=== PATIENT | female | born 1940 | race Two or more races ===

== ENCOUNTER 2023-03-28 09:24 | Outpatient (OUT) | payer OTHER, SELFPAY ==
[2023-03-28 10:01] LABS: Hematocrit 35.5 % (36.0-48.0); Hemoglobin 11.8 g/dL (12.0-16.0); Mean Corpuscular HGB Conc 33.2 g/dL (29.9-35.2); Mean Corpuscular Hemoglobin 30.5 pg (26.7-34.0); Mean Corpuscular Volume 91.7 fL (81.0-99.0); Mean Platelet Volume 9.9 fL (9.5-13.5); Platelet Count 218 10^3/uL (150-450); Red Blood Count 3.87 10^6/uL (4.20-5.40); Red Cell Distribution Width 13.1 % (11.0-15.0); White Blood Count 8.8 10^3/uL (4.0-11.0)
[2023-03-28 11:18] LABS: Alanine Aminotransferase 20 U/L (14-59); Albumin Level 3.6 g/dL (3.4-5.0); Alkaline Phosphatase 70 U/L (46-116); Anion Gap 9.6; Aspartate Amino Transferase 13 U/L (15-37); BUN Creatinine Ratio 26.7; Bilirubin Total 0.5 mg/dL (0.2-1.0); Calcium 9.6 mg/dL (8.5-10.1); Carbon Dioxide 32.4 mmol/L (21.0-32.0); Chloride 97 mmol/L (98-107); Chol HDL Ratio 2.6; Cholesterol 195 mg/dL (<=200); Estimated GFR (African America 47 (>=60); Estimated GFR (Non-African Ame 39 (>=60); Globulin 3.5 g/dL; Glucose 89 mg/dL (74-106); HDL Cholesterol 75 mg/dL (40-60); Sodium 135 mmol/L (136-145); Total Protein 7.1 g/dL (6.4-8.2); Triglycerides 95 mg/dL (<=150)
== END 2023-03-28 09:25 | disposition home or self-care (01) ==
LOC: LAB 09:25
DX: R60.0 Localized edema (principal); I10 Essential (primary) hypertension; E78.5 Hyperlipidemia, unspecified
CPT/HCPCS: 36415; 80053; 80061; 85027

== ENCOUNTER 2023-07-04 12:54 | Outpatient (OUT) | payer OTHER, SELFPAY ==
--- NOTE | 2023-07-04 12:59 | XR_ITS ---
The [address] [address] Patient Name: MARIAN LADD MRN: [id number] date: 1940 Sex: F Assigned Patient Location: [facility] Current Patient Location: [facility] Accession/Order Number: [id number] Exam Date: 07/04/2023 13:10 Report Date: 07/04/2023 14:02 At the request of: VICTOR HUGO RIOS Procedure: XR DEXA axial skeleton EXAMINATION: XR DEXA axial skeleton, 07/04/2023 1:10 PM EST HISTORY: Post Menopausal Syndrome COMPARISON: None. TECHNIQUE: Dual-energy X-ray absorptiometry (DEXA) bone density study performed for the axial skeleton. HISTORY: Post Menopausal Syndrome FINDINGS: Bone mineral density lumbar spine L1-L4 is artifactually elevated secondary to marked proliferative osteophyte formation The lowest bone mineral densities in the right femoral neck measuring 0.737 g/sq cm. T score -2.2. WHO classification: Osteopenia XR/XR DEXA axial skeleton IMPRESSION: Osteopenia. Moderate fracture risk Electronically authenticated by: ABNER SMITH Date: 07/04/2023 14:02
--- OUTSIDE RECORDS SUMMARY | 2023-07-04 13:02 | XMS_ITS | CCD ---
Author Name Unknown Address [address] [place] [address] Organization [facility] Care Team Providers Care Fatback Trimmer Name Role Phone Alisha Bergman Unavailable Medications Current Medications Medication Drug Class(es) Dates Sig (Normalized) Sig (Original) amLODIPine 10 mg oral tablet (2 sources) Dihydropyridine Calcium Channel [place] Start: 3 take 1 tablet by mouth every twenty-four hours amLODIPine Besylate 10 MG 1 tablet Orally Once a day for 90 days Mar, Active atorvastatin 10 mg oral tablet (3 sources) HMG-CoA Reductase Inhibitor take 1 tablet by mouth every twenty-four hours Atorvastatin Calcium 10 MG 1 tablet Orally Once a day for 90 days Active furosemide 20 mg oral tablet (3 sources) Loop Diuretic take 1 tablet by mouth every twenty-four hours Furosemide 20 MG 1 tablet Orally Once a day for 90 days Active hydroCHLOROthiazide 25 mg / lisinopril 20 mg oral tablet (3 sources) Thiazide Diuretic, Angiotensin Converting Enzyme Inhibitor take 1 tablet by mouth every twenty-four hours Lisinopril-hydro CHLOROthiazide 20-25 MG 1 tablet Orally Once a day Active Ketoconazole (3 sources) Azole Antifungal Start: 3 Ketoconazole 1 % 1 application Externally Once a day for 28 days Dec, Active omeprazole 20 mg delayed release oral capsule (3 sources) Proton Pump Inhibitor take 1 capsule by mouth once daily Omeprazole 20 MG 1 capsule 30 minutes before morning meal Orally Once a day for 90 days Active verapamil hydrochloride 240 mg extended release oral tablet (1 source) Calcium Channel [place] take 1 tablet by mouth every twelve hours Verapamil HCl ER 240 MG 1 tablet Orally twice a day Active Problems Problem Classification Problem Date Documented Da te Episodic/Chronic Deficiency and other anemia (1 source) Iron deficiency anemia; Translations: [Iron deficiency anemia, unspecified] Episodic Deficiency and other anemia (2 sources) Iron deficiency anemia, unspecified; Translations: [Iron deficiency anemia] Episodic Disorders of lipid metabolism (3 sources) Hyperlipidemia; Translations: [Hyperlipidemia, unspecified] Chronic Esophageal disorders (3 sources) Gastroesophageal reflux disease; Translations: [Gastro-esophageal reflux disease without esophagitis] Chronic Essential hypertension (4 sources) Essential hypertension; Translations: [Essential (primary) hypertension] Chronic Immunizations and screening for infectious disease (1 source) Encounter for immunization Episodic Other non-traumatic joint disorders (1 source) Pain in right hip Episodic Vital Signs Date Time Vital Sign Value Performing Clinician Facility 04-04-2023 10:15-0500 Body height 168.91 cm Alisha Bergman Other [facility] Other 04-04-2023 10:15-0500 Body mass index (BMI) [Ratio] 28.12 kg/m2 Alisha Bergman Other [facility] Other 04-04-2023 10:15-0500 Body weight 80.24 kg Alisha Bergman Other [facility] Other 04-04-2023 10:15-0500 Diastolic blood pressure 68 mm[Hg] Alisha Bergman Other [facility] Other 04-04-2023 10:15-0500 Respiratory rate 18 /min Alisha Bergman Other [facility] Other 04-04-2023 10:15-0500 SaO2% (BldA) [Mass fraction] 98 % Alisha Bergman Other [facility] Other 04-04-2023 10:15-0500 Systolic blood pressure 130 mm[Hg] Alisha Bergman Other [facility] Other Encounters Encounter Date Encounter Type Care Provider Facility Start: 06-15-2023 End: 06-15-2023 ambulatory Alishacarl Bergman Other [facility] Other Start: 06-15-2023 Telephone encounter Alishacarl Bergman [facility] Start: 04-04-2023 End: 04-04-2023 ambulatory Alisha Bergman Other [facility] Other Start: 04-04-2023 Office outpatient vi sit 25 minutes Alisha Bergman [facility] Start: 02-09-2023 End: 02-09-2023 ambulatory Alisha Bergman Other [facility] Other Start: 02-09-2023 Telephone encounter Alisha Bergman [facility] Immunizations Immunization Date Immunization Notes Care Provider Fa danielty 04-04-2023 Prevnar 20 Alisha Bergman Other [facility] Other 02-25-2022 influenza, seasonal, injectable Alisha Bergman Other [facility] Other Payers Date Payer Category Payer Policy ID Medicare [id number] 2.1 [id number] Medicare [id number] 2.1 [id number] Medicare [id number] 2.1 [id number] Unknown [id number] Social History Date Type Detail Facility Sex Assigned At [facility] Other Evaluation note 04-04-2023 Note Date & Type Note Facility 04-04-2023 Evaluation note Encounter Date Diagnosis Assessment Notes Mar, Right hip pain (ICD-10 - M25.551) Patient requesting to see chiropractor, referral given. Mar, Essential hypertension (ICD-10 - I10) BP well controlled on current dose of antihypertens fitz. Will change from Verapamil ER to amlodipine due to cost. Recommend checking home readings. Will f/u in 4 months for recheck Mar, Iron deficiency anemia (ICD-10 - D50.9) Hgb was just mildly low, suspect this is improved from last check since starting iron, will continue Mar, Immunization due (ICD-10 - Z23) [facility] Other Evaluation note Note Date & Type Note Facility Evaluation note No Information [facility] Other History general Narrative - Reported Note Date & Type Note Facility History general Narrative - Reported Type Medical History HTN Surgical History twisted colon sx 2014 Surgical History tonsillectomy Hospitalization History see above Hospitalization History child [facility] Other Reason for Referral Reason right hip pain Diagnosis 1 Right hip pain (M25. 551) Referral Organization [facility] Referring Provider First Name Alisha Referring Provider Last Name [facility] Referring Provider [facility] Referred Organization Unknown Facility Referred Provider Specialty Chiropractic Referral Priority Routine Additional Source Comments REASON FOR VISIT (unrecogniz ed section and content) refills3 month [facility] FOR RECORDS PERTAINING TO PATIENTS WHO ARE OR HAVE BEEN ENROLLED IN A CHEMICAL DEPENDENCY/SUBSTANCEABUSE PROGRAM, SOME INFORMATION MAY BE OMITTED. This clinical summary was aggregated from multiple sources. Caution should be exercised in using it in the provision of clinical care. This summary normalizes information from multiple sources, and as a consequence, information in this document may materially change the coding, format and clinical context of patient data. In addition, data may be omitted in some cases. CLINICAL DECISIONS SHOULD BE BASED ON THE PRIMARY CLINICAL RECORDS. [employer] provides no warranty or guarantee of the accuracy or completeness of information in this document.
== END 2023-07-04 12:55 | disposition home or self-care (01) ==
LOC: RAD 12:54
PROVIDERS: Visit Provider Nurse Practitioner
DX: M85.80 Other specified disorders of bone density and structure, unspecified site (principal); Z78.0 Asymptomatic menopausal state
CPT/HCPCS: 77080

== ENCOUNTER 2024-01-07 18:27 | Observation (INO) | payer OTHER, SELFPAY ==
[2024-01-07] VITALS (11 sets, daily range): BP systolic 124–143; BP diastolic 66–82; PULSE 0–71; TEMP 36.6–36.9; O2SAT 90–100; BMI 27.4; BMI 29.1
--- OUTSIDE RECORDS SUMMARY | 2024-01-07 18:51 | XMS_ITS | CCD ---
Author Organization [facility] Care Team Providers Care Office Nurse Name Role Phone Alisha Bergman Unavailable Arabella Maria Attending Unavailable Arabella Maria Attending Unavailable Arabella Maria Attending Unavailable Arabella Maria Attending Unavailable Arabella Maria Attending Unavailable Medications Current Medications Medication Drug Class(es) Dates Sig (Normalized) Sig (Original) amLODIPine 10 mg oral tablet (3 sources) Dihydropyridine Calcium Channel [place] Start: 3 take 1 tablet by mouth every twenty-four hours amLODIPine Besylate 10 MG 1 tablet Orally Once a day for 90 days Mar, Active atorvastatin 10 mg oral tablet (4 sources) HMG-CoA Reductase Inhibitor take 1 tablet by mouth every twenty-four hours Atorvastatin Calcium 10 MG 1 tablet Orally Once a day for 90 days Active furosemide 20 mg oral tablet (4 sources) Loop Diuretic take 1 tablet by mouth every twenty-four hours Furosemide 20 MG 1 tablet Orally Once a day for 90 days Active hydroCHLOROthiazide 25 mg / lisinopril 20 mg oral tablet (4 sources) Thiazide Diuretic, Angiotensin Converting Enzyme Inhibitor take 1 tablet by mouth every twenty-four hours Lisinopril-hydro CHLOROthiazide 20-25 MG 1 tablet Orally Once a day Active Ketoconazole (4 sources) Azole Antifungal Start: 3 Ketoconazole 1 % 1 application Externally Once a day for 28 days Dec, Active omeprazole 20 mg delayed release oral capsule (4 sources) Proton Pump Inhibitor take 1 capsule [...] Da te Episodic/Chronic Deficiency and other anemia (2 sources) Iron deficiency anemia; Translations: [Iron deficiency anemia, unspecified] Episodic Deficiency and other anemia (2 sources) Iron deficiency anemia, unspecified; Translations: [Iron deficiency anemia] Episodic Disorders of lipid metabolism (4 sources) Hyperlipidemia; Translations: [Hyperlipidemia, unspecified] Chronic Esophageal disorders (4 sources) Gastroesophageal reflux disease; Translations: [Gastro-esophageal reflux disease without esophagitis] Chronic Essential hypertension (5 sources) Essential hypertension; Translations: [Essential (primary) hypertension] Chronic Immunizations and screening for infectious disease (1 source) Encounter for immunization Episodic Other non-traumatic joint disorders (1 source) Pain in right hip Episodic Results Test Name Value Interpretation Reference Range Facil ity Family Medicine Office/Clini c Noteon 12-26-2023 Family Medicine Office/Clinic Note Family Medicine Office/Clinic Note HPI Staff Marian is a 83 year old female presenting with recheck B/P and also inquiring about lab she was here 2 weeks ago for Wellness, so she wasn't sure if she needs labs, she has been fasting this morning in case she can get her labs done here today No issues going on with her. No questions or concerns today History of Present Illness pt presents today for BP check Review of Systems PHQ Score Initial Depression Screen Score: 0 SCORE Physical Exam Vitals & Measurements T: 36.8 ?C(Temporal Artery) HR: 80(Peripheral) RR: 20 BP: 122/84 SpO2: 97% HT: 67 in HT: 170.0 cm WT: 80.3 kg WT: 176.66 lb BMI: 27.79 General: alert, no acute distress ENMT: oral mucosa moist, no pharyngeal erythema or exudate Cardiovascular: regular rate and rhythm, normal peripheral perfusion Respiratory: Lungs CTA, respirations non labored Extremities: no deformity, no trauma Neurological: oriented x 4, LOC appropriate for age, CN II-XII intact, motor strength equal & normal bilaterally, speech normal Assessment/Plan 1. Hyperlipidemia (E78.5: Hyperlipidemia, unspecified) pt had labs last March. Will order labs today. she will return in March for lab work. pt denies needs at this time. RTC 6 months Ordered: Comprehensive Metabolic Panel Lipid Panel Thyroid Stimulating Hormone 2. Hypertension (I10: Essential (primary) hypertension) BP at goal today Ordered: Comprehensive Metabolic Panel Lipid Panel Thyroid Stimulating Hormone 3. BMI 28.0-28.9,adult (Z68.28: Body mass index [BMI] 28.0-28.9, adult) BMI education given Ordered: Comprehensive Metabolic Panel Lipid Panel Thyroid Stimulating Hormone 4. Non-smoker (Z78.9: Other specified health status) continue not smoking Ordered: Comprehensive Metabolic Panel Lipid Panel Thyroid Stimulating Hormone Follow-up No qualifying data available Problem List/Past Medical History Ongoing BMI 28.0-28.9,adult GERD (gastroesophageal reflux disease) Hyperlipidemia Hypertension Osteopenia Post menopausal syndrome Wellness examination Historical No qualifying data Procedure/Surgical History Bilateral cataract surgery (2019), Surgery. Medications atorvastatin 10 mg Tab, 10 mg= 1 tab(s), Oral, Daily, 3 refills Citracal + D, 1 tab, Oral, Daily ferrous sulfate, 65 mg, Oral, Daily Fosamax 70 mg Tab, 70 mg= 1 tab(s), Oral, q7day, 3 refills furosemide 20 mg Tab, 20 mg= 1 tab(s), Oral, Daily, 3 refills hydrochlorothiazide-li sinopril 25 mg-20 mg Tab, 1 tab(s), Oral, Daily, 3 refills magnesium gluconate 250 mg oral tablet, 250 mg= 1 tab(s), Oral, Daily omeprazole 20 mg Cap-DR, 20 mg= 1 cap(s), Oral, Daily, 3 refills potassium chloride 20 mEq ER Tab, 20 mEq= 1 tab(s), Oral, Daily, 3 refills verapamil 240 mg ER Tab, 240 mg= 1 tab(s), Oral, q12hr, 3 refills Vitamin D3, See Instructions Allergies No Known Allergies Social History Alcohol Current, Liquor, 1-2 times per year, Alcohol use interferes with work or home: No. Drinks more than intended: No. Others hurt by drinking: No. Ready to change: No. Household alcohol concerns: No., 12/13/2023 Substance Abuse - Denies Substance Abuse, 12/13/2023 Tobacco - Denies Tobacco Use, 12/13/2023 Never (less than 100 in lifetime) Tobacco Use:. Never Smokeless Tobacco Use:. Cigarettes, Household tobacco concerns: No., 12/26/2023 Family History Esophageal cancer: Mother. Primary malignant neoplasm of prostate: Father. Immunizations Vaccine Date Status pneumococcal 20-valent conjugate vaccine 04/04/2023 Recorded influenza virus vaccine, inactivated 03/02/2023 Recorded Normal [facility] Comment on above: Result Comment: Elec tronically Signed By: Arabella Mesa\.vianey\Date and Time Signed: 12/26/23 11:37 EDT Family Medicine Office/Clini c Noteon 12-14-2023 Family Medicine Office/Clinic Note Family Medicine Office/Clinic Note Chief Complaint Medicare Wellness Visit Review of Systems PHQ Score Initial Depression Screen Score: 0 SCORE Physical Exam Vitals & Measurements HT: 170 cm HT: 67 in WT: 81.2 kg WT: 178.64 lb BMI: 28.1 Assessment/Plan 1. Annual visit for general adult medical examination without abnormal findings (Z00.00: Encounter for general adult medical examination without abnormal findings) The patient was given a customized and personalized print out of all the current AHRQ USPSTF?s recommendations for preventative services and all current CDC recommended immunizations, relevant risk recommendations and the following patient brochures were given. Reviewed Medicare Prevention Services checklist. CDC-Falls Prevention and home safety screening reviewed. Patient denies any falls in last 12 months, voices no worry about falling. Exhibits no problems with sitting, standing or ambulation. Patient aware with keeping walk way area free of clutter to prevent tripping and/or falling. [place] Advance Directives reviewed. Documents remain at home, encouraged to bring in for scanning into chart. Patient denies any problems with ADL?s and Instrumental ADL?s. Cognitive screening completed with memory and clock face drawing. No deficits noted. Immunization record reviewed, discussed Shingrix vaccine with educational handout and availability. No COVID vaccines have been administered. Allergies and medications reviewed and up to date. No concerns with taking medication as prescribed. Reviewed OTC medications, medication list up to date. Blood tests were reviewed: UTD. Patient will continue to have routine blood work done as directed by pcp. No concerns with bowel/ bladder. Patient has aged out for routine colonoscopies and understands that if changes in bowels occurs to contact pcp. Reviewed pain symptoms : back pain present. Patient rates pain as a 4 out of 10, no pain medications taken. Patient is following up with Dr. Luciano, Chiropractor. Reviewed all outside providers that patient follows. Last visit summary notes available in chart and/or have been requested. Patient declines any signs or symptoms of depression at this time. 8 minutes spent with screening and documentation. PHQ2 screening score 0. Patient drinks alcohol 1-2 times yearly. Patient has no more than 1-2 alcohol drinks, denies concerns. 8 minutes spent with screening and documentation. Audit score 1. Follow up scheduled with PCP, 12/26/23 AWV has been scheduled, 12/15/2024 Patient agrees to a [facility] referral. Information handout provided to patient. CCM Nurse Card also provided to patient. 2. Hypertension (I10: Essential (primary) hypertension) Patient is taking daily as directed. Does monitor BP pressure at home. HTN stoplight reviewed with BP goal to be <140/90. Reviewed different factors that can alter blood pressure readings. Education handout provided with s/s to monitor for and report to provider. Patient is encouraged to increase portions of fruit, vegetables, fiber and increase exercise as much as tolerable. Reviewed importance with monitoring foods high in salt content and encouraged to limit intake, if unsure encouraged to discuss with their PCP. Encouraged to eat more chicken, fish and lean white meats and limits red meats in diet. Discussed importance with keeping BP under good control to reduce CVA risk factors. Handouts on Cardiac nutrition, low sodium seasoning, and High Blood Pressure and Older Adults from the [employer] [place] [employer] provided. Will continue to f/u with PCP during office visits and as needed. 3. GERD (gastroesophageal reflux disease) (K21.9: Gastro-esophageal reflux disease without esophagitis) Patient is aware of diet changes with healthier eating habits, such as not eating late at night, losing or maintaining a healthy weight. Importance of not smoking and avoiding and/or reducing alcohol intake. Avoid tight clothing around the waist line and try to avoid spicy or high acid foods. Patient taking PPI medications as directed with symptom management. Reviewed nutrition therapy with recommended foods to help control your symptoms. Will continue to follow up with pcp as directed and prn. 4. Hyperlipidemia (E78.5: Hyperlipidemia, unspecified) Reviewed healthy lifestyle with low fat diet and exercise regimen. When you are overweight our body produces more lipids. Risk also increases with family history of hyperlipidemia and with monitoring alcohol use and avoid smoking. Pt voices understanding with importance of monitoring dietary intake to reduce risk factors associated with CVA. Taking statin medications daily as directed. Will continue to follow up with office visits with updated labs as directed. 5. Osteopenia (M85.80: Other specified disorders of bone density and structure, unspecified site) Patient takes alendronate as prescribed for management of her Osteopenia. Denies any bone pain or discomfort. Patient has no reports of fractures. (more content not included)... [facility] Comment on above: Result Comment: Elec tronically Signed By: Arabella Mesa\.br\Date and Time Signed: 12/14/23 12:54 EDT\.br\Electronically Co-Signed By: Blanca Rosas\.br\Date and Time Co-Signed: 12/14/23 11:13 EDT Dexa Scanson 07-05-2023 Dexa Scans [id number]#[id number] 0TIFF [facility] Dexa Scans [id number]#1.0 0TIFF [facility] Transfer Inon 06-21-2023 Transfer In [id number]#[id number] 0TIFF [facility] Ambulatory Visit Summaryon 0 06-19-2023 Ambulatory Visit Summary MARIAN LADD :1940 Visit Date:06/19/2023 Ambulatory Visit Instructions Your Diagnosis Wellness examination Hypertension Hyperlipidemia GERD (gastroesophageal reflux disease) BMI 28.0-28.9,adult Non-smoker Your Care Team Attending Physician - Arabella Mesa Primary Care Physician - Arabella Mesa This Is Your Medications List atorvastatin (atorvastatin 10 mg Tab) furosemide (furosemide 20 mg Tab) hydrochlorothiazide-li sinopril (hydrochlorothiazide-l isinopril 25 mg-20 mg Tab) omeprazole (omeprazole 20 mg Cap-DR) verapamil (verapamil 240 mg ER Tab) Procedures Performed Surgery. Discharge Vitals Heart Rate (Peripheral) 80 Respiratory Rate 18 Blood Pressure 118/66 Height 169.3 cm Height 67 in Weight 81.1 kg Weight 178.42 lb BMI 28.29 Medications What How Much When Instructions Unchanged atorvastatin (atorvastatin 10 mg Tab) 1 Tablets By Mouth Every day Oral, 0 Refill(s) Unchanged furosemide (furosemide 20 mg Tab) 1 Tablets By Mouth Every day Oral, 0 Refill(s) Unchanged hydrochlorothiazide-li sinopril (hydrochlorothiazide-l isinopril 25 mg-20 mg Tab) 1 Tablets By Mouth Every day Oral, 0 Refill(s) Unchanged omeprazole (omeprazole 20 mg Cap-DR) 1 Capsules By Mouth Every day Oral, 0 Refill(s) Unchanged verapamil (verapamil 240 mg ER Tab) 1 Tablets By Mouth Every 12 hours Allergies No Known Allergies Problems Ongoing - Any problem that you are currently receiving treatment for. GERD (gastroesophageal reflux disease) Hyperlipidemia Hypertension Wellness examination Patient Survey You may receive a survey via text or e-mail asking about your office visit. Please share your experience with us by completing your survey. We appreciate your feedback and thank you for choosing us for your care. [facility] Auth for Release of Medical Recordson 06-19-2023 Auth for Release of Medical Records [id number] 0TIFF Normal [facility] Family Medicine Office/Clini c Noteon 06-19-2023 Family Medicine Office/Clinic Note HPI Staff Marian is a 82 year old female presenting to [facility] care Establish Care: History: Any previous diagnosis: HTN, Gerd, edema BLE History of seeing any specialist: Client Relation Specialist When was your last doctors visit: Last provider: Alisha Grant Any recent labs: 03/2023 [facility](labs requested) Health Maintenance UTD: Colonoscopy: aged out Mammogram: aged out Pelvic/Pap: aged out Acute: Current issues/complaints: pt needs refills on all medications. History of Present Illness pt presents today for annual wellness visit. needs refills on all meds. labs done at [facility] in March. Review of Systems PHQ Score Initial Depression Screen Score: 0 SCORE ROS - Provider Constitutional: no fever, no chills, no sweats, no fatigue Respiratory: no shortness of breath, no cough, no orthopnea, no wheezing. Cardiovascular: no chest pain, no palpitations, no edema. Neurologic: no headache, no dizziness, no numbness, no weakness. Physical Exam Vitals & Measurements HR: 80(Peripheral) RR: 18 BP: 118/66 SpO2: 99% HT: 67 in HT: 169.3 cm WT: 81.1 kg WT: 178.42 lb BMI: 28.29 General: alert, no acute distress ENMT: oral mucosa moist, no pharyngeal erythema or exudate Cardiovascular: regular rate and rhythm, normal peripheral perfusion Respiratory: Lungs CTA, respirations non labored Extremities: no deformity, no trauma Neurological: oriented x 4, LOC appropriate for age, CN II-XII intact, motor strength equal & normal bilaterally, speech normal Assessment/Plan 1. Wellness examination (Z00.00: Encounter for general adult medical examination without abnormal findings) pt presents today for wellness visit. pt is doing well. denies needs at this time. labs from March reviewed. pt signed release of info for previous PCP in [place]. Dexa scan ordered to be done at [facility]. RTC 6 months 2. Hypertension (I10: Essential (primary) hypertension) BP at goal today 3. Hyperlipidemia (E78.5: Hyperlipidemia, unspecified) pt had labs drawn in March. copy scanned into chart 4. GERD (gastroesophageal reflux disease) (K21.9: Gastro-esophageal reflux disease without esophagitis) refill sent 5. BMI 28.0-28.9,adult (Z68.28: Body mass index [BMI] 28.0-28.9, adult) BMI education complete 6. Non-smoker (Z78.9: Other specified health status) continue not smoking 7. Post menopausal syndrome (N95.1: Menopausal and female climacteric states) dexa scan ordered Orders: atorvastatin, 10 mg = 1 tab(s), Oral, Daily, # 90 tab(s), Refills(s) 3, Pharmacy: [facility] #[id number], 169.3, cm, 06/19/23 13:14:00 EST, Height/Length Dosing, 81.1, kg, 06/19/23 13:14:00 EST, Weight Dosing furosemide, 20 mg = 1 tab(s), Oral, Daily, # 90 tab(s), Refills(s) 3, Pharmacy: [facility]/pharm[facility] #[id number], 169.3, cm, 06/19/23 13:14:00 EST, Height/Length Dosing, 81.1, kg, 06/19/23 13:14:00 EST, Weight Dosing hydrochlorothiazide-li sinopril, 1 tab(s), Oral, Daily, 90 tab(s), Refill(s) 3, Oral, 0 Refill(s), [facility] #[id number], 169.3, cm, 06/19/23 13:14:00 EST, Height/Length Dosing, 81.1, kg, 06/19/23 13:14:00 EST, Weight Dosing omeprazole, 20 mg = 1 cap(s), Oral, Daily, # 90 cap(s), Refills(s) 3, [id number], 169.3, cm, 06/19/23 13:14:00 EST, Height/Length Dosing, 81.1, kg, 06/19/23 13:14:00 EST, Weight Dosing potassium chloride, 20 mEq = 1 tab(s), Oral, Daily, # 90 tab(s), Refills(s) 3, [id number], 169.3, cm, 06/19/23 13:14:00 EST, Height/Length Dosing, 81.1, kg, 06/19/23 13:14:00 EST, Weight Dosing verapamil, 240 mg = 1 tab(s), Oral, q12hr, # 180 tab(s), Refills(s) 3, [id number], 169.3, cm, 06/19/23 13:14:00 EST, Height/Length Dosing, 81.1, kg, 06/19/23 13:14:00 EST, Weight Dosing Follow-up No qualifying data available Problem List/Past Medical History Ongoing GERD (gastroesophageal reflux disease) Hyperlipidemia Hypertension Post menopausal syndrome Wellness examination Historical No qualifying data Procedure/Surgical History Surgery. Medications atorvastatin 10 mg Tab, 10 mg= 1 tab(s), Oral, Daily, 3 refills furosemide 20 mg Tab, 20 mg= 1 tab(s), Oral, Daily, 3 refills hydrochlorothiazide-li sinopril 25 mg-20 mg Tab, 1 tab(s), Oral, Daily, 3 refills omeprazole 20 mg Cap-DR, 20 mg= 1 cap(s), Oral, Daily, 3 refills potassium chloride 20 mEq ER Tab, 20 mEq= 1 tab(s), Oral, Daily, 3 refills verapamil 240 mg ER Tab, 240 mg= 1 tab(s), Oral, q12hr, 3 refills Allergies No Known Allergies Social History Tobacco Never (less than 100 in lifetime) Tobacco Use:. Never Smokeless Tobacco Use:. Household tobacco concerns: No., 06/19/2023 Family History Esophageal cancer: Mother. Primary malignant neoplasm of prostate: Father. Immunizations Vaccine Date Status pneumococcal 20-valent conjugate vaccine 04/04/2023 Recorded influenza virus vaccine, inactivated 03/02/2023 Recorded Normal [facility] Comment on above: Result Comment: Elec tronically Signed By: Arabella Mesa.br\Date and Time Signed: 06/19/23 14:21 EST Lab Reportson 06-19-2023 Lab Reports [id number] TIFF Normal [facility] Physician Orderon 06-19-2023 Physician Order [id number] TIFF [facility] Vital Signs Date Time Vital Sign Value Performing Clinician Facility 04-04-2023 10:15-0500 Body height 168.91 cm Alisha Bergman Other [facility] Other 04-04-2023 10:15-0500 Body mass index (BMI) [Ratio] 28.12 kg/m2 Alisha Bergman Other [facility] Other 04-04-2023 10:15-0500 Body weight 80.24 kg Alisha Bergman Other [facility] Other 04-04-2023 10:15-0500 Diastolic blood pressure 68 mm[Hg] Alisha Bergman Other [facility] Other 04-04-2023 10:15-0500 Respiratory rate 18 /min Alisha Bergman Other [facility] Other 04-04-2023 10:15-0500 SaO2% (BldA) [Mass fraction] 98 % Alisha Bergman Other [facility] Other 04-04-2023 10:150500 Systolic blood pressure 130 mm[Hg] Alisha Bergman Other [facility] Other Encounters Encounter Date Encounter Type Care Provider Facility Start: 12-15-2024 ambulatory Arabella L Candace Facility: [facility] [place] Start: 04-22-2024 ambulatory Arabella L Candace Facility: [facility] [place] Start: 12-26-2023 End: 12-26-2023 ambulatory Arabella L Candace Facility:[facility] [place] [facility] Start: 12-13-2023 End: 12-13-2023 ambulatory Arabella L Candace Facility:[facility] [place] [facility] Start: 06-25-2023 End: 06-25-2023 ambulatory Alisha Bergman Other [facility] Other Start: 06-25-2023 Telephone encounter Alisha Bergman [facility] Start: 06-19-2023 ambulatory Arabella Candace Facility:[facility] [place] Start: 06-19-2023 End: 06-19-2023 ambulatory Arabella L Candace Facility:[facility] [place] [facility] Start: 06-15-2023 End: 06-15-2023 ambulatory Alisha Bergman Other [facility] Other Start: 06-15-2023 Telephone encounter Alisha Bergman [facility] Start: 04-04-2023 End: 04-04-2023 ambulatory Alisha Bergman Other [facility] Other Start: 04-04-2023 Office outpatient vi sit 25 minutes Alisha Bergman [facility] Start: 02-09-2023 End: 02-09-2023 ambulatory Alisha Bergman Other [facility] Other Start: 02-09-2023 Telephone encounter Alisha Bergman [facility] [place] Immunizations Immunization Date Immunization Notes Care Provider Nancy delgado 04-04-2023 Prevnar 20 Alisha Bergman Other [facility] Other 02-25-2022 influenza, seasonal, injectable Alisha Bergman Other [facility] Other Payers Date Payer Category Payer Unknown [id number] 1940 Unknown [id number] 2.16.8 [id number] 1940 Unknown [id number] 2.16.8 [id number] 1940 Unknown [id number] 2.16.8 [id number] 1940 Unknown [id number] 2.16.8 [id number] 1940 Unknown [id number] 2.16.8 [id number] Medicare [id number] 2.1 [id number] Medicare [id number] 2.1 [id number] Medicare [id number] 2.1 [id number] Social History Date Type Detail Facility Sex Assigned At [facility] Other Clinical Note 12-13-2023 Note Date & Type Note Facility 12-13-2023 Note Patient Education Cardiovascular Managing Your Hypertension Hypertension, also called high blood pressure, is when the force of the blood pressing against the lam of the arteries is too strong. Arteries are blood vessels that carry blood from your heart throughout your body. Hypertension forces the heart to work harder to pump blood and may cause the arteries to become narrow or stiff. Understanding blood pressure readings A blood pressure reading includes a higher number over a lower number: ? The first, or top, number is called the systolic pressure. It is a measure of the pressure in your arteries as your heart beats. ? The second, or bottom number, is called the diastolic pressure. It is a measure of the pressure in your arteries as the heart relaxes. For most people, a normal blood pressure is below 120/80. Your personal target blood pressure may vary depending on your medical conditions, your age, and other factors. Blood pressure is classified into four stages. Based on your blood pressure reading, your health care provider may use the following stages to determine what type of treatment you need, if any. Systolic pressure and diastolic pressure are measured in a unit called millimeters of mercury (mmHg). Normal ? Systolic pressure: below 120. ? Diastolic pressure: below 80. Elevated ? Systolic pressure: 120?129. ? Diastolic pressure: below 80. Hypertension stage 1 ? Systolic pressure: 130?139. ? Diastolic pressure: 80?89. Hypertension stage 2 ? Systolic pressure: 140 or above. ? Diastolic pressure: 90 or above. How can this condition affect me? Managing your hypertension is very important. Over time, hypertension can damage the arteries and decrease blood flow to parts of the body, including the brain, heart, and kidneys. Having untreated or uncontrolled hypertension can lead to: ? A heart attack. ? A stroke. ? A weakened blood vessel (aneurysm). ? Heart failure. ? Kidney damage. ? Eye damage. ? Memory and concentration problems. ? Vascular dementia. What actions can I take to manage this condition? Hypertension can be managed by making lifestyle changes and possibly by taking medicines. Your health care provider will help you make a plan to bring your blood pressure within a normal range. You may be referred for counseling on a healthy diet and physical activity. Nutrition ? Eat a diet that is high in fiber and potassium, and low in salt (sodium), added sugar, and fat. An example eating plan is called the DASH diet. DASH stands for Dietary Approaches to Stop Hypertension. To eat this way: ? Eat plenty of fresh fruits and vegetables. Try to fill one-half of your plate at each meal with fruits and vegetables. ? Eat whole grains, such as whole-wheat pasta, brown rice, or whole-grain bread. Fill about one-fourth of your plate with whole grains. ? Eat low-fat dairy products. ? Avoid fatty cuts of meat, processed or cured meats, and poultry with skin. Fill about one-fourth of your plate with lean proteins such as fish, chicken without skin, beans, eggs, and tofu. ? Avoid pre-made and processed foods. These tend to be higher in sodium, added sugar, and fat. ? Reduce your daily sodium intake. Many people with hypertension should eat less than 1,500 mg of sodium a day. Lifestyle ? Work with your health care provider to maintain a healthy body weight or to lose weight. Ask what an ideal weight is for you. ? Get at least 30 minutes of exercise that causes your heart to beat faster (aerobic exercise) most days of the week. Activities may include walking, swimming, or biking. ? Include exercise to strengthen your muscles (resistance exercise), such as weight lifting, as part of your weekly exercise routine. Try to do these types of exercises for 30 minutes at least 3 days a week. ? Do not use any products that contain nicotine or tobacco. These products include cigarettes, chewing tobacco, and vaping devices, such as e-cigarettes. If you need help quitting, ask your health care provider. ? Control any long-term (chronic) conditions you have, such as high cholesterol or diabetes. ? Identify your sources of stress and find ways to manage stress. This may include meditation, deep breathing, or making time for fun activities. Alcohol use ? Do not drink alcohol if: ? Your health care provider tells you not to drink. ? You are , may be , or are planning to become . ? If you drink alcohol: ? Limit how much you have to: ? 0?1 drink a day for women. ? 0?2 drinks a day for men. ? Know how much alcohol is in your drink. In the [place] one drink equals one 12 oz bottle of beer (355 mL), one 5 oz glass of wine (148 mL), or one 1? oz glass of hard liquor (44 mL). Medicines Your health care provider may prescribe medicine if lifestyle changes are not enough to get your blood pressure under control and if: ? Yo (more content not included)... [facility] Evaluation note 04-04-2023 Note Date & Type [...] continue Mar, Immunization due (ICD-10 - Z23) [employer] Other Evaluation note Note Date & Type Note Facility Evaluation note No Information [employer] Other History general Narrative - Reported Note Date & Type Note Facility History general Narrative - Reported Type Medical History HTN Surgical History twisted colon sx 2014 Surgical History tonsillectomy Hospitalization History see above Hospitalization History child [employer] Other Reason for Referral Reason right hip pain Diagnosis 1 Right hip pain (M25. 551) Referral Organization [facility] Referring Provider First Name Alisha Referring Provider Last Name [facility] Referring Provider Specialty Family Medi cine Referred Organization Unknown Facility Referred Provider Specialty Chiropractic Referral Priority Routine Summary Purpose Family History No Family History Records Found Advance Directives No Advanced Directives Records Found Additional Source Comments REASON FOR VISIT (unrecogniz ed section and content) refills3 month Follow uplett erletter INFORMATION SOURCE (unrecogn ized section and content) DATE CREATED AUTHOR 12/27/2023 [facility] FOR RECORDS PERTAINING TO PATIENTS WHO ARE [...] BE BASED ON THE PRIMARY CLINICAL RECORDS. [facility]. provides no warranty or guarantee of the accuracy or completeness of information in this document.
--- NOTE | 2024-01-07 19:21 | PC.NURSE ---
to ED with c/o right ankle/ lower leg injury and pain States she was walking inn her home and got dizzy, fell to her knees and her leg hit the wall After that, she had pain and was unable to bear weight on her right leg There is bruising and swelling to the LLE Pedal pulses remain intact
--- NOTE | 2024-01-07 19:50 | XR_ITS ---
[address] [address] Patient Name: MARIAN LADD MRN: [id number] date: 1940 Sex: F Assigned Patient Location: ER Current Patient Location: ER Accession/Order Number: [id number] Exam Date: 01/07/2024 20:00 Report Date: 01/07/2024 21:03 At the request of: JOSI MARKER Procedure: XR tibia fibula RT 2V XR tibia fibula RT 2V, 01/07/2024 7:00 PM CDT: History: fall, distal tibial pain and bruising. . Comparison: None. 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 There is an acute displaced bimalleolar fracture of the ankle with soft tissue swelling surrounds the ankle. Electronically authenticated by: TARA AGGARWAL Date: 01/07/2024 21:03
--- NOTE | 2024-01-07 19:50 | XR_ITS ---
The [place] [id number] Patient Name: MARIAN LADD MRN: [id number] date: 1940 Sex: F Assigned Patient Location: ER Current Patient Location: ER Accession/Order Number: [id number] Exam Date: 01/07/2024 20:00 Report Date: 01/07/2024 21:02 At the request of: JOSI MARKER Procedure: XR ankle RT min 3V XR ankle RT min 3V, 01/07/2024 7:00 PM CDT: History: fall, medial ankle and lower leg pain. . Comparison: None. Technique: 3 views right ankle Findings/Impression: There is an acute displaced bimalleolar fracture with prominent soft tissue swelling surrounding the ankle. Electronically authenticated by: TARA AGGARWAL Date: 01/07/2024 21:02
--- NOTE | 2024-01-07 19:51 | ED.LOWEXI1 ---
HPI HPI - Extremity Injury (Lower) General Chief Complaint: Extremity Injury, Lower Stated Complaint: Lower Extremity Injury from Fall Time Seen by Provider: 01/07/24 19:46 Source: patient and family Mode of arrival: Wheelchair Limitations: no limitations History of Present Illness HPI Narrative: This 83-year-old female presents for evaluation of a right lower extremity injury. The patient states she was in her chair earlier today and her woke her up and called to her and she got out of the chair quickly and felt dizzy. She states she fell walking from her chair into the kitchen. She denies striking her head. She denies any neck or back pain. Her states that they had to call the neighbor to help her up off the floor because she cannot weight-bear. She has pain, swelling and bruising to the medial aspect of the right lower leg from the mid to distal tibia to the ankle area. She denies any pain on the lateral aspect of the ankle. She denies any knee, thigh or hip pain. She took 2 Tylenol earlier today with minimal clinical improvement. Related Data Allergies Allergy/AdvReac Type Severity Reaction Status Date / Time No Known Drug Allergies Allergy Verified 01/07/24 18:42 Opioid HPI Opioid Management Most Recent Pain and Opioid Data: No Data to Display Review of Systems ROS Status of ROS 10 or more systems reviewed and unremarkable except as noted in history and below Exam Narrative Exam Narrative: Vital signs and Nursing Notes reviewed: Patient is afebrile with a normal pulse, normal blood pressure, she is not hypoxic with pulse ox of 97% on room air General: Awake, alert, oriented, no acute distress, lying comfortably on the stretcher HEENT: Normocephalic atraumatic, mucous membranes are moist and pink, eyes are clear, normal conjunctiva, vision is grossly intact Chest: Lungs are clear to auscultation with good air entry, there is no wheezing rhonchi or rales appreciated no accessory muscle use, patient is speaking in complete sentences-no chest wall tenderness to palpation CVS: Regular rate and rhythm S1-S2, no murmurs rubs or gallops, pulses are brisk and equal bilaterally Extremities: There is tenderness, swelling and ecchymosis to the medial aspect of the right lower leg from the mid to distal tibia to the medial malleolus, there is tenderness and mild swelling to the lateral malleolus. DP and TP pulses are intact. Capillary refill is less than 2 seconds and toes are warm and sensate. No bony deformity noted. Pulses are brisk and equal bilaterally. Achilles is intact. There is no tenderness to the knee or hip. Skin: Normal in appearance without rash,pallor, petechiae or purpura Neuro: No focal deficits Constitutional Vital Signs, click to edit/add: Last Vital Signs Temp 98.4 F 01/07/24 18:40 Pulse 71 01/07/24 18:40 Resp 18 01/07/24 18:40 BP 124/82 01/07/24 18:40 Pulse Ox 97 01/07/24 18:40 O2 Del Method Room Air 01/07/24 18:40 Course Vital Signs Vital signs: Vital Signs Temperature 98.4 F 01/07/24 18:40 Pulse Rate 71 01/07/24 18:40 Respiratory Rate 18 01/07/24 18:40 Blood Pressure 124/82 01/07/24 18:40 Pulse Oximetry 97 01/07/24 18:40 Oxygen Delivery Method Room Air 01/07/24 18:40 Temperature 98.4 F 01/07/24 18:40 Pulse Rate 71 01/07/24 18:40 Respiratory Rate 18 01/07/24 18:40 Blood Pressure 124/82 01/07/24 18:40 Pulse Oximetry 97 01/07/24 18:40 Oxygen Delivery Method Room Air 01/07/24 18:40 MDM - Extremity Injury (Lower) MDM Narrative Medical decision making narrative: This 83-year-old female presents for evaluation of a right lower extremity injury. The patient states her woke her up while she was sleeping in her chair and she jumped up and initially became dizzy. She fell between her chair and the kitchen where she was walking to injuring her right lower extremity. She has tenderness and swelling at the distal tibia and fibula. Pulses are brisk and equal. Her neuroexam was normal. She denies any dizziness or chest pain upon arrival. X-ray of the right lower extremity shows a mildly displaced distal tibia and mildly displaced distal fibula consistent with a bimalleolar fracture.. The x-rays were reviewed by Dr. Deleon who agrees to see the patient in consult. The results of the x-ray were discussed with the patient and her . She signed consent for procedural sedation and reduction of the right distal tibia and fibular fracture. Please see procedure note Preop workup was ordered including EKG, CBC with differential, comprehensive metabolic profile and troponin due to her history of dizziness prior to her fall. She has a normal white count and hemoglobin. Electrolytes are essentially normal with a mild elevation in her creatinine at 1.3. Troponin is normal. Chest x-ray was negative for acute findings. She will be admitted to the hospitalist service with consultation by Dr. Deleon for surgical repair of this bimalleolar fracture. Medical Records Attestation: I reviewed the patient's medical records. Medical records narrative: [place] [address] XRay Report Signed Patient: MARIAN LADD MR#: [id number] : 1940 Acct:[id number] Age/Sex: 83 / F ADM Date: 01/07/24 Loc: ER Attending Dr: Ordering Physician: Josi Sanon Date of Service: 01/07/24 Procedure(s): XR ankle RT min 3V Accession Number(s): [id number] cc: Josi Sanon; Physician,Non-Staff M.D.~ [facility] [place] [id number] Patient Name: MARIAN LADD MRN: [id number] date: 1940 Sex: F Assigned Patient Location: ER Current Patient Location: ER Accession/Order Number: [id number] Exam Date: 01/07/2024 20:00 Report Date: 01/07/2024 21:02 At the request of: JOSI SANON Procedure: XR ankle RT min 3V XR ankle RT min 3V, 01/07/2024 7:00 PM CDT: History: fall, medial ankle and lower leg pain. . Comparison: None. Technique: 3 views right ankle Findings/Impression: There is an acute displaced bimalleolar fracture with prominent soft tissue swelling surrounding the ankle. Electronically authenticated by: TARA AGGARWAL Date: 01/07/2024 21:02 Lab Data Attestation: I reviewed the patient's lab results. ECG Data Attestation: I personally reviewed and interpreted this ECG as follows: (Sinus rhythm at 64 bpm, left axis deviation, right bundle branch block, no acute ST segment elevation or T wave inversion) Critical Care Time Critical Care Time Total Critical Care Time: 35 Discharge Plan Discharge Chief Complaint: Extremity Injury, Lower Clinical Impression: Fall from standing, Bimalleolar fracture of right ankle Patient Disposition: Admitted As Inpatient Time of Disposition Decision: 22:08 Condition: Good Print Language: Slovenian Referrals: Physician,Non-Staff, MD [Primary Care Provider] - 1 week Procedures ED Procedure Instructions Procedures Procedures: Procedure note: Reduction of right lower extremity fracture dislocation with procedural sedation. The procedure was explained to the patient and her in detail. Consent was signed. An X was placed onto the right lower extremity. Timeout was called. The patient was medicated with IV morphine, Zofran and IV Versed. When anesthesia was obtained the right lower extremity was gently reduced and a posterior and sugar-tong splint was placed onto the right lower extremity. Patient tolerated procedure well and after the procedure a post reduction x-ray showed good alignment of the distal fibula.
--- NOTE | 2024-01-07 20:32 | XR_ITS ---
The [address] [address] Patient Name: MARIAN LADD MRN: [id number] date: 1940 Sex: F Assigned Patient Location: ER Current Patient Location: ER Accession/Order Number: [id number] Exam Date: 01/07/2024 21:30 Report Date: 01/07/2024 22:15 At the request of: JOSI MARKER Procedure: XR chest 1V XR chest 1V 01/07/2024 8:30 PM CDT: History: pre op Comparison: None. Technique: 1 view chest Findings: The cardiomediastinal silhouette is normal. There is mild linear atelectasis or scar in the left lung base. Otherwise, the lungs are clear without infiltrate, effusion, or pneumothorax. The bones are intact. XR/XR chest 1V Impression: No acute cardiopulmonary process. Electronically authenticated by: TARA AGGARWAL Date: 01/07/2024 22:15
--- NOTE | 2024-01-07 20:32 | ECG_ITS ---
The [facility] Test Date: 2024-01-07 Pat Name: MARIAN LADD Department: Room: - Gender: Female Private Duty Nurse: : 1940 Requested By: MITESH TERAN Order Number: [id number] Reading MD: KAM TRACY Measurements Intervals Ronald Rate: 64 P: 90 ME: 208 QRS: -32 QRSD: 144 T: 12 QT: 446 QTc: 456 Interpretive Statements 1100 Sinus rhythm 2450 Right bundle branch block 7200 Abnormal left axis deviation 9150 abnormal ECG No previous ECG available for comparison Electronically Signed On 01-09-2024 22:07:35 EDT by KAM TRACY
[2024-01-07] MEDS: 0.9 % SODIUM CHLORIDE 1,000 ML 125 ML IV (21:15)
[2024-01-07] MEDS: MORPHINE SULFATE 4 MG/ML VIAL IV (21:16)
[2024-01-07] MEDS: ONDANSETRON PF 4 MG/2 ML VIAL IV (21:16)
[2024-01-07 21:21] LABS: Basophils Absolute Auto 0.1 10^3/uL (0.0-0.1); Basophils Percent Auto 0.4 % (0.2-2.0); Eosinophils Absolute Auto 0.2 10^3/uL (0.0-0.7); Eosinophils Percent Auto 2.1 % (0.9-7.0); Hematocrit 32.7 % (36.0-48.0); Hemoglobin 10.9 g/dL (12.0-16.0); Immature Granulocytes Abs Auto 0.06 10^3/uL (0.00-0.03); Immature Granulocytes Pct Auto 0.5 % (0.0-0.5); Lymphocytes Absolute Auto 1.3 10^3/uL (1.2-3.8); Mean Corpuscular HGB Conc 33.3 g/dL (29.9-35.2); Mean Corpuscular Hemoglobin 30.4 pg (26.7-34.0); Mean Corpuscular Volume 91.3 fL (81.0-99.0); Mean Platelet Volume 11.5 fL (9.5-13.5); Monocytes Absolute Auto 1.1 10^3/uL (0.3-0.8); Monocytes Percent Auto 9.2 % (1.7-12.0); Neutrophils Absolute Auto 8.9 10^3/uL (1.4-6.5); Neutrophils Percent Auto 76.8 % (43.0-75.0); Platelet Count 196 10^3/uL (150-450); Red Blood Count 3.58 10^6/uL (4.20-5.40); Red Cell Distribution Width 13.2 % (11.0-15.0); White Blood Count 11.6 10^3/uL (4.0-11.0)
--- NOTE | 2024-01-07 21:25 | XR_ITS ---
The [address] [address] Patient Name: MARIAN LADD MRN: [id number] date: 1940 Sex: F Assigned Patient Location: ER Current Patient Location: ED.MAIN Accession/Order Number: [id number] Exam Date: 01/07/2024 21:40 Report Date: 01/07/2024 22:14 At the request of: JOSI RODRIGUEZ Procedure: XR ankle RT 2V EXAM: XR ankle RT 2V HISTORY: s/p reduction COMPARISON: 01/07/2024 FINDINGS/IMPRESSION: 1. Oblique minimally displaced fracture of the distal fibula. 2. Transverse fracture of the medial malleolus with mild displacement. 3. Minimally displaced fracture of the posterior malleolus. 4. Improved alignment of the ankle as compared to the prior examination. 5. Mild to moderate degeneration at the tarsometatarsal joints. 6. Calcaneal Achilles enthesophyte. 7. Overlying splint material obscures fine bony detail. 8. Subcutaneous soft tissue edema about the ankle. Electronically authenticated by: SKINNY GUTIÉRREZ Date: 01/07/2024 22:14
[2024-01-07 21:36] LABS: Alanine Aminotransferase 16 U/L (14-59); Albumin Globulin Ratio 1.1; Albumin Level 3.4 g/dL (3.4-5.0); Alkaline Phosphatase 91 U/L (46-116); Anion Gap 10.4; Aspartate Amino Transferase 11 U/L (15-37); BUN Creatinine Ratio 23.8; Bilirubin Total 0.5 mg/dL (0.2-1.0); Calcium 9.5 mg/dL (8.5-10.1); Carbon Dioxide 29.4 mmol/L (21.0-32.0); Chloride 97 mmol/L (98-107); Estimated GFR (African America 47 (>=60); Estimated GFR (Non-African Ame 39 (>=60); Globulin 3.2 g/dL; Glucose 113 mg/dL (74-106); Potassium 3.8 mmol/L (3.5-5.1); Sodium 133 mmol/L (136-145); Total Protein 6.6 g/dL (6.4-8.2)
[2024-01-07 21:38] LABS: Troponin I High Sensitivity 11.7 pg/mL (4.0-51.3)
[2024-01-07] MEDS: MIDAZOLAM HCL 2 MG/2 ML VIAL 4 MG IV (21:38)
--- OUTSIDE RECORDS SUMMARY | 2024-01-07 22:40 | XMS_ITS | CCD ---
Author Organization [facility] Care Team Providers Care Fountain Helper Name Role Phone Alisha eBrgman Unavailable Arabella Maria Attending Unavailable Arabella Maria [...] influenza virus vaccine, inactivated 03/02/2023 Recorded Normal [facility] Comment on above: Result Comment: Elec tronically [...] of clutter to prevent tripping and/or falling. [place] Advance Directives reviewed. Documents remain at home, [...] been scheduled, 12/15/2024 Patient agrees to a [facility] referral. Information handout provided to [...] Pressure and Older Adults from the [employer] [place] [employer] provided. Will continue to f/u [...] reports of fractures. (more content not included)... [facility] Comment on above: Result Comment: Elec tronically Signed By: Arabella Mesa\.br\Date and Time Signed: 12/14/23 12:54 EDT\.br\Electronically Co-Signed By: Blanca Rosas\.br\Date and Time Co-Signed: 12/14/23 11:13 EDT Dexa Scanson 07-05-2023 Dexa Scans [id number] 20 [id number] 0TIFF [facility] Dexa Scans [id number] 20 [id number] 0TIFF [facility] Transfer Inon 06-21-2023 Transfer In [id number] 10 [id number] 0TIFF [facility] Ambulatory Visit Summaryon 0 06-19-2023 Ambulatory Visit [...] you for choosing us for your care. [facility] Auth for Release of Medical Recordson 06-19-2023 Auth for Release of Medical Records [id number] 0TIFF Normal [facility] Family Medicine Office/Clini c Noteon 06-19-2023 Family Medicine Office/Clinic Note HPI Staff Marian is a 82 year old female presenting to 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 History of Present Illness pt presents today for annual wellness visit. needs refills on all meds. labs done at [facility] in March. Review of Systems PHQ [...] release of info for previous PCP in [place]. Dexa scan ordered to be done at [facility]. RTC 6 months 2. Hypertension (I10: [...] Daily, # 90 tab(s), Refills(s) 3, Pharmacy: [id number], 169.3, cm, 06/19/23 13:14:00 EST, Height/Length Dosing, 81.1, kg, 06/19/23 13:14:00 EST, Weight Dosing furosemide, 20 mg = 1 tab(s), Oral, Daily, # 90 tab(s), Refills(s) 3, Pharmacy: [id number], 169.3, cm, 06/19/23 13:14:00 EST, Height/Length Dosing, 81.1, kg, 06/19/23 13:14:00 EST, Weight Dosing hydrochlorothiazide-li sinopril, 1 tab(s), Oral, Daily, 90 tab(s), Refill(s) 3, Oral, 0 Refill(s), [id number], 169.3, cm, 06/19/23 13:14:00 EST, Height/Length Dosing, 81.1, kg, 06/19/23 13:14:00 EST, Weight Dosing omeprazole, 20 mg = 1 cap(s), Oral, Daily, # 90 cap(s), Refills(s) 3, [id number] 169.3, cm, 06/19/23 13:14:00 EST, Height/Length Dosing, 81.1, kg, 06/19/23 13:14:00 EST, Weight Dosing potassium chloride, 20 mEq = 1 tab(s), Oral, Daily, # 90 tab(s), Refills(s) 3, [id number], 169.3, cm, 06/19/23 13:14:00 EST, Height/Length Dosing, 81.1, kg, 06/19/23 13:14:00 EST, Weight Dosing verapamil, 240 mg = 1 tab(s), Oral, q12hr, # 180 tab(s), Refills(s) 3, [id number], 169.3, cm, 06/19/23 13:14:00 EST, Height/Length [...] influenza virus vaccine, inactivated 03/02/2023 Recorded Normal [facility] Comment on above: Result Comment: Elec tronically Signed By: Arabella Mesa.br\Date and Time Signed: 06/19/23 14:21 EST Lab Reportson 06-19-2023 Lab Reports [id number] TIFF Normal [facility] Physician Orderon 06-19-2023 Physician Order [id number] TIFF [facility] Vital Signs Date Time Vital Sign Value Performing Clinician Facility 04-04-2023 10:15-0500 Body height 168.91 cm Alisha Bergman Other [facility] Other 04-04-2023 10:15-0500 Body mass index (BMI) [Ratio] 28.12 kg/m2 Alisha Bergman Other [facility] Other 04-04-2023 10:15-0500 Body weight 80.24 kg Alisha Bergman Other [facility] Other 04-04-2023 10:15-0500 Diastolic blood pressure 68 mm[Hg] Alisha Bergman Other [facility] Other 04-04-2023 10:15-0500 Respiratory rate 18 /min Alisha Bergman Other [facility] Other 04-04-2023 10:15-0500 SaO2% (BldA) [Mass fraction] 98 % Alisha Bergman Other [facility] Other 04-04-2023 10:150500 Systolic blood pressure 130 mm[Hg] lAisha Bergman Other [facility] Other Encounters Encounter Date Encounter Type Care Provider Facility Start: 12-15-2024 ambulatory Arabella L Candace Facility: [facility] Start: 04-22-2024 ambulatory Arabella L Candace Facility: [facility] Start: 12-26-2023 End: 12-26-2023 ambulatory Arabella L Candace Facility:[facility] Start: 12-13-2023 End: 12-13-2023 ambulatory Arabella L Candace Facility:[facility] Start: 06-25-2023 End: 06-25-2023 ambulatory Alisha Bergman Other [facility] Other Start: 06-25-2023 Telephone encounter Alisha Bergman [facility] Start: 06-19-2023 ambulatory Arabella Candace Facility:[facility] Start: 06-19-2023 End: 06-19-2023 ambulatory Arabella L Candace Facility:[facility] Start: 06-15-2023 End: 06-15-2023 ambulatory Alisha Bergman Other [facility] Other Start: 06-15-2023 Telephone encounter Alisha Bergman [facility] Start: 04-04-2023 End: 04-04-2023 ambulatory Alisha Bergman Other [facility] Other Start: 04-04-2023 Office outpatient vi sit 25 minutes Alisha Bergman [facility] Start: 02-09-2023 End: 02-09-2023 ambulatory Alisha Bergman Other [facility] Other Start: 02-09-2023 Telephone encounter Alisha Bergman [facility] [place] Immunizations Immunization Date Immunization Notes Care Provider Nancy delgado 04-04-2023 Prevnar 20 Alisha Bergman Other [facility] Other 02-25-2022 influenza, seasonal, injectable Alisha Bergman Other [facility] Other Payers Date Payer Category Payer Unknown [id number] 1940 Unknown [id number] 2.16.8 [id number] 1940 Unknown [id number] 2.16.8 [id number] 1938 Unknown [id number] 2.16.8 [id number] 1938 Unknown [id number] 2.16.8 [id number] 1940 Unknown [id number] 2.16.8 [id number] Medicare [id number] 2.1 [id number] Medicare [id number] 2.1 [id number] Medicare [id number] 2.1 [id number] Social History Date Type Detail Facility Sex Assigned At [facility] Other Clinical Note 12-13-2023 Note Date & [...] if: ? Yo (more content not included)... [facility] Evaluation note 04-04-2023 Note Date & Type [...] continue Mar, Immunization due (ICD-10 - Z23) [facility] Other Evaluation note Note Date & Type Note Facility Evaluation note No Information [employer] Other History general Narrative - Reported Note Date & Type Note Facility History general Narrative - Reported Type Medical History HTN Surgical History twisted colon sx 2014 Surgical History tonsillectomy Hospitalization History see above Hospitalization History child [facility] Other Reason for Referral Reason right hip pain Diagnosis 1 Right hip pain (M25. 551) Referral Organization [facility] Referring Provider First Name Alisha Referring Provider Last Name [facility] Referring Provider Specialty Family Medi cine Referred Organization Unknown Facility Referred Provider Specialty Chiropractic Referral Priority Routine Summary Purpose Family History No Family History Records Found Advance Directives No Advanced Directives Records Found Additional Source Comments REASON FOR VISIT (unrecogniz ed section and content) refills3 month Follow uplett erletter INFORMATION SOURCE (unrecogn ized section and content) DATE CREATED AUTHOR 12/27/2023 [facility] FOR RECORDS PERTAINING TO PATIENTS WHO ARE [...] BE BASED ON THE PRIMARY CLINICAL RECORDS. [facility]. provides no warranty or guarantee of the accuracy or completeness of information in this document.
[2024-01-08] VITALS (21 sets, daily range): BP systolic 128–145; BP diastolic 60–89; PULSE 62–83; TEMP 36.5–37.1; O2SAT 84–93
[2024-01-08] MEDS: 0.9 % SODIUM CHLORIDE 1,000 ML 125 ML IV ×3 (04:53→21:26)
[2024-01-08 05:50] LABS: Basophils Percent Auto 0.5 % (0.2-2.0); Eosinophils Absolute Auto 0.4 10^3/uL (0.0-0.7); Eosinophils Percent Auto 4.1 % (0.9-7.0); Hematocrit 29.6 % (36.0-48.0); Hemoglobin 9.7 g/dL (12.0-16.0); Immature Granulocytes Abs Auto 0.05 10^3/uL (0.00-0.03); Immature Granulocytes Pct Auto 0.6 % (0.0-0.5); Lymphocytes Absolute Auto 1.4 10^3/uL (1.2-3.8); Lymphocytes Percent Auto 16.1 % (20.5-60.0); Mean Corpuscular HGB Conc 32.8 g/dL (29.9-35.2); Mean Corpuscular Hemoglobin 30.1 pg (26.7-34.0); Mean Corpuscular Volume 91.9 fL (81.0-99.0); Mean Platelet Volume 11.2 fL (9.5-13.5); Monocytes Absolute Auto 1.1 10^3/uL (0.3-0.8); Monocytes Percent Auto 12.3 % (1.7-12.0); Neutrophils Absolute Auto 5.8 10^3/uL (1.4-6.5); Neutrophils Percent Auto 66.4 % (43.0-75.0); Platelet Count 174 10^3/uL (150-450); Red Blood Count 3.22 10^6/uL (4.20-5.40); Red Cell Distribution Width 13.2 % (11.0-15.0); White Blood Count 8.7 10^3/uL (4.0-11.0)
[2024-01-08 06:02] LABS: Alanine Aminotransferase 15 U/L (14-59); Albumin Level 2.8 g/dL (3.4-5.0); Alkaline Phosphatase 62 U/L (46-116); Anion Gap 8.7; Aspartate Amino Transferase 12 U/L (15-37); BUN Creatinine Ratio 21.1; Bilirubin Total 0.4 mg/dL (0.2-1.0); Calcium 8.6 mg/dL (8.5-10.1); Carbon Dioxide 28.9 mmol/L (21.0-32.0); Chloride 100 mmol/L (98-107); Estimated GFR (African America 55 (>=60); Estimated GFR (Non-African Ame 45 (>=60); Globulin 2.8 g/dL; Glucose 78 mg/dL (74-106); Magnesium 1.3 mg/dL (1.8-2.4); Potassium 3.6 mmol/L (3.5-5.1); Sodium 134 mmol/L (136-145); Total Protein 5.6 g/dL (6.4-8.2)
[2024-01-08 06:36] LABS: Partial Thromboplastin Time 25.6 sec (22.3-36.2)
--- NOTE | 2024-01-08 08:15 | CM.NOTE ---
Rounds made with Dr. Roy, consult to Dr. Deleon today for surgical intervention. Pt c/o weakness over the last month and has not been able to climb stairs, she was seeing primary care physician for weakness. PT and OT will evaluate pt for recommendations.
--- NOTE | 2024-01-08 08:42 | P.HP_ITS ---
HPI H&P: HPI History of Present Illness Chief complaint: RLE Bimalleolar Fx Narrative: Patient admitted after tripping and falling with a lightheaded spell. She has not had any prodromal symptoms with lightheaded spells. Twisted her ankle. Unable to bear weight presented to the emergency room found to have 5 malleolar fracture right leg patient mated for workup and treatment of same When I saw patient up on the medical surgical floor, she was resting comfortably in bed. Does have pain in the lower extremity secondary to the fracture. Denies chest pain denies shortness of breath denies any cold symptoms denies gastroenteritis symptoms Opioid HPI Opioid Management Most Recent Pain and Opioid Data: Last Pain Assessment 01/08/24 08:20 Last ORT Total Score 0 01/07/24 22:52 Last ORT Risk Category Low Risk 01/07/24 22:52 Review of Systems ROS Status of ROS 10 or more systems reviewed and unremark able except as noted in history and below PFSH PFSH Medical History Hypertension ?I10 - Essential (primary) hypertension (ICD-10) Surgical History (Updated 01/07/24 @ 23:05 by Jaylene Monahan RN) History of cataract surgery ?Z98.49 - Cataract extraction status, unspecified eye (ICD-10) History of colon surgery ?Z98.890 - Other specified postprocedural states (ICD-10) Family History (Updated 01/07/24 @ 23:06 by Jaylene Monahan RN) Father Family history of cancer Mother Family history of cancer Social History (Updated 01/07/24 @ 23:08 by Jaylene Monahan RN) Within the past year, how often did you have a drink containing alcohol: monthly or less Within the past year, how many standard drinks containing alcohol did you have on a typical day: 1 or 2 Within the past year, how often did you have six or more drinks on one occasion: never Total score: 0 Score interpretation: A score less than 3 is consistent with normal alcohol consumption. 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 Highest level of school completed/degree received: high school graduate Are you now , , , , never or living with a partner: In a typical week, how many times do you talk on the telephone with family, friends, or neighbors: 3 or more times per week How often do you get together with friends or relatives: 3 or more times per week Little interest or pleasure in doing things: not at all Feeling down, depressed, or hopeless: not at all Feel stressed/tense/nervous/anxious/difficulty sleeping: not at all Do you think of yourself as: straight/heterosexual Gender Identity: female Meds Home Medications and Allergies Home Medications ?Medication ?Instructions ?Recorded ?Confirmed ?Type alendronate 70 mg tablet 70 mg PO .once week 01/07/24 01/07/24 History atorvastatin 10 mg tablet 10 mg PO DAILY 01/07/24 01/07/24 History fluocinonide 0.05 % topical 1 applic topical .twice week PRN 01/07/24 01/08/24 History solution FLARES furosemide 20 mg tablet 20 mg PO DAILY 01/07/24 01/07/24 History lisinopril 20 1 tab PO DAILY 01/07/24 01/07/24 History mg-hydrochlorothiazide 25 mg tablet omeprazole 20 mg capsule,delayed 20 mg PO .Am 01/07/24 01/07/24 History release potassium chloride 20 mEq 20 meq PO DAILY 01/07/24 01/07/24 History tablet,extended release verapamil 240 mg tablet,extended 240 mg PO BID 01/07/24 01/07/24 History release Allergies Allergy/AdvReac Type Severity Reaction Status Date / Time No Known Drug Allergies Allergy Verified 01/07/24 18:42 Exam Constitutional Vital Signs, click to edit/add: Last Vital Signs Temp 97.9 F 01/08/24 08:20 Pulse 75 01/08/24 08:20 Resp 18 01/08/24 08:20 BP 132/60 01/08/24 08:20 Pulse Ox 91 L 01/08/24 08:41 O2 Del Method Room Air 01/08/24 08:41 O2 Flow Rate 3 01/07/24 21:39 Documenting provider has reviewed patient's vital signs: yes Common normals: no apparent distress Chest Common normals: inspection of chest normal Respiratory Common normals: normal respiratory effort and no retractions Cardio Common normals: regular rate and regular rhythm GI Common normals: Normal to inspection, nondistended, normoactive bowel sounds present, soft to palpation, non-tender and no hepatosplenomegaly Extremity Common normals: abnormal to inspection (Brace in place right leg) Results Labs Labs: Short CBC 01/07/24 01/08/24 Range/Units 20:50 05:04 WBC 11.6 H 8.7 (4.0-11.0) 10^3/uL Hgb 10.9 L 9.7 L (12.0-16.0) g/dL Hct 32.7 L 29.6 L (36.0-48.0) % Plt Count 196 174 (150-450) 10^3/uL BMP 01/07/24 01/08/24 20:50 05:04 Sodium 133 L 134 L Potassium 3.8 3.6 Chloride 97 L 100 Carbon Dioxide 29.4 28.9 BUN 31.0 H 24.0 H Creatinine 1.30 H 1.14 H Glucose 113 H 78 Calcium 9.5 8.6 Liver Function 01/07/24 01/08/24 Range/Units 20:50 05:04 Total Bilirubin 0.5 0.4 (0.2-1.0) mg/dL AST 11 L 12 L (15-37) U/L ALT 16 15 (14-59) U/L Alkaline Phosphatase 91 62 (46-116) U/L Albumin 3.4 2.8 L (3.4-5.0) g/dL Assessment and Plan Assessment and Plan (1) Bimalleolar fracture of right ankle: (2) Hypertension: (3) Fall from standing: Plan Admission findings: Patient was a trip and fall with mild lightheaded spell. Bimalleolar fracture right leg. Admitted for surgical intervention Leukocytosis-possible demargination from the fall. Improved today Hypertension-continue with home medications, lightheaded spell possibly related to side effect from medication. Need to watch patient closely, unable to do orthostatic vital secondary to the fracture Hyponatremia-possibly medication induced, improved today. Iron deficiency anemia-monitor daily, likely to deteriorate with fracture. Acute kidney injury-improved today. She was told she has not had of any kidney issues in the past a baseline creatinine of 1 and it was greater than 1.3 on admission. Hypomagnesemia-supplement Need for surgical intervention: With electrolyte disturbances and orthostatic hypotension will hydrate today. From a safety standpoint would be better to have surgery completed tomorrow once patient is more stabilized. Admission status: Patient admitted with fracture, unstable for surgery today secondary to the hyponatremia hypomagnesemia and borderline low blood pressures. Plan is to stabilize today, surgery tomorrow. Medically necessary treatment will span 2 midnights. Inpatient status.
[2024-01-08 08:50] LABS: Bilirubin Urine NEGATIVE (NEGATIVE); Blood Urine NEGATIVE (NEGATIVE); Clarity Urine CLEAR (CLEAR); Color Urine LT. YELLOW (YELLOW); Glucose Urine UA NEGATIVE (NEGATIVE); Ketones Urine NEGATIVE (NEGATIVE); Leukocyte Esterase Urine NEGATIVE (NEGATIVE); Nitrite Urine NEGATIVE (NEGATIVE); Protein Urine NEGATIVE (NEG/TRACE); Urobilinogen Urine 0.2 EU/dL (0.2-1.0)
--- NOTE | 2024-01-08 09:03 | P.CN_ITS ---
Consult Note: [facility] Data of Consult Consult date: 01/08/24 Requesting Physician: Guicho Roy MD Primary Care Provider: Non-Staff Physician, Consult Narrative Reason for consult: right ankle injury Narrative: Patient is a pleasant 83-year-old female who had a ground-level fall yesterday while at home resulting in a right ankle injury. She sustained no other injuries. She was unable to bear weight and had difficulty getting back on her feet therefore she was helped by some neighbors and taken to the emergency department. X-rays demonstrated displaced ankle fracture and she was splinted/reduced and admitted to the hospitalist. Postreduction x-rays were satisfactory and did confirm trimalleolar ankle fracture. Her pain currently is controlled and her splint is comfortable. She has no other complaints. cc:: CC: Guicho Roy MD Review of Systems ROS Status of ROS 10 or more systems reviewed and unremark able except as noted in history and [facility] History Hypertension ?I10 - Essential (primary) hypertension (ICD-10) Surgical History (Updated 01/07/24 @ 23:05 by Jaylene Monahan RN) History of cataract surgery ?Z98.49 - Cataract extraction status, unspecified eye (ICD-10) History of colon surgery ?Z98.890 - Other specified postprocedural states (ICD-10) Family History (Updated 01/07/24 @ 23:06 by Jaylene Monahan RN) Father Family history of cancer Mother Family history of cancer Social History (Updated 01/07/24 @ 23:08 by Jaylene Monahan RN) Within the past year, how often did you have a drink containing alcohol: monthly or less Within the past year, how many standard drinks containing alcohol did you have on a typical day: 1 or 2 Within the past year, how often did you have six or more drinks on one occasion: never Total score: 0 Score interpretation: A score less than 3 is consistent with normal alcohol consumption. 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 Highest level of school completed/degree received: high school graduate Are you now , , , , never or living with a partner: In a typical week, how many times do you talk on the telephone with family, friends, or neighbors: 3 or more times per week How often do you get together with friends or relatives: 3 or more times per week Little interest or pleasure in doing things: not at all Feeling down, depressed, or hopeless: not at all Feel stressed/tense/nervous/anxious/difficulty sleeping: not at all Do you think of yourself as: straight/heterosexual Gender Identity: female Meds Home Medications and Allergies Home Medications ?Medication ?Instructions ?Recorded ?Confirmed ?Type alendronate 70 mg tablet 70 mg PO .once week 01/07/24 01/07/24 History atorvastatin 10 mg tablet 10 mg PO DAILY 01/07/24 01/07/24 History fluocinonide 0.05 % topical 1 applic topical .twice week PRN 01/07/24 01/08/24 History solution FLARES furosemide 20 mg tablet 20 mg PO DAILY 01/07/24 01/07/24 History lisinopril 20 1 tab PO DAILY 01/07/24 01/07/24 History mg-hydrochlorothiazide 25 mg tablet omeprazole 20 mg capsule,delayed 20 mg PO .Am 01/07/24 01/07/24 History release potassium chloride 20 mEq 20 meq PO DAILY 01/07/24 01/07/24 History tablet,extended release verapamil 240 mg tablet,extended 240 mg PO BID 01/07/24 01/07/24 History release Allergies Allergy/AdvReac Type Severity Reaction Status Date / Time No Known Drug Allergies Allergy Verified 01/07/24 18:42 Exam Narrative Exam Narrative: Splint is clean dry and intact and in a good position. She is able to wiggle her toes without pain. Capillary refill is brisk to all the toes. No calf pain on squeeze. Constitutional Vital Signs, click to edit/add: Last Vital Signs Temp 97.9 F 01/08/24 08:20 Pulse 75 01/08/24 08:20 Resp 18 01/08/24 08:20 BP 132/60 01/08/24 08:20 Pulse Ox 91 L 01/08/24 08:41 O2 Del Method Room Air 01/08/24 08:41 O2 Flow Rate 3 01/07/24 21:39 Results Labs Labs: Short CBC 01/07/24 01/08/24 Range/Units 20:50 05:04 WBC 11.6 H 8.7 (4.0-11.0) 10^3/uL Hgb 10.9 L 9.7 L (12.0-16.0) g/dL Hct 32.7 L 29.6 L (36.0-48.0) % Plt Count 196 174 (150-450) 10^3/uL BMP 01/07/24 01/08/24 20:50 05:04 Sodium 133 L 134 L Potassium 3.8 3.6 Chloride 97 L 100 Carbon Dioxide 29.4 28.9 BUN 31.0 H 24.0 H Creatinine 1.30 H 1.14 H Glucose 113 H 78 Calcium 9.5 8.6 Liver Function 01/07/24 01/08/24 Range/Units 20:50 05:04 Total Bilirubin 0.5 0.4 (0.2-1.0) mg/dL AST 11 L 12 L (15-37) U/L ALT 16 15 (14-59) U/L Alkaline Phosphatase 91 62 (46-116) U/L Albumin 3.4 2.8 L (3.4-5.0) g/dL Assessment and Plan Assessment and Plan (1) Hypertension: (2) Fall from standing: (3) Displaced trimalleolar fracture of right ankle: Onset Date: 01/07/24 Assessment and Plan: Prereduction and postreduction films were reviewed which confirms trimalleolar ankle fracture which is inherently unstable. According to the emergency department skin envelope was intact but was not evaluated due to the splint but no skin tenting is noted on the postreduction films. Qualifiers: Encounter type: initial encounter Fracture type: closed Qualified Code(s): S82.851A - Displaced trimalleolar fracture of right lower leg, initial encounter for closed fracture (4) Syndesmotic disruption of right ankle: Qualifiers: Encounter type: initial encounter Qualified Code(s): S93.431A - Sprain of tibiofibular ligament of right ankle, initial encounter Plan Patient seen and evaluated. I discussed the potential risks and benefits of surgical versus nonsurgical treatment and given the fractures inherently u nstable I recommended ORIF. N.p.o. after midnight for surgery at 730 tomorrow The OR was notified Patient will be nonweightbearing for at least 3 weeks. Patient does have a couple stairs leading into her house and does not have adequate support at home therefore she may require longterm facility. Keep splint clean dry and intact. Elevate the right ankle on 2 pillows. Patient should only get out of bed with sufficient help otherwise should remain sedentary as patient is a high fall risk. Dr. Roy was notified of my plan Will follow
[2024-01-08 09:25] LABS: Bacteria Urine TRACE #/HPF (NONE SEEN); Cast Seen? NONE SEEN #/LPF (NONE SEEN); Crystals Seen? None Seen #/HPF (None Seen); Mucus Urine NONE SEEN (NONE SEEN); RBC Urine 0-2 #/HPF (0-2); Squamous Epithelial Cell Urine MODERATE #/LPF (NONE/RARE); Transitional Epi Cells Urine FEW #/LPF (NONE SEEN); WBC Urine 0-2 #/HPF (NONE SEEN)
[2024-01-08 09:26] LABS: Urine Culture Indicated NO
[2024-01-08] MEDS: OMEPRAZOLE 20 MG CAPSULE.DR PO (09:47)
[2024-01-08] MEDS: ATORVASTATIN CALCIUM 10 MG TABLET PO (09:47)
[2024-01-08] MEDS: VERAPAMIL HCL ER 240 MG TABLET PO ×2 (09:47→21:23)
[2024-01-08] MEDS: MAGNESIUM SULFATE IN WATER 4 GM/100 ML PIGGYBACK IV (09:48)
[2024-01-08] MEDS: ENSURE HP 237 ML LIQUID PO ×2 (09:53→21:20)
--- NOTE | 2024-01-08 10:02 | SWNOTE1 ---
DAMIAN saw in Dr. Deleon's note that pt may need SNF after going to OR tomorrow. DAMIAN spoke with Case Management and at this time pt has voiced she wants to return home at discharge. She may be open to at least home health therapy coming in. SW to re-assess tomorrow.
--- NOTE | 2024-01-08 10:16 | CM.NOTE ---
Important Message From Medicare discussed with pt, pt verbalizes understanding and signs paper. Original given to pt and copy placed on pt's chart.
--- NOTE | 2024-01-08 11:17 | SWNOTE1 ---
SW received a call from OT and pt did attempt to be NWB with therapy and was not able to. She is more open to rehab, SW to speak with pt.
--- NOTE | 2024-01-08 11:36 | SWNOTE1 ---
SW spoke with pt and in room in regards to rehab. Pt did voice that therapy did not go well. SW explained to them what rehab would be. SW provided them with list from Medicare.gov with star ratings. Pt does live in [place] and would like to stay local. SW did show them that both facilities in [place] do have 5/5 star rating. Initially they were leaning towards [facility] since it is by the hospital. SW offered to provide them with pamphlets to look over from both facilities. Pt and would like that. SW did explain to pt and that pt is a precert and that it would be beneficial for SW to start precert today. Pt and voiced understanding. SW provided pt and with pamphlets and will check back later today.
--- NOTE | 2024-01-08 13:42 | SWNOTE1 ---
SW stopped back in and spoke with as he still had questions. SW reviewed everything with pt and again. He did ask for the address to [facility]. DAMIAN provided address and spoke with Helena at [facility] to see if can visit. Helena will be there and give him a tour. Pt's went to visit [facility]. SW spoke to and he felt facility was clean and was happy with his conversation with Helena. Pt and would like for pt to go to [facility] for rehab.
[2024-01-08] MEDS: CEFTRIAXONE 1,000 MG in 0.9 % SODIUM CHLORIDE 50 ML 100 MG IV (13:56)
[2024-01-08] MEDS: PHENAZOPYRIDINE 100 MG TABLET PO ×2 (13:56→21:21)
[2024-01-09] VITALS (32 sets, daily range): BP systolic 85–121; BP diastolic 48–72; PULSE 62–78; TEMP 36.6–37.4; O2SAT 89–96
--- NOTE | 2024-01-09 01:24 | PC.NURSE ---
0120- When rounding on pt, pt told nurse her iv pump was saying lower elwha, lower elwha, and then he as she referred to the pump switched to saying something else but she did not specify. Nurse assured pt the pump was not talking to her.
[2024-01-09 06:10] LABS: Basophils Absolute Auto 0.1 10^3/uL (0.0-0.1); Basophils Percent Auto 0.5 % (0.2-2.0); Eosinophils Absolute Auto 0.3 10^3/uL (0.0-0.7); Eosinophils Percent Auto 2.5 % (0.9-7.0); Hematocrit 34.7 % (36.0-48.0); Hemoglobin 10.8 g/dL (12.0-16.0); Immature Granulocytes Abs Auto 0.05 10^3/uL (0.00-0.03); Immature Granulocytes Pct Auto 0.5 % (0.0-0.5); Lymphocytes Percent Auto 9.2 % (20.5-60.0); Mean Corpuscular HGB Conc 31.1 g/dL (29.9-35.2); Mean Corpuscular Hemoglobin 30.1 pg (26.7-34.0); Mean Corpuscular Volume 96.7 fL (81.0-99.0); Mean Platelet Volume 10.6 fL (9.5-13.5); Monocytes Absolute Auto 1.4 10^3/uL (0.3-0.8); Monocytes Percent Auto 12.8 % (1.7-12.0); Neutrophils Absolute Auto 8.2 10^3/uL (1.4-6.5); Neutrophils Percent Auto 74.5 % (43.0-75.0); Platelet Count 165 10^3/uL (150-450); Red Blood Count 3.59 10^6/uL (4.20-5.40); Red Cell Distribution Width 13.3 % (11.0-15.0); White Blood Count 11.1 10^3/uL (4.0-11.0)
[2024-01-09] MEDS: LACTATED RINGER'S SOLUTION 1,000 ML 50 ML IV (06:17)
[2024-01-09 06:33] LABS: Alanine Aminotransferase 16 U/L (14-59); Albumin Globulin Ratio 0.9; Albumin Level 2.9 g/dL (3.4-5.0); Alkaline Phosphatase 65 U/L (46-116); Anion Gap 10.4; Aspartate Amino Transferase 16 U/L (15-37); BUN Creatinine Ratio 12.2; Bilirubin Total 0.6 mg/dL (0.2-1.0); Calcium 8.6 mg/dL (8.5-10.1); Chloride 101 mmol/L (98-107); Estimated GFR (African America >60 (>=60); Estimated GFR (Non-African Ame 60 (>=60); Globulin 3.4 g/dL; Glucose 105 mg/dL (74-106); Magnesium 2.2 mg/dL (1.8-2.4); Potassium 3.4 mmol/L (3.5-5.1); Sodium 134 mmol/L (136-145); Total Protein 6.3 g/dL (6.4-8.2)
--- NOTE | 2024-01-09 07:38 | PC.NURSE ---
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
--- NOTE | 2024-01-09 07:48 | P.ORON_ITS ---
Brief Operative Note Date of procedure: 01/09/24 Pre-op diagnosis general: Right trimalleolar ankle fracture with possible synd esmotic disruption Post-op diagnosis: other (Right trimalleolar ankle fracture) Procedure: Procedure performed: Open reduction and internal fixation of right medial and lateral malleolus, stress examination under intraoperative fluoroscopy and application of multilayer layer modified Vargas splint Indications for procedure: See consultation note for details but in short patient presents after ground-level fall while at home which resulted in a displaced trimalleolar ankle fracture. Intraoperative findings: Displaced oblique Morales B fibular fracture and displaced medial malleolus fracture. Syndesmotic ligaments stable. Bone quality was poor and consistent with osteoporosis Procedure in detail: Patient was identified in preop holding by myself which time correct side and site were marked and consent was obtained. Regional anesthesia was performed by the anesthesia team and preoperative antibiotics were started. Patient was brought back to the operating theater placed on table in the supine position. General anesthesia was administered. Thigh tourniquet was placed. Right lower extremity was prepped and draped in usual sterile fashion and formal timeout was performed. Right lower extremity was exsanguinated and tourniquet was inflated. Fibula: A longitudinal incision placed over the fibular malleolus was [place]. Combination of sharp and blunt dissection gained access to the fibular fracture in all bleeders were coagulated. Hematoma was evacuated. Any periosteum or fibrous tissue was removed from the fracture line and the fracture surfaces were lightly curetted. Then utilizing manual reduction techniques and reduction clamps the fibula and mortise were then reduced and pinned in place with K wires temporarily. 3.5 mm cortical lag screw was placed across the fracture line and compression was noted. A locking 3.5 mm fibular plate was placed over the fibula which was held in place temporarily. Then locking and nonlocking screws were placed according to the general pediatrician's standard directions. Stability across the fracture was noted and all temporary fixation was removed. The site was irrigated Medial malleolus: Incision was placed over the medial malleolus and all bleeders were coagulated. Sharp and blunt dissection gained access to the fracture. Hematoma was evacuated then the fracture was pinned with a guidewire and position checked on fluoroscopy. A 4.0 mm cannulated screw with a washer was placed according to the general pediatrician's standard directions with compression noted across the fracture line. Temporary fixation was removed and surgical site was irrigated. Syndesmosis: Under live fluoroscopy the syndesmosis was stressed and noted to be stable. All surgical sites were irrigated with copious sterile saline and incisions were closed in layers. The tourniquet was deflated with a prompt hyperemic response. A dry sterile dressing and multilayer posterior splint was applied with the foot and ankle held in neutral position Postoperative plan: Transfer to medical surgical unit Nonweightbearing right ankle Physical therapy consulted for gait training Social work consulted for discharge planning as patient may require detention because patient should be considered a high fall risk Patient currently on Rocephin so no additional perioperative antibiotics were ordered DVT prophylaxis and pain medicine were ordered Will follow Implants: Medline plates/screws Anesthesia: regional and General-LMA Surgeon: Lawson Deleon Estimated blood loss (mL): 25 Pathology: none sent Condition: stable Disposition: PACU
[2024-01-09] MEDS: CEFAZOLIN SODIUM/DEXTROSE,ISO 2 GM/50 ML PIGGYBACK IV (08:15)
--- NOTE | 2024-01-09 09:05 | P.PN_ITS ---
Progress Note: Subjective Subjective Interval history: Patient is sleepy postoperatively Exam Constitutional Vital Signs, click to edit/add: Last Vital Signs Temp 98.9 F 01/09/24 03:42 Pulse 73 01/09/24 06:00 Resp 18 01/09/24 03:42 BP 121/66 01/09/24 03:42 Pulse Ox 91 L 01/09/24 03:42 O2 Del Method Room Air 01/09/24 03:42 O2 Flow Rate 3 01/07/24 21:39 Documenting provider has reviewed patient's vital signs: yes Common normals: no apparent distress Chest Common normals: inspection of chest normal Respiratory Common normals: normal respiratory effort and no retractions Cardio Common normals: regular rate and regular rhythm GI Common normals: Normal to inspection, nondistended, normoactive bowel sounds present, soft to palpation, non-tender and no hepatosplenomegaly Extremity Common normals: abnormal to inspection (Brace in place right leg) Progress Note: Objective Labs Labs: Short CBC 01/09/24 Range/Units 05:49 WBC 11.1 H (4.0-11.0) 10^3/uL Hgb 10.8 L (12.0-16.0) g/dL Hct 34.7 L (36.0-48.0) % Plt Count 165 (150-450) 10^3/uL BMP 01/09/24 05:49 Sodium 134 L Potassium 3.4 L Chloride 101 Carbon Dioxide 26.0 BUN 11.0 Creatinine 0.90 Glucose 105 Calcium 8.6 Liver Function 01/09/24 Range/Units 05:49 Total Bilirubin 0.6 (0.2-1.0) mg/dL AST 16 (15-37) U/L ALT 16 (14-59) U/L Alkaline Phosphatase 65 (46-116) U/L Albumin 2.9 L (3.4-5.0) g/dL Urine 01/08/24 Range/Units 08:30 Urine Color Lt. yellow (YELLOW) Urine Clarity Clear (CLEAR) Urine pH 6.0 (5.0-9.0) Ur Specific [place] 1.020 (1.005-1.025) Urine Protein Negative (NEG/TRACE) mg/dL Urine Glucose (UA) Negative (NEGATIVE) mg/dL Progress Note: A&P Assessment and Plan (1) Hypertension: (2) Fall from standing: (3) Displaced trimalleolar fracture of right ankle: Onset Date: 01/07/24 Qualifiers: Encounter type: initial encounter Fracture type: closed Qualified Code(s): S82.851A - Displaced trimalleolar fracture of right lower leg, initial encounter for closed fracture (4) Syndesmotic disruption of right ankle: Qualifiers: Encounter type: initial encounter Qualified Code(s): S93.431A - Sprain of tibiofibular ligament of right ankle, initial encounter Plan Admission findings: Patient was a trip and fall with mild lightheaded spell. Bimalleolar fracture right leg. Admitted for surgical intervention Leukocytosis-resolved Hypertension-continue with home medications, lightheaded spell possibly related to side effect from medication. Need to watch patient closely, unable to do orthostatic vital secondary to the fracture Hyponatremia-possibly medication induced, improved today. Iron deficiency anemia-better today. Acute kidney injury-improved today. She was told she has not had of any kidney issues in the past a baseline creatinine of 1 and it was greater than 1.3 on admission. Hypomagnesemia-supplement Need for surgical intervention: With electrolyte disturbances and orthostatic hypotension will hydrate today. From a safety standpoint would be better to have surgery completed tomorrow once patient is more stabilized. Admission status: Patient admitted with fracture, unstable for surgery today secondary to the hyponatremia hypomagnesemia and borderline low blood pressures. Plan is to stabilize today, surgery tomorrow. Medically necessary treatment will span 2 midnights. Inpatient status. Evaluation by PT and OT for possible SNF placement. ? Urinary Catheter Management Urinary Catheter Management Urethral: Cath placed during this visit: yes Urethral indwelling: Yes Reason for continuing: acute urinary retention Insertion date: 01/09/24 Insertion time: 08:17
--- NOTE | 2024-01-09 09:10 | FL_ITS ---
[address] [address] Patient Name: MARIAN LADD MRN: [id number] date: 1940 Sex: F Assigned Patient Location: MS Current Patient Location: Accession/Order Number: [id number] Exam Date: 01/09/2024 07:30 Report Date: 01/11/2024 11:57 At the request of: CRYSTAL URIBE Procedure: FL fluoroscopy <1hr NON-READ EXAM: FL fluoroscopy <1hr NON-READ HISTORY: TECHNIQUE: FINDINGS: Please see Operative Report. Electronically authenticated by: RADIOLOGIST NO Date: 01/11/2024 11:57
[2024-01-09 10:17] LABS: Glucometer 132 mg/dL (74-106)
--- NOTE | 2024-01-09 10:17 | XR_ITS ---
The [address] [address] Patient Name: MARIAN LADD MRN: [id number] date: 1940 Sex: F Assigned Patient Location: MS Current Patient Location: MS Accession/Order Number: [id number] Exam Date: 01/09/2024 10:10 Report Date: 01/09/2024 13:34 At the request of: CRYSTAL URIBE Procedure: XR ankle RT min 3V Exam: Radiographs: XR ankle RT min 3V Reason for exam: trimalleolar ankle fracture Comparison: Plain films dated 01/06/2014 XR/XR ankle RT min 3V IMPRESSION: New plate and screw internal fixation of the distal right fibula metaphysis fracture. Internal screw fixation of the distal tibial medial malleolus fracture. Reduction of the prior subluxation. Surrounding soft tissue swelling in the ankle. Overlying cast. Mild tibiotalar joint degenerative change. Remainder of the right ankle radiographs is unremarkable. Electronically authenticated by: WILLY PATINO Date: 01/09/2024 13:34
--- NOTE | 2024-01-09 10:51 | SWNOTE1 ---
Precert was started yesterday for [place]. DAMIAN to send updates today.
[2024-01-09] MEDS: ENSURE HP 237 ML LIQUID PO ×2 (10:55→21:11)
[2024-01-09] MEDS: POTASSIUM CHLORIDE 10 MEQ ER TABLET 20 MEQ PO ×2 (10:55→21:10)
[2024-01-09] MEDS: ATORVASTATIN CALCIUM 10 MG TABLET PO (10:55)
[2024-01-09] MEDS: VERAPAMIL HCL ER 240 MG TABLET PO ×2 (10:55→21:11)
--- NOTE | 2024-01-09 13:10 | SWNOTE1 ---
SW did receive fax from pt's insurance and pt is approved to go to [facility]. SW reached out to Helena at [facility] to see if they have a bed open today and SW reached out to doctor to see if she is stable for discharge.
--- NOTE | 2024-01-09 13:25 | SWNOTE1 ---
SW heard back from the doctor and no discharge today, will likely be medically stable tomorrow. DAMIAN let [facility] know and waiting for confirmation that they will have bed tomorrow.
[2024-01-09] MEDS: PHENAZOPYRIDINE 100 MG TABLET PO ×2 (13:39→21:10)
[2024-01-09] MEDS: CEFTRIAXONE 1,000 MG in 0.9 % SODIUM CHLORIDE 50 ML 100 MG IV (13:41)
[2024-01-10] VITALS (13 sets, daily range): BP systolic 101–142; BP diastolic 58–64; PULSE 67–84; TEMP 36.6–36.9; O2SAT 85–91
[2024-01-10] MEDS: OMEPRAZOLE 20 MG CAPSULE.DR PO (05:32)
[2024-01-10] MEDS: PHENAZOPYRIDINE 100 MG TABLET PO (05:32)
[2024-01-10 07:30] LABS: Basophils Percent Auto 0.1 % (0.2-2.0); Hematocrit 30.6 % (36.0-48.0); Immature Granulocytes Abs Auto 0.17 10^3/uL (0.00-0.03); Lymphocytes Percent Auto 5.5 % (20.5-60.0); Mean Corpuscular HGB Conc 32.7 g/dL (29.9-35.2); Mean Corpuscular Hemoglobin 30.4 pg (26.7-34.0); Mean Platelet Volume 12.1 fL (9.5-13.5); Monocytes Absolute Auto 1.5 10^3/uL (0.3-0.8); Monocytes Percent Auto 8.5 % (1.7-12.0); Neutrophils Percent Auto 84.9 % (43.0-75.0); Platelet Count 181 10^3/uL (150-450); Red Blood Count 3.29 10^6/uL (4.20-5.40); Red Cell Distribution Width 13.2 % (11.0-15.0); White Blood Count 17.6 10^3/uL (4.0-11.0)
[2024-01-10 07:42] LABS: Alanine Aminotransferase 16 U/L (14-59); Albumin Globulin Ratio 0.7; Albumin Level 2.6 g/dL (3.4-5.0); Alkaline Phosphatase 66 U/L (46-116); Anion Gap 11.5; Aspartate Amino Transferase 14 U/L (15-37); BUN Creatinine Ratio 18.2; Bilirubin Total 0.3 mg/dL (0.2-1.0); Calcium 8.6 mg/dL (8.5-10.1); Carbon Dioxide 25.9 mmol/L (21.0-32.0); Chloride 102 mmol/L (98-107); Estimated GFR (African America 57 (>=60); Estimated GFR (Non-African Ame 47 (>=60); Globulin 3.5 g/dL; Glucose 197 mg/dL (74-106); Potassium 4.4 mmol/L (3.5-5.1); Sodium 135 mmol/L (136-145); Total Protein 6.1 g/dL (6.4-8.2)
[2024-01-10] MEDS: ATORVASTATIN CALCIUM 10 MG TABLET PO (08:33)
[2024-01-10] MEDS: POTASSIUM CHLORIDE 10 MEQ ER TABLET 20 MEQ PO (08:33)
[2024-01-10] MEDS: ENSURE HP 237 ML LIQUID PO (08:33)
[2024-01-10] MEDS: VERAPAMIL HCL ER 240 MG TABLET PO (08:33)
[2024-01-10] MEDS: ENOXAPARIN SODIUM 40 MG/0.4 ML SYRINGE SUBQ (08:33)
--- NOTE | 2024-01-10 09:27 | CM.NOTE ---
Rounds made with Dr. Roy, pt will discharge to [facility] today for skilled therapy.
--- NOTE | 2024-01-10 09:36 | P.DS_ITS ---
DS: Providers Provider Date of admission: 01/07/24 22:33 Primary care physician: Non-Staff Physician, Consults: 01/08/24 08:50 Consult to Podiatry Routine Consulting Provider: Lawson Deleon Reason for consultation: bimaleolar fx Occupational Therapy Eval and Treat Routine Reason for consultation: fx Has provider been notified: No Physical Therapy Eval and Treat Routine Reason for consultation: fx Has provider been notified: No 01/09/24 07:58 Physical Therapy Eval and Treat Routine Reason for consultation: gait training s/p ORIF ankle on 01/08 Has provider been notified: No 01/09/24 07:59 Consult to Hat Binder Routine Has provider been notified: No Reason for consult:: Alf 01/09/24 09:01 Consult to [facility] B[facility] Routine Reason for consult:: Alf Occupational Therapy Eval and Treat Routine Reason for consultation: eval for rehab Physical Therapy Eval and Treat Routine Reason for consultation: eval for rehab Has provider been notified: No DS: Diagnosis Discharge Diagnosis (1) Hypertension: (2) Fall from standing: (3) Displaced trimalleolar fracture of right ankle: Onset Date: 01/07/24 Qualifiers: Encounter type: initial encounter Fracture type: closed Qualified Code(s): S82.851A - Displaced trimalleolar fracture of right lower leg, initial encounter for closed fracture (4) Syndesmotic disruption of right ankle: Qualifiers: Encounter type: initial encounter Qualified Code(s): S93.431A - Sprain of tibiofibular ligament of right ankle, initial encounter Plan Admission findings: Patient was a trip and fall with mild lightheaded spell. Bimalleolar fracture right leg. Admitted for surgical intervention Leukocytosis-resolved Hypertension-continue with home medications, lightheaded spell possibly related to side effect from medication. Need to watch patient closely, unable to do orthostatic vital secondary to the fracture Hyponatremia-possibly medication induced, improved today. Iron deficiency anemia-better today. Acute kidney injury-improved today. She was told she has not had of any kidney issues in the past a baseline creatinine of 1 and it was greater than 1.3 on admission. Hypomagnesemia-supplement Need for surgical intervention: With electrolyte disturbances and orthostatic hypotension will hydrate today. From a safety standpoint would be better to have surgery completed tomorrow once patient is more stabilized. Admission status: Patient admitted with fracture, unstable for surgery today secondary to the hyponatremia hypomagnesemia and borderline low blood pressures. Plan is to stabilize today, surgery tomorrow. Medically necessary treatment will span 2 midnights. Inpatient status. Evaluation by PT and OT for possible SNF placement. DS: Summary Hospital Course Hospital Course: Patient mated after simple fall. No syncope with the fall. At least she denies that. Found to have trimalleolar fracture. She was taken to the operating room yesterday for surgical repair. Very confused in the immediate postoperative p eriod. She is much improved that standpoint today. At this point I think she is an excellent rehabilitation candidate. Her white blood cell count is up still some. And that can be monitored as an outpatient culture pending from urinalysis. Continue with oral antibiotics. Medications see list. Follow-up with PCP at rehab Status at Discharge Overall status at discharge: patient is not back to baseline Time Spent with Patient Time attestation: Total time spent providing and/or coordinating discharge services: Time spent: greater than 30 minutes Exam Constitutional Vital Signs, click to edit/add: Last Vital Signs Temp 98.4 F 01/10/24 08:38 Pulse 75 01/10/24 08:38 Resp 18 01/10/24 08:38 BP 110/64 01/10/24 08:38 Pulse Ox 90 L 01/10/24 08:38 O2 Del Method Nasal Cannula 01/10/24 08:38 O2 Flow Rate 1 01/10/24 08:38 Documenting provider has reviewed patient's vital signs: yes Common normals: no apparent distress (Looks much better than yesterday) Chest Common normals: inspection of chest normal Respiratory Common normals: normal respiratory effort and no retractions Cardio Common normals: regular rate and regular rhythm GI Common normals: Normal to inspection, nondistended, normoactive bowel sounds present, soft to palpation, non-tender and no hepatosplenomegaly Extremity Common normals: abnormal to inspection (Brace in place right leg) DS: Data Data Completed and Pending Labs on day of discharge: Labs from last 24 hours 01/10/24 01/09/24 06:37 10:16 WBC 17.6 H RBC 3.29 L Hgb 10.0 L Hct 30.6 L MCV 93.0 MCH 30.4 MCHC 32.7 RDW 13.2 Plt Count 181 MPV 12.1 Neut % (Auto) 84.9 H Lymph % (Auto) 5.5 L [place] % (Auto) 8.5 Eos % (Auto) 0.0 L Baso % (Auto) 0.1 L Neut # (Auto) 15.0 H Lymph # (Auto) 1.0 L [place] # (Auto) 1.5 H Eos # (Auto) 0.0 Baso # (Auto) 0.0 Abs Immat Gran (auto) 0.17 H Imm/Tot Granulo (auto) 1.0 H Sodium 135 L Potassium 4.4 Chloride 102 Carbon Dioxide 25.9 Anion Gap 11.5 BUN 20.0 H Creatinine 1.10 H Est GFR ( Amer) 57 L Est GFR (Non-Af Amer) 47 L BUN/Creatinine Ratio 18.2 Glucose 197 H Calcium 8.6 Magnesium 2.0 Total Bilirubin 0.3 AST 14 L ALT 16 Alkaline Phosphatase 66 Total Protein 6.1 L Albumin 2.6 L Globulin 3.5 Albumin/Globulin Ratio 0.7 POC Glucose 132 H Discharge Plan Discharge Disposition: er SNF Condition: Good Discharge Medications: New levofloxacin 500 mg tablet 500 mg PO DAILY 5 Days Qty: 5 0RF Continued omeprazole 20 mg capsule,delayed release(DR/EC) 20 mg PO .Am verapamil 240 mg tablet extended release 240 mg PO BID atorvastatin 10 mg tablet 10 mg PO DAILY furosemide 20 mg tablet 20 mg PO DAILY alendronate 70 mg tablet 70 mg PO .once week potassium chloride 20 mEq tablet extended release 20 meq PO DAILY fluocinonide 0.05 % solution 1 applic TOPICAL .twice week PRN (Reason: FLARES) Discontinued lisinopril-hydrochlorothiazide 20-25 mg tablet 1 tab PO DAILY Print Language: German Forms: Portal Instructions
--- NOTE | 2024-01-10 10:30 | SWNOTE1 ---
DAMIAN reached out to Helena at [facility] to let her know pt is ready for dc today. Helena let SW know that there is a resident in the room that pt is going in to and that resident is trying to appeal her discharge. The SW at the [facility] is working on discharging her, but there is a chance the resident will not leave today. If that is the case then pt will not be able to discharge to [facility] today, it would have to be tomorrow. DAMIAN updated pt and in room and nurse. Pt and did have questions about follow up with Dr. Deleon. DAMIAN let them know we will make apt and [facility] should assist with getting her to the apt. They did ask about the dressing on her foot and DAMIAN advised that DAMIAN is not sure, but it is likely the dressing will stay in place until follow up. DAMIAN advised to check with nurses for sure.
--- NOTE | 2024-01-10 11:26 | SWNOTE1 ---
[facility] does have a bed for pt. DAMIAN updated nursing and will work on transport. For safety reasons we are setting up stretcher transport. DAMIAN emailed [facility] the dc med rec and dc summary. DAMIAN completed HENS.
--- NOTE | 2024-01-10 11:36 | P.PN_ITS ---
Progress Note: Subjective Subjective Interval history: Patient seen in bed. Reports that she attempted gait training with physical therapy was only able to use a walker for 2 steps and felt very unsteady and weak. She is very anxious that she will fall. Otherwise her pain is controlled and relates that her nerve block seems to be wearing off Exam Narrative Exam Narrative: Splint is clean dry and intact. She is able to wiggle her toes but light touch sensation to her toes is still altered. No calf pain on squeeze Constitutional Vital Signs, click to edit/add: Last Vital Signs Temp 98.4 F 01/10/24 08:38 Pulse 67 01/10/24 09:56 Resp 18 01/10/24 08:38 BP 110/64 01/10/24 08:38 Pulse Ox 90 L 01/10/24 10:18 O2 Del Method Nasal Cannula 01/10/24 08:38 O2 Flow Rate 1 01/10/24 08:38 Progress Note: Objective Labs Labs: Short CBC 01/10/24 Range/Units 06:37 WBC 17.6 H (4.0-11.0) 10^3/uL Hgb 10.0 L (12.0-16.0) g/dL Hct 30.6 L (36.0-48.0) % Plt Count 181 (150-450) 10^3/uL BMP 01/10/24 06:37 Sodium 135 L Potassium 4.4 Chloride 102 Carbon Dioxide 25.9 BUN 20.0 H Creatinine 1.10 H Glucose 197 H Calcium 8.6 Liver Function 01/10/24 Range/Units 06:37 Total Bilirubin 0.3 (0.2-1.0) mg/dL AST 14 L (15-37) U/L ALT 16 (14-59) U/L Alkaline Phosphatase 66 (46-116) U/L Albumin 2.6 L (3.4-5.0) g/dL Progress Note: A&P Assessment and Plan (1) Hypertension: (2) Fall from standing: (3) Displaced trimalleolar fracture of right ankle: Onset Date: 01/07/24 Qualifiers: Encounter type: initial encounter Fracture type: closed Qualified Code(s): S82.851A - Displaced trimalleolar fracture of right lower leg, initial encounter for closed fracture (4) Syndesmotic disruption of right ankle: Qualifiers: Encounter type: initial encounter Qualified Code(s): S93.431A - Sprain of tibiofibular ligament of right ankle, initial encounter Plan According to patient she is going to be discharged to the [facility] which I agree with given the patient's upper body weakness and inability to be nonweightbearing. I am very concerned that she is a high fall risk therefore needs additional help and nursing care. Strict nonweightbearing right ankle Keep splint clean dry and intact Continue DVT prophylaxis Follow-up in my office in a week for splint to be changed and incisions to be evaluated Urinary Catheter Management Urinary Catheter Management Urethral: Cath placed during this visit: yes Urethral indwelling: Yes Reason for continuing: surgical procedure Insertion date: 01/09/24 Insertion time: 08:17
--- NOTE | 2024-01-10 11:50 | SWNOTE1 ---
SW set up [facility] transport for pt for 2:00. SW notified [place], nursing, and pt/pt's .
--- NOTE | 2024-01-10 13:52 | OT.DAILY ---
Occupational Therapy Daily Note OT Inpatient Daily Visit Note Start: 01/08/24 11:18 Freq: Status: Active Protocol: Document 01/10/24 13:40 [id number] (Rec: 01/10/24 13:52 [id number]) OT Visit Details Time In/Time Out Time In 12:00 Time Out 12:28 Pain In Pain Level 1 OT Treatment Plan Subjective Subjective I am ready to go Objective Objective Pt was able to sit on EOB, maintaining PUSHPA. No complications or assist supine to sit. Pt refused to complete standing tasks, Pt uncomfortable and was ambulating around room previously with walker. Producing a figure-four position Pt was able to syed/ doff slip sock. With R and L trunk rotations Pt demonstrates good dynamic core strength and bed mobility. Bending at waist line Pt would often become short of breath. Required rest breaks. Good hair care with personal brush and additional preferred supplies. OT Manager [employer] Timed Codes Therapeutic activity minutes (minutes) 20 Therapeutic activity units 1 Self-Half-Way Management minutes ( 8 minutes) Self-Half-Way Management units 1
--- NOTE | 2024-01-10 13:59 | PC.NURSE ---
Attempted to call report at 1345. Was transferred but no one answered. Attempted to call again at 1400 and still no answer after transfer. Terri villarreal [place] said she will have someone call me back.
== END 2024-01-10 14:03 | DRG 493 ==
LOC: ER 22:08 → MS 01-08 07:50
PROVIDERS: Podiatrist Foot & Ankle Surgery; Registered Nurse; Admitting Provider Family Medicine; Emergency Provider Emergency Medicine; Visit Provider Family Medicine
PROC: 0QSJ04Z Reposition Right Fibula with Internal Fixation Device, Open Approach (ICD-10-PCS; CPT 27822; principal; 2024-01-09 07:30)
DX: S82.851A Displaced trimalleolar fracture of right lower leg, initial encounter for closed fracture (principal); E44.0 Moderate protein-calorie malnutrition; E87.1 Hypo-osmolality and hyponatremia; N17.9 Acute kidney failure, unspecified; W18.39XA Other fall on same level, initial encounter; I10 Essential (primary) hypertension; D72.829 Elevated white blood cell count, unspecified; D50.9 Iron deficiency anemia, unspecified; E83.42 Hypomagnesemia; I95.1 Orthostatic hypotension; S93.431A Sprain of tibiofibular ligament of right ankle, initial encounter; Z68.29 Body mass index [BMI] 29.0-29.9, adult
CPT/HCPCS: 27822; 27818; 36415; 64445; 64447; 71045; 73590; 73600; 73610; 76000; 80053; 81001; 82948; 83735; 84484; 85025; 85730; 86850; 86900; 86901; 93005; 94667; 94668; 94761; 96361; 96365; 96366; 96367; 96372; 96375; 97116; 97162; 97165; 97530; 97535; 99152; 99285; C1713; G0378; J0131; J0690; J0696; J1100; J1650; J2250; J2270; J2371; J2405; J2704; J3010; J3475

== ENCOUNTER 2024-01-29 10:00 | Outpatient (OUT) | payer OTHER, SELFPAY ==
--- NOTE | 2024-01-29 | XR_ITS ---
The [address] [address] Patient Name: MARIAN LADD MRN: [id number] date: 1940 Sex: F Assigned Patient Location: Current Patient Location: Accession/Order Number: [id number] Exam Date: 01/29/2024 10:15 Report Date: 01/30/2024 06:54 At the request of: CRYSTAL URIBE Procedure: XR ankle RT min 3V PROCEDURE: XR ankle RT min 3V HISTORY: RIGHT ANKLE PAIN COMPARISON: XR ankle right 01/09/2024 FINDINGS: BONES:Prior repair of distal fibula via a lateral plate and screws. Single screw repair of medial malleolus. Small thin ossification medial to the medial malleolus; likely cortical fracture fragment from prior trauma. Degenerative changes of the first tarsal-metatarsal joint. Uniform spacing of ankle joint. SOFT TISSUES:No visible soft tissue swelling. EFFUSION:None visible. OTHER: Negative. XR/XR ankle RT min 3V IMPRESSION: 1. Stable surgical changes without evidence of hardware failure or change in alignment. Electronically authenticated by: LIZ ALMEIDA Date: 01/30/2024 06:54
--- OUTSIDE RECORDS SUMMARY | 2024-01-29 10:23 | XMS_ITS | CCD ---
Author Organization [facility] Care Team Providers Care Utility Worker [employer] Name Role Phone Alisha Bergman Unavailable Arabella [...] influenza virus vaccine, inactivated 03/02/2023 Recorded [facility] Comment on above: Result Comment: Elec [...] of clutter to prevent tripping and/or falling. [place] Advance Directives reviewed. Documents remain at home, [...] been scheduled, 12/15/2024 Patient agrees to a [facility] referral. Information handout provided to patient. CCM [...] Pressure and Older Adults from the [employer] [place] [employer] provided. Will continue to f/u [...] reports of fractures. (more content not included)... [facility] Comment on above: Result Comment: Elec tronically Signed By: Arabella Mesa\.br\Date and Time Signed: 12/14/23 12:54 EDT\.br\Electronically Co-Signed By: Blanca Rosas\.br\Date and Time Co-Signed: 12/14/23 11:13 EDT Dexa Scanson 07-05-2023 Dexa Scans [id number] 0TIFF [facility] Dexa Scans [id number] 20 [id number]#1.0 0TIFF [facility] Transfer Inon 06-21-2023 Transfer In [id number]#1.0 0TIFF [facility] Ambulatory Visit Summaryon 0 06-19-2023 Ambulatory [...] you for choosing us for your care. [facility] Auth for Release of Medical Recordson 06-19-2023 Auth for Release of Medical Records [id number]#1.0 0TIFF [facility] Family Medicine Office/Clini c Noteon 06-19-2023 Family Medicine Office/Clinic Note HPI Staff Marian is a 82 year old female [facility] Establish Care: History: Any previous diagnosis: HTN, Gerd, edema BLE History of seeing any specialist: Nurse Practitioner Physician Assistant When was your last doctors visit: Last provider: Alisha Grant Any recent labs: 03/2023 [facility](labs requested) Health Maintenance UTD: Colonoscopy: aged out Mammogram: aged out Pelvic/Pap: aged out Acute: Current issues/complaints: pt needs refills on all medications. History of Present Illness pt presents today for annual wellness visit. needs refills on all meds. labs done at [facility] in March. Review of Systems PHQ [...] release of info for previous PCP in [place]. Dexa scan ordered to be done at [facility]. RTC 6 months 2. Hypertension (I10: [...] Daily, # 90 tab(s), Refills(s) 3, Pharmacy: [facility]/pharm[facility] #[id number], 169.3, cm, 06/19/23 13:14:00 EST, Height/Length Dosing, 81.1, kg, 06/19/23 13:14:00 EST, Weight Dosing furosemide, 20 mg = 1 tab(s), Oral, Daily, # 90 tab(s), Refills(s) 3, Pharmacy: [facility]/pharmacy #[id number], 169.3, cm, 06/19/23 13:14:00 EST, Height/Length Dosing, 81.1, kg, 06/19/23 13:14:00 EST, Weight Dosing hydrochlorothiazide-li sinopril, 1 tab(s), Oral, Daily, 90 tab(s), Refill(s) 3, Oral, 0 Refill(s), [facility] #[id number], 169.3, cm, 06/19/23 13:14:00 EST, Height/Length Dosing, 81.1, kg, 06/19/23 13:14:00 EST, Weight Dosing omeprazole, 20 mg = 1 cap(s), Oral, Daily, # 90 cap(s), Refills(s) 3, [id number] 169.3, cm, 06/19/23 13:14:00 EST, Height/Length Dosing, 81.1, kg, 06/19/23 13:14:00 EST, Weight Dosing potassium chloride, 20 mEq = 1 tab(s), Oral, Daily, # 90 tab(s), Refills(s) 3, [id number], 169.3, cm, 06/19/23 13:14:00 EST, Height/Length Dosing, 81.1, kg, 06/19/23 13:14:00 EST, Weight Dosing verapamil, 240 mg = 1 tab(s), Oral, q12hr, # 180 tab(s), Refills(s) 3, [id number], 169.3, cm, 06/19/23 13:14:00 EST, [...] influenza virus vaccine, inactivated 03/02/2023 Recorded [facility] Comment on above: Result Comment: Elec tronically Signed By: Arabella Mesa.br\Date and Time Signed: 06/19/23 14:21 EST Lab Reportson 06-19-2023 Lab Reports [id number] TIFF [facility] Physician Orderon 06-19-2023 Physician Order [id number]#1.00 TIFF [facility] Vital Signs Date Time Vital Sign Value Performing Clinician Facility 04-04-2023 10:15-0500 Body height 168.91 cm Alisha Bergman Other [facility] Other 04-04-2023 10:15-0500 Body mass index (BMI) [Ratio] 28.12 kg/m2 Alisha Bergman Other [facility] Other 04-04-2023 10:15-0500 Body weight 80.24 kg Alisha Bergman Other [facility] Other 04-04-2023 10:15-0500 Diastolic blood pressure 68 mm[Hg] Alisha Bergman Other [facility] Other 04-04-2023 10:15-0500 Respiratory rate 18 /min Alisha Bergman Other [facility] Other 04-04-2023 10:15-0500 SaO2% (BldA) [Mass fraction] 98 % Alisha Bergman Other [facility] Other 04-04-2023 10:150500 Systolic blood pressure 130 mm[Hg] Alisha Bergman Other [facility] Other Encounters Encounter Date Encounter Type Care Provider Facility Start: 12-15-2024 ambulatory Arabella L Candace Facility: [facility] Start: 04-22-2024 ambulatory Arabella L Candace Facility: [facility] Start: 12-26-2023 End: 12-26-2023 ambulatory Arabella L Candace Facility:[facility] Start: 12-13-2023 End: 12-13-2023 ambulatory Arabella L Candace Facility:[facility] Start: 06-25-2023 End: 06-25-2023 ambulatory Alisha Bergman Other [facility] Other Start: 06-25-2023 Telephone encounter Alisha Bergman [facility] Start: 06-19-2023 ambulatory Arabella Candace Facility:[facility] Start: 06-19-2023 End: 06-19-2023 ambulatory Arabella L Candace Facility:[facility] Start: 06-15-2023 End: 06-15-2023 ambulatory Alisha Bergman Other [facility] Other Start: 06-15-2023 Telephone encounter Alisha Bergman [facility] Start: 04-04-2023 End: 04-04-2023 ambulatory Alisha Bergman Other [facility] Other Start: 04-04-2023 Office outpatient vi sit 25 minutes Alisha Bergman [facility] Start: 02-09-2023 End: 02-09-2023 ambulatory Alisha Bergman Other [facility] Other Start: 02-09-2023 Telephone encounter Alisha Bergman [facility] [place] Immunizations Immunization Date Immunization Notes Care Provider Nancy delgado 04-04-2023 Prevnar 20 Alisha Bergman Other [facility] Other 02-25-2022 influenza, seasonal, injectable Alisha Bergman Other [facility] Other Payers Date Payer Category Payer Unknown [id number] 1940 Unknown [id number] 2.16.8 [id number] 1940 Unknown [id number] 2.16.8 [id number] 1940 Unknown [id number] 2.16.8 [id number] 1940 Unknown [id number] 2.16.8 [id number] 1940 Unknown [id number] 2.16.8 [id number] Medicare [id number] 2.1 [id number] Medicare [id number] 2.1 [id number] Medicare [id number] 2.1 [id number] Social History Date Type Detail Facility Sex Assigned At [facility] Other Clinical Note 12-13-2023 Note Date & [...] if: ? Yo (more content not included)... [facility] Evaluation note 04-04-2023 Note Date & [...] continue Mar, Immunization due (ICD-10 - Z23) [facility] Other Evaluation note Note Date & Type Note Facility Evaluation note No Information [facility] Other History general Narrative - Reported Note Date & Type Note Facility History general Narrative - Reported Type Medical History HTN Surgical History twisted colon sx 2014 Surgical History tonsillectomy Hospitalization History see above Hospitalization History child [facility] Other Reason for Referral Reason right hip pain Diagnosis 1 Right hip pain (M25. 551) Referral Organization [facility] Referring Provider First Name Alisha Referring Provider Last Name [facility] Referring Provider Specialty Family Medi cine Referred Organization Unknown Facility Referred Provider Specialty Chiropractic Referral Priority Routine Summary Purpose Family History No Family History Records Found Advance Directives No Advanced Directives Records Found Additional Source Comments REASON FOR VISIT (unrecogniz ed section and content) refills3 month Follow uplett erletter INFORMATION SOURCE (unrecogn ized section and content) DATE CREATED AUTHOR 12/27/2023 [facility] FOR RECORDS PERTAINING TO PATIENTS [...] BE BASED ON THE PRIMARY CLINICAL RECORDS. [employer] [facility]. provides no warranty or guarantee of the accuracy or completeness of information in this document.
== END 2024-01-29 10:01 | disposition home or self-care (01) ==
LOC: EC 10:00
PROVIDERS: Visit Provider Podiatrist Foot & Ankle Surgery
DX: S82.851D Displaced trimalleolar fracture of right lower leg, subsequent encounter for closed fracture with routine healing (principal)
CPT/HCPCS: 73610

== ENCOUNTER 2024-02-29 10:49 | Outpatient (OUT) | payer OTHER, SELFPAY ==
--- NOTE | 2024-02-29 | XR_ITS ---
The [address] [address] Patient Name: MARIAN LADD MRN: [id number] date: 1940 Sex: F Assigned Patient Location: Current Patient Location: Accession/Order Number: [id number] Exam Date: 02/29/2024 10:55 Report Date: 03/02/2024 07:18 At the request of: CRYSTAL URIBE Procedure: XR ankle RT min 3V PROCEDURE: XR ankle RT min 3V HISTORY: RIGHT ANKLE PAIN COMPARISON: XR ankle right 01/29/2024 FINDINGS: BONES:Prior surgical repair of distal fibula via a lateral plate and screws. Single lag screw repair of medial malleolus for prior fracture. Stable small separate ossification medial to the medial malleolus. Normal uniform spacing of the ankle joint. SOFT TISSUES:Moderate soft tissue swelling surrounding the ankle. EFFUSION:None visible. OTHER: Negative. XR/XR ankle RT min 3V IMPRESSION: 1. Stable surgical changes without evidence of hardware failure or change in alignment. Electronically authenticated by: LIZ ALMEIDA Date: 03/02/2024 07:18
--- OUTSIDE RECORDS SUMMARY | 2024-02-29 11:05 | XMS_ITS | CCD ---
Author Organization [facility] Care Team Providers Care Lard Mixer Name Role Phone Alisha Bergman Unavailable Arabella Maria Attending Unavailable CandaceArabella Attending Unavailable CandaceArabella Attending Unavailable CandaceArabella Attending Unavailable CandaceArabella Attending Unavailable CandaceArabella Admitting Unavailable CandaceArabella Attending Unavailable Medications Current Medications Medication Drug [...] Test Name Value Interpretation Reference Range Facil [facility] 02-26-20 [facility] Case Information Case Priority: None Programs: -- Referral Source: Academic Counselor Referral Reason: Care coordination Case Type: Transition Care Management Risk Score: -- Case Status: Enrolled (February 15, 2024) Date Assigned: February 15, 2024 Assigned By: Danilo Milan Date Enrolled: February 15, 2024 Assigned Primary Personnel: Danilo Milan Assigned Secondary Personnel: -- Case Physician: Arabella Mesa Problems Ongoing BMI 28.0-28.9,adult GERD (gastroesophageal reflux disease) Hyperlipidemia Hypertension Osteopenia Post menopausal syndrome Wellness examination Historical No qualifying data Procedure/Surgical History Bilateral cataract surgery (2019), Surgery. Home Medications atorvastatin 10 mg Tab, 10 mg= [...] Tobacco Use:. Cigarettes, Household tobacco concerns: No., 02/19/2024 Family History Esophageal cancer: Mother. Primary malignant neoplasm of prostate: Father. Screenings and Assessments 02/15/24 12:47:00 Result Name Value Comment Phone Call Monitoring Consent Agreed to continue call Phone Verification Patient Information Full name, street address and date of verified CM Program Enrollment Provides verbal consent for enrollment Goals and Interventions Care Plan Progress Note TCM#2- Patient states she is doing 'about the same.' Denies any pain. Patient states therapy will be out today. She notes the exercises are going well. She continues to ambulate with walker. Patient denies any further falls. Patient denies any lightheadedness or dizziness. Patient does not monitor BP at home, notes home health checks when they are there. Patient adds she has a follow up with Dr. Deleon this Sunday02/29/24. Patient denies any further questions or concerns at this time, notes she will call if anything is needed. Communication Events Date: February 26, 2024 Method: Phone call Type: Outbound Duration (min): 4 Outcome: Case discussion Contact Type: Patient Contact Name: CLAUDETTE LADD Notes: TCM#2- see tcm note. Created By: Danilo Milan Date: February 15, 2024 Method: Phone call Type: Outbound Duration (min): 19 Outcome: Case discussion Contact Type: Patient Contact Name: CLAUDETTE LADD Notes: TCM#1- see tcm note Created By: Danilo Milan [facility] Family Medicine Office/Clini c Noteon 02-19-2024 Family Medicine Office/Clinic Note Family Medicine Office/Clinic Note HPI Staff Claudette is a 83 year old female presenting with dc'd from the [facility] for rehab and HH has been ordered.... She has not heard anything from them yet ER followup: Hospital: [facility] ( Records are being faxed) Visit date: 01/07/24 Symptoms the patient presented with: fall and fractured right ankle Current concerns: Xrays showed 2 breaks in her her ankle Dr. Deleon did her surgery on her ankle next appt in February 28 History of Present Illness pt presents today for TCM was at [facility] for rehab after a fall causing a fracture of right ankle Review of Systems PHQ Score Initial Depression Screen Score: 0 SCORE Physical Exam Vitals & Measurements T: 36.8 ?C(Oral) HR: 82(Peripheral) RR: 16 BP: 116/68 SpO2: 99% HT: 67 in HT: 170.0 cm WT: [...] & normal bilaterally, speech normal Assessment/Plan 1. Fracture of right ankle (S82.891A: Other fracture of right lower leg, initial encounter for closed fracture) pt presents today for TCM visit. had a fall and fractured her right ankle. was in rehab at [facility] until 2 days ago. pt is doing well and follows up with surgeon on February 28. Dr. Deleon. RTC 6 months Ordered: [facility] 7 day disch [id number] 2. Osteopenia (M85.80: Other specified disorders of bone density and structure, unspecified site) pt needs refill on fosamax Ordered: alendronate, 70 mg = 1 tab(s), Oral, q7day, # 12 tab(s), Refills(s) 3, Pharmacy: [facility]/pharmacy #[id number], 169.3, cm, 06/19/23 13:14:00 EST, Height/Length Dosing, 81.1, kg, 06/19/23 13:14:00 EST, Weight Dosing alendronate, 70 mg = 1 tab(s), Oral, q7day, # 12 tab(s), Refills(s) 3, [facility], 170, cm, 02/19/24 10:45:00 EDT, Height/Length Dosing, 80.3, kg, 02/19/24 10:45:00 EDT, Weight Dosing 3. Non-smoker (Z78.9: Other specified health status) continue not smoking Ordered: Body Mass Index (BMI) documented 3008F Current tobacco non-user 1036F Depression Screening Negative 3352F Influenza immunization status assessed 1030F Medication list documented in medical record 1159F Most recent diastolic blood pressure >=90 mm Hg 3080F Patient screen for fall risk: no falls in last year or 1 fall with no injury in last year 1101F Review of all meds by a prescribing practitioner or clinical pharmacist documented in EHR 1160F Systolic BP <130 mm Hg (Most Recent) 3074F 4. BMI 27.0-27.9,adult (Z68.27: Body mass index [BMI] 27.0-27.9, adult) BMI education given Ordered: Body Mass Index (BMI) documented 3008F Current tobacco non-user 1036F Depression Screening Negative 3352F Influenza immunization status assessed 1030F Medication list documented in medical record 1159F Most recent diastolic blood pressure >=90 mm Hg 3080F Patient screen for fall risk: no falls in last year or 1 fall with no injury in last year 1101F Review of all meds by a prescribing practitioner or clinical pharmacist documented in EHR 1160F Systolic BP <130 mm Hg (Most Recent) 3074F 5. Overweight (BMI 25.0-29.9) (E66.3: Overweight) see above Ordered: Body Mass Index (BMI) documented 3008F Current tobacco non-user 1036F Depression Screening Negative 3352F Influenza immunization status assessed 1030F Medication list documented in medical record 1159F Most recent diastolic blood pressure >=90 mm Hg 3080F Patient screen for fall risk: no falls in last year or 1 fall with no injury in last year 1101F Review of all meds by a prescribing practitioner or clinical pharmacist documented in EHR 1160F Systolic BP <130 mm Hg (Most Recent) 3074F Follow-up No qualifying data available Problem List/Past [...] 240 mg= 1 tab(s), Oral, q12hr, 3 ref (more content not included)... [facility] Comment on above: Result Comment: Elec tronically Signed By: Arabella Mesa\.br\Date and Time Signed: 02/19/24 11:51 EDT [facility] 02-15-20 [facility] Case Information Case Priority: None Programs: -- Referral Source: Academic Counselor Referral Reason: Care coordination Case Type: Transition Care Management Risk Score: -- Case Status: Enrolled (February 15, 2024) Date Assigned: February 15, 2024 Assigned By: Danilo Milan Date Enrolled: February 15, 2024 Assigned Primary Personnel: Danilo Milan Assigned Secondary Personnel: -- Case Physician: Arabella Mesa Problems Ongoing BMI 28.0-28.9,adult GERD (gastroesophageal reflux disease) Hyperlipidemia Hypertension Osteopenia Post menopausal syndrome Wellness examination Historical No qualifying data Procedure/Surgical History Bilateral cataract surgery (2019), Surgery. Home Medications atorvastatin 10 mg Tab, 10 mg= [...] Mother. Primary malignant neoplasm of prostate: Father. Screenings and Assessments 02/15/24 12:47:00 Result Name Value Comment Phone Call Monitoring Consent Agreed to continue call Phone Verification Patient Information Full name, street address and date of verified CM Program Enrollment Provides verbal consent for enrollment Goals and Interventions Care Plan Progress Note Admit Date: 01/10/2024 from [facility] to [facility] Date of Discharge: 02/13/24 Follow-up appointment scheduled? yes, TCM F/U Lynn Candace 02/19/24 at 1040 Did you understand your discharge instructions? yes Are you able to follow them? yes Did you receive new medications? 'do not believe so' Have you filled the Rx's? na Are you taking them as prescribed? na Are you having difficulty eating or swallowing your pills? no Are you having any stomach upset, diarrhea or constipation? no, last BM this morning How are you sleeping? good Are you having any pain? 'none' Do you have everything you need at home to care for yourself? yes Do you have Home Health? [facility] Home Health will be following, per pt they have not been to home at this time Called patient for initial Transitional Care Management Program call. Readmission risk not available. Patient was discharged from [facility] at [place] following rehab for fractured right ankle. Patient was admitted to [facility] 01/07/2024 and d/c on 01/09 with dx of: HTN, fall from standing, displaced trimalleolar fracture of right ankle. Patient underwent ORIF 01/09/24. There were no medication changes made upon d/c from [facility]. Patient can not recall if there were any changes while at [facility]. Medication reconciliation will need to be completed TCM f/u. Patient states she is doing 'pretty good.' States she is glad to be home and doesn't want to go any where for a while. Patient denies any dizziness. Denies any further falls since [facility] d/c. Patient states she is getting around really good with her 'cart (walker).' Patient notes she does not believe she needs any further PT, noting that therapy received at [facility] 'went good.' She denies any pain and continues to wear the boot. Patient notes she has a good appetite. She is drinking 'well.' Denies any issues with urinary system. Patient has a follow up with Dr. Deleon 02/29/2024, and TCM f/u with PCP on 02/19/24 at 1040. Patient instructed to bring her medications to TCM f/u OV, she verbalized understanding. CN explained TCM program and gave CN contact number. Patient deneis any further questions or concerns. *please note that above information was obtained from the patient as [facility] d/c has not been received. [facility] hospital records are present in chart. Communication Events Date: February 15, 2024 Method: Phone call Type: Outbound Duration (min): 19 Outcome: Case discussion Contact Type: Patient Contact Name: CLAUDETTE LADD Notes: TCM#1- see tcm note Created By: Danilo Milan [facility] Family Medicine Office/Clini c Noteon 12-26-2023 Family Medicine Office/Clinic Note Family Medicine Office/Clinic Note HPI Staff Claudette is a 83 year old female presenting [...] influenza virus vaccine, inactivated 03/02/[address] [facility] Comment on above: Result Comment: Elec tronically Signed By: Arabella Mesa\.br\Date and Time Signed: 12/26/23 11:37 EDT Family [...] were given. Reviewed Medicare Prevention Services checklist. [facility]-F[facility] Prevention and home safety screening reviewed. Patient denies any falls in last 12 months, voices no worry about falling. Exhibits no problems with sitting, standing or ambulation. Patient aware with keeping walk way area free of clutter to prevent tripping and/or falling. [place] Advance Directives reviewed. Documents remain at home, [...] been scheduled, 12/15/2024 Patient agrees to a CCM referral. Information handout provided to patient. CCM [...] Pressure and Older Adults from the [employer] [place] [employer] provided. Will continue to f/u [...] reports of fractures. (more content not included)... [facility] Comment on above: Result Comment: Elec tronically Signed By: Arabella Mesa\.vianey\Date and Time Signed: 12/14/23 12:54 EDT\.br\Electronically Co-Signed By: Blanca Rosas\.br\Date and Time Co-Signed: 12/14/23 11:13 EDT Dexa Scanson 07-05-2023 Dexa Scans [id number] 20 [id number]#1.0 0TIFF [facility] Dexa Scans [id number] 20 [id number]#1.0 0TIFF [facility] Transfer Inon 06-21-2023 Transfer In [id number] 10 [id number]#1.0 0TIFF [facility] Ambulatory Visit Summaryon 0 06-19-2023 Ambulatory Visit Summary CLAUDETTE LADD :1940 Visit Date:06/19/2023 Ambulatory Visit Instructions [...] you for choosing us for your care. [facility] Auth for Release of Medical Recordson 06-19-2023 Auth for Release of Medical Records [id number]#1.0 0TIFF [facility] Medicine Office/Clini c Noteon 06-19-2023 Family Medicine Office/Clinic Note HPI Staff Claudette is a 82 year old female presenting to establish care Establish Care: History: Any previous diagnosis: HTN, Gerd, edema BLE History of seeing any specialist: Doctor Assistant When was your last doctors visit: Last provider: Alisha Grant Any recent labs: 03/2023 [facility](labs requested) Health Maintenance UTD: Colonoscopy: aged out Mammogram: aged out Pelvic/Pap: aged out Acute: Current issues/complaints: pt needs refills on all medications. History of Present Illness pt presents today for annual wellness visit. needs refills on all meds. labs done at [facility] in March. Review of Systems PHQ [...] release of info for previous PCP in [place]. Dexa scan ordered to be done at [facility]. RTC 6 months 2. Hypertension (I10: [...] Daily, # 90 tab(s), Refills(s) 3, Pharmacy: [facility]/pharmacy #[id number], 169.3, cm, 06/19/23 13:14:00 EST, Height/Length Dosing, 81.1, kg, 06/19/23 13:14:00 EST, Weight Dosing furosemide, 20 mg = 1 tab(s), Oral, Daily, # 90 tab(s), Refills(s) 3, Pharmacy: [facility]/pharmacy #[id number], 169.3, cm, 06/19/23 13:14:00 EST, Height/Length Dosing, 81.1, kg, 06/19/23 13:14:00 EST, Weight Dosing hydrochlorothiazide-li sinopril, 1 tab(s), Oral, Daily, 90 tab(s), Refill(s) 3, Oral, 0 Refill(s), [facility]/pharmacy #[id number], 169.3, cm, 06/19/23 13:14:00 EST, Height/Length Dosing, 81.1, kg, 06/19/23 13:14:00 EST, Weight Dosing omeprazole, 20 mg = 1 cap(s), Oral, Daily, # 90 cap(s), Refills(s) 3, Pharmacy: [facility]/pharmacy #[id number], 169.3, cm, 06/19/23 13:14:00 EST, Height/Length Dosing, 81.1, kg, 06/19/23 13:14:00 EST, Weight Dosing potassium chloride, 20 mEq = 1 tab(s), Oral, Daily, # 90 tab(s), Refills(s) 3, Pharmacy: [facility]/pharmacy #[id number], 169.3, cm, 06/19/23 13:14:00 EST, Height/Length Dosing, 81.1, kg, 06/19/23 13:14:00 EST, Weight Dosing verapamil, 240 mg = 1 tab(s), Oral, q12hr, # 180 tab(s), Refills(s) 3, Pharmacy: [facility]/pharmacy #[id number], 169.3, cm, 06/19/23 13:14:00 EST, Height/Length [...] influenza virus vaccine, inactivated 03/02/2023 Recorded [facility] Comment on above: Result Comment: Elec tronically Signed By: Arabella Mesa\.br\Date and Time Signed: 06/19/23 14:21 EST Lab Reportson 06-19-2023 Lab Reports [id number]#1.00 TIFF [facility] Physician Orderon 06-19-2023 Physician Order [id number]#1.00 TIFF [facility] Vital Signs Date Time Vital Sign Value Performing Clinician Facility 04-04-2023 10:15-0500 Body height 168.91 cm Alisha Bergman Other [facility] Other 04-04-2023 10:15-0500 Body mass index (BMI) [Ratio] 28.12 kg/m2 Alisha Bergman Other [facility] Other 04-04-2023 10:15-0500 Body weight 80.24 kg Alisha Bergman Other [facility] Other 04-04-2023 10:15-0500 Diastolic blood pressure 68 mm[Hg] Alisha Bergman Other [facility] Other 04-04-2023 10:15-0500 Respiratory rate 18 /min Alisha Bergman Other [facility] Other 04-04-2023 10:15-0500 SaO2% (BldA) [Mass fraction] 98 % Alisha Bergman Other [facility] Other 04-04-2023 10:15-0500 Systolic blood pressure 130 mm[Hg] Alisha Bergman Other [facility] Other Encounters Encounter Date Encounter Type Care Provider Facility Start: 12-15-2024 ambulatory Arabella L Candace Facility: [facility] Start: 04-22-2024 ambulatory Arabella L Candace Facility: [facility] Start: 02-19-2024 End: 02-19-2024 ambulatory Arabella L Candace Facility:[facility] Start: 02-15-2024 ambulatory Arabella L Candace Facility: [id number] Start: 12-26-2023 End: 12-26-2023 ambulatory Arabella L Candace [facility] Start: 12-13-2023 End: 12-13-2023 ambulatory Arabella L Candace [facility] Start: 06-25-2023 End: 06-25-2023 ambulatory Alishacarl Bergman Other [facility] Other Start: 06-25-2023 Telephone encounter Alisha Bergman [facility] Start: 06-19-2023 ambulatory Arabella Candace Facility:[facility] Start: 06-19-2023 End: 06-19-2023 ambulatory Arabella L Candace Facility:[facility] Start: 06-15-2023 End: 06-15-2023 ambulatory Alisha Bergman Other [facility] Other Start: 06-15-2023 Telephone encounter Alisha Bergman [facility] Start: 04-04-2023 End: 04-04-2023 ambulatory Alisha Bergman Other [facility] Other Start: 04-04-2023 Office outpatient vi sit 25 minutes Alisha Bergman [facility] Start: 02-09-2023 End: 02-09-2023 ambulatory Alisha Bergman Other [facility] Other Start: 02-09-2023 Telephone encounter Alisha Bergman [facility] Immunizations Immunization Date Immunization Notes Care Provider Fa cili 04-04-2023 Prevnar 20 Alisha Bergman Other [facility] Other 02-25-2022 influenza, seasonal, injectable Alisha Bergman Other [facility] Other Payers Date Payer Category Payer Unknown [id number] 1940 Unknown [id number] 2.16.8 [id number] 1940 Unknown [id number] 2.16.8 [id number] 1940 Unknown [id number] 2.16.8 [id number] 1940 Unknown [id number] 2.16.8 [id number] 1940 Unknown [id number] 2.16.8 [id number] 1940 Unknown [id number] 2.16.8 [id number] Medicare [id number] 2.1 [id number] Medicare [id number] 2.1 [id number] Medicare [id number] 2.1 [id number] Social History Date Type Detail Facility Sex Assigned At [facility] Other Clinical Note 12-13-2023 Note Date & [...] if: ? Yo (more content not included)... [facility] note 04-04-2023 Note Date & Type [...] continue Mar, Immunization due (ICD-10 - Z23) [facility] [employer] Other Evaluation note Note Date & Type Note Facility Evaluation note No Information [facility] [employer] Other History general Narrative - Reported Note Date & Type Note Facility History general Narrative - Reported Type Medical History HTN Surgical History twisted colon sx 2014 Surgical History tonsillectomy Hospitalization History see above Hospitalization History child [facility] Other Reason for Referral Reason right hip pain Diagnosis 1 Right hip pain (M25. 551) Referral Organization [facility] Family Medicin e Fabrice Referring Provider First Name Alisha Referring Provider Last Name [facility] Referring Provider Specialty Family Medi cine Referred Organization Unknown Facility Referred Provider Specialty Chiropractic Referral Priority Routine Summary Purpose Family History No Family History Records Found Advance Directives No Advanced Directives Records Found Additional Source Comments REASON FOR VISIT (unrecogniz ed section and content) refills3 month Follow uplett erletter INFORMATION SOURCE (unrecogn ized section and content) DATE CREATED AUTHOR 02/27/2024 [facility] FOR RECORDS PERTAINING TO PATIENTS [...] BE BASED ON THE PRIMARY CLINICAL RECORDS. [employer] provides no warranty or guarantee of the accuracy or completeness of information in this document.
== END 2024-02-29 10:50 | disposition home or self-care (01) ==
LOC: EC 10:49
PROVIDERS: Visit Provider Podiatrist Foot & Ankle Surgery
DX: M25.571 Pain in right ankle and joints of right foot (principal); Z98.890 Other specified postprocedural states
CPT/HCPCS: 73610

== ENCOUNTER 2024-04-09 09:46 | Outpatient (OUT) | payer OTHER, SELFPAY ==
--- NOTE | 2024-04-09 09:48 | XR_ITS ---
The [address] [address] Patient Name: MARIAN LADD MRN: [id number] date: 1940 Sex: F Assigned Patient Location: [facility] Current Patient Location: Accession/Order Number: [id number] Exam Date: 04/09/2024 09:58 Report Date: 04/12/2024 07:35 At the request of: CRYSTAL URIBE Procedure: XR ankle RT min 3V PROCEDURE: XR ankle RT min 3V HISTORY: Right Ankle Pain COMPARISON: XR ankle right 02/29/2024 FINDINGS: BONES:Prior surgical repair of lateral malleolus via plate and screws. Prior repair of medial malleolus via single lag screw. Stable mild narrowing of the tibiotalar joint space. SOFT TISSUES:Mild soft tissue swelling surrounding the ankle. EFFUSION:None visible. OTHER: Negative. XR/XR ankle RT min 3V IMPRESSION: 1. Stable surgical changes without evidence of hardware failure or change in alignment. Electronically authenticated by: LIZ ALMEIDA Date: 04/12/2024 07:35
--- OUTSIDE RECORDS SUMMARY | 2024-04-09 09:51 | XMS_ITS | CCD ---
Author Organization [facility] Care Team Providers Care Concrete Pavement Installer Name Role Phone Alisha Bergman Unavailable Arabella [...] Test Name Value Interpretation Reference Range Facil [facility] 03-11-20 [facility] Case Information Case Priority: None Programs: -- Referral Source: Strategic Planning Director Referral Reason: Care coordination Case Type: Transition [...] Goals and Interventions Care Plan Progress Note TCM#4- Spoke with patient for final TCM call. States she is doing 'good.' Patient requested to review medications, list reviewed with patient. Patient notes no discrepancies in medication lists. Patient reports her BP has been good, as far as she is aware. Patient notes HH has been monitoring BP and she has PT in home 2 days weekly. Patient denies any further falls since d/c. Patient denies any further episodes of lightheadedness or dizziness. Patient notes she is using her walker religiously. Patient denies any pain to right ankle Notes she is able to ambulate without her boot now.Patient denies any further questions or concerns. Communication Events Date: March 11, 2024 Method: Phone call Type: Outbound Duration (min): 6 Outcome: Case discussion Contact Type: Patient Contact Name: CLAUDETTE LADD Notes: TCM#4- see tcm note. Created By: Danilo Milan Date: March 04, 2024 Method: Phone call Type: Outbound Duration (min): 1 Outcome: Left message-voicemail Contact Type: Patient Contact Name: CLAUDETTE LADD Notes: TCM#3- no answer, left vm for return call. Created By: Danilo Milan Date: February 26, 2024 Method: Phone call Type: Outbound Duration (min): 4 Outcome: Case discussion Contact Type: Patient Contact Name: CLAUDETTE LADD Notes: TCM#2- see tcm note. Created By: Danilo Milan Date: February 15, 2024 Method: Phone call Type: Outbound Duration (min): 19 Outcome: Case discussion Contact Type: Patient Contact Name: CLAUDETTE LADD Notes: TCM#1- see tcm note Created By: Danilo Milan [facility] 02-26-20 [facility] Case Information Case Priority: None Programs: -- Referral Source: Strategic Planning Director Referral Reason: Care coordination Case Type: Transition [...] see tcm note Created By: Danilo Milan [facility] Family Medicine Office/Clini c Noteon 02-19-2024 Family Medicine Office/Clinic Note Family Medicine Office/Clinic Note HPI Staff Claudette is a 83 year old female presenting with dc'd from the [place] for rehab and HH has been ordered.... She has not heard anything from them yet ER followup: Hospital: [facility] ( Records are being faxed) Visit date: 01/07/24 Symptoms the patient presented with: fall and fractured right ankle Current concerns: Xrays showed 2 breaks in her her ankle Dr. Deleon did her surgery on her ankle next appt in February 28 History of Present Illness pt presents today for TCM was at [place] for rehab after a fall causing a [...] her right ankle. was in rehab at [place] until 2 days ago. pt is doing well and follows up with surgeon on February 28. Dr. Deleon. RTC 6 months Ordered: [facility] 7 day disch [id number] 2. Osteopenia (M85.80: Other specified disorders of bone density and structure, unspecified site) pt needs refill on fosamax Ordered: alendronate, 70 mg = 1 tab(s), Oral, q7day, # 12 tab(s), Refills(s) 3, Pharmacy: [facility]/pharmacy #[id number], 169.3, cm, 06/19/23 13:14:00 EST, Height/Length Dosing, 81.1, kg, 06/19/23 13:14:00 EST, Weight Dosing alendronate, 70 mg = 1 tab(s), Oral, q7day, # 12 tab(s), Refills(s) 3, Pharmacy: [facility], 170, cm, 02/19/24 10:45:00 EDT, Height/Length [...] 3 ref (more content not included)... Normal [facility] Comment on above: Result Comment: Elec tronically Signed By: Arabella Mesa\.br\Date and Time Signed: 02/19/24 11:51 EDT [facility] 02-15-20 [facility] Case Information Case Priority: None Programs: -- Referral Source: Strategic Planning Director Referral Reason: Care coordination Case Type: Transition [...] Plan Progress Note Admit Date: 01/10/2024 from [facility] to [facility] Date of Discharge: 02/13/24 Follow-up appointment scheduled? yes, NAVID F/U Lynn Candace 02/19/24 at 1040 Did [...] yourself? yes Do you have Home Health? [facility] [place], per pt they have not been to home at this time Called patient for initial Transitional Care Management Program call. Readmission risk not available. Patient was discharged from [facility] following rehab for fractured right ankle. Patient was admitted to [facility] 01/07/2024 and d/c on 01/09 with dx of: HTN, fall from standing, displaced trimalleolar fracture of right ankle. Patient underwent ORIF 01/09/24. There were no medication changes made upon d/c from [facility]. Patient can not recall if there were any changes while at [facility]. Medication reconciliation will need to be completed TCM f/u. Patient states she is doing 'pretty good.' States she is glad to be home and doesn't want to go any where for a while. Patient denies any dizziness. Denies any further falls since [facility] d/c. Patient states she is getting around really good with her 'cart (walker).' Patient notes she does not believe she needs any further PT, noting that therapy received at [facility] 'went good.' She denies any pain [...] was obtained from the patient as [facility] d/c has not been received. [facility] hospital records are present in chart. Communication Events Date: February 15, 2024 Method: Phone call Type: Outbound Duration (min): 19 Outcome: Case discussion Contact Type: Patient Contact Name: CLAUDETTE LADD Notes: TCM#1- see tcm note Created By: Danilo Milan [facility] Family Medicine Office/Clini c Noteon 12-26-2023 [...] influenza virus vaccine, inactivated 03/02/2023 Recorded Normal [facility] Comment on above: Result Comment: Elec [...] of clutter to prevent tripping and/or falling. [place] Advance Directives reviewed. Documents remain at home, [...] Pressure and Older Adults from the [employer] [employer] provided. Will continue to f/u [...] reports of fractures. (more content not included)... [facility] Comment on above: Result Comment: Elec tronically Signed By: Arabella Mesa\.br\Date and Time Signed: 12/14/23 12:54 EDT\.br\Electronically Co-Signed By: Blanca Rosas\.br\Date and Time Co-Signed: 12/14/23 11:13 EDT Dexa Scanson 07-05-2023 Dexa Scans [id number]#1.0 0TIFF [facility] Dexa Scans [id number]#1.0 0TIFF [facility] Transfer Inon 06-21-2023 Transfer In .[id number]#1.0 0TIFF [facility] Ambulatory Visit Summaryon 0 06-19-2023 Ambulatory [...] you for choosing us for your care. 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 History of Present Illness pt presents today for annual wellness visit. needs refills on all meds. labs done at [facility] in March. Review of Systems PHQ [...] release of info for previous PCP in [place]. Dexa scan ordered to be done at [facility]. RTC 6 months 2. Hypertension (I10: [...] Daily, # 90 tab(s), Refills(s) 3, [id number] 169.3, cm, 06/19/23 13:14:00 EST, Height/Length Dosing, 81.1, kg, 06/19/23 13:14:00 EST, Weight Dosing furosemide, 20 mg = 1 tab(s), Oral, Daily, # 90 tab(s), Refills(s) 3, [id number] 169.3, cm, 06/19/23 13:14:00 EST, Height/Length Dosing, 81.1, kg, 06/19/23 13:14:00 EST, Weight Dosing hydrochlorothiazide-li sinopril, 1 tab(s), Oral, Daily, 90 tab(s), Refill(s) 3, Oral, 0 [facility](s[id number], cm, 06/19/23 13:14:00 EST, Height/Length Dosing, 81.1, kg, 06/19/23 13:14:00 EST, Weight Dosing omeprazole, 20 mg = 1 cap(s), Oral, Daily, # 90 cap(s), Refills(s) 3, [id number] 169.3, cm, 06/19/23 13:14:00 EST, Height/Length Dosing, 81.1, kg, 06/19/23 13:14:00 EST, Weight Dosing potassium chloride, 20 mEq = 1 tab(s), Oral, Daily, # 90 tab(s), Refills(s) 3, [id number] 169.3, cm, 06/19/23 13:14:00 EST, Height/Length Dosing, 81.1, kg, 06/19/23 13:14:00 EST, Weight Dosing verapamil, 240 mg = 1 tab(s), Oral, q12hr, # 180 tab(s), Refills(s) 3, Pharmacy: [facility]/pharmacy #[id number], 169.3, cm, 06/19/23 13:14:00 EST, Height/Length [...] influenza virus vaccine, inactivated 03/02/2023 Recorded Normal [facility] Comment on above: Result Comment: Elec tronically Signed By: Arabella Mesa\.br\Date and Time Signed: 06/19/23 14:21 EST Lab Reportson 06-19-2023 Lab Reports [id number] TIFF Normal [facility] Physician Orderon 06-19-2023 Physician Order [id number] TIFF Normal [facility] Vital Signs Date Time Vital Sign Value Performing Clinician Facility 04-04-2023 10:15-0500 Body height 168.91 cm Alisha Bergman Other [facility] Other 04-04-2023 10:15-0500 Body mass index (BMI) [Ratio] 28.12 kg/m2 Alisha Bergman Other [facility] Other 04-04-2023 10:15-0500 Body weight 80.24 kg Alisha Bergman Other [facility] Other 04-04-2023 10:15-0500 Diastolic blood pressure 68 mm[Hg] Alisha eBrgman Other [facility] Other 04-04-2023 10:15-0500 Respiratory rate 18 /min Alisha Bergman Other [facility] Other 04-04-2023 10:15-0500 SaO2% (BldA) [Mass fraction] 98 % Alisha Bergman Other [facility] Other 04-04-2023 10:15-0500 Systolic blood pressure 130 mm[Hg] Alisha Bergman Other [facility] Other Encounters Encounter Date Encounter Type Care Provider Facility Start: 02-19-2024 End: 02-19-2024 ambulatory Arabella L Candace Facility:[facility] Start: 02-15-2024 End: 03-17-2024 ambulatory Arabella L Candace Facility:[id number] Start: 12-26-2023 End: 12-26-2023 ambulatory Arabella L Candace Facility:[facility] Start: 12-13-2023 End: 12-13-2023 ambulatory Arabella L Candace Facility:[facility] Start: 06-25-2023 End: 06-25-2023 ambulatory Alisha Pacheco Other [facility] Other Start: 06-25-2023 Telephone encounter Alisha Bergman [facility] Start: 06-19-2023 ambulatory Arabella Candace Facility:[facility] Start: 06-19-2023 End: 06-19-2023 ambulatory Arabella L Candace Facility:[facility] Start: 06-15-2023 End: 06-15-2023 ambulatory Alisha Bergman Other [facility] Other Start: 06-15-2023 Telephone encounter Alisha Bergman [facility] [place] Start: 04-04-2023 End: 04-04-2023 ambulatory Alisha Bergman Other [facility] Other Start: 04-04-2023 Office outpatient vi sit 25 minutes Alisha Bergman [facility] Start: 02-09-2023 End: 02-09-2023 ambulatory Alisha Bergman Other [facility] Other Start: 02-09-2023 Telephone encounter Alisha Bergman [facility] Plan of Treatment Date Care Activity Detail Author Start: 12-15-2024 ambulatory Ambulatory Facility:[facility] Start: 04-22-2024 ambulatory Ambulatory Facility: [facility] Immunizations Immunization Date Immunization Notes Care Provider Nancy delgado 04-04-2023 Prevnar 20 Alisha Bergman Other [facility] Other 02-25-2022 influenza, seasonal, injectable Alisha Bergman Other [facility] Other Payers Date Payer Category Payer Unknown [id number] 1938 Unknown [id number] 2.16.8 [id number] 1938 Unknown [id number] 2.16.8 [id number] 1938 Unknown [id number] 2.16.8 [id number] 1938 Unknown [id number] 2.16.8 [id number] 1938 Unknown [id number] 2.16.8 [id number] 1938 Unknown [id number] 2.16.8 [id number] Medicare [id number] 2.1 [id number] Medicare [id number] 2.1 [id number] Medicare [id number] 2.1 [id number] Social History Date Type Detail Facility Sex Assigned At [facility] Other Clinical Note 12-13-2023 Note Date & [...] if: ? Yo (more content not included)... [facility] Evaluation note 04-04-2023 Note Date & Type [...] continue Mar, Immunization due (ICD-10 - Z23) [facility] Other Evaluation note Note Date & Type Note Facility Evaluation note No Information [facility] [email or web address] Other History general Narrative - Reported Note Date & Type Note Facility History general Narrative - Reported Type Medical History HTN Surgical History twisted colon sx 2015 Surgical History tonsillectomy Hospitalization History see above Hospitalization History child [facility] [employer] Other Reason for Referral Reason right hip pain Diagnosis 1 Right hip pain (M25. 551) Referral Organization [facility] Family [facility] [place] Referring Provider First Name Alisha Referring Provider Last Name [facility] Referring Provider Specialty Family Medi cine Referred Organization Unknown Facility Referred Provider Specialty Chiropractic Referral Priority Routine Summary Purpose Family History No Family History Records Found Advance Directives No Advanced Directives Records Found Additional Source Comments REASON FOR VISIT (unrecogniz ed section and content) refills3 month Follow uplett erletter INFORMATION SOURCE (unrecogn ized section and content) DATE CREATED AUTHOR 03/18/2024 [facility] FOR RECORDS PERTAINING TO PATIENTS WHO ARE [...] BE BASED ON THE PRIMARY CLINICAL RECORDS. [facility] [employer] [facility]. provides no warranty or guarantee of the accuracy or completeness of information in this document.
== END 2024-04-09 09:47 | disposition home or self-care (01) ==
LOC: RAD 09:46
PROVIDERS: Visit Provider Podiatrist Foot & Ankle Surgery
DX: M25.571 Pain in right ankle and joints of right foot (principal)
CPT/HCPCS: 73610

== ENCOUNTER 2024-04-25 10:36 | Observation (INO) | payer OTHER, SELFPAY ==
[2024-04-25] VITALS (10 sets, daily range): BP systolic 90–144; BP diastolic 46–72; PULSE 61–90; TEMP 36.4–36.8; O2SAT 90–98; BMI 28.2; BMI 25.3
--- OUTSIDE RECORDS SUMMARY | 2024-04-25 10:41 | XMS_ITS | CCD ---
Author Organization [facility] Care Team Providers Care Violin Tutor Name Role Phone Alisha Bergman Unavailable Arabella Maria Primary Care Physician CandaceArabella Attending Unavailable Candace, Arabella Donnelly Attending Unavailable Candace, Arabella Donnelly Attending Unavailable Candace, Arabella Donnelly Admitting Unavailable Candace, Arabella Donnelly Admitting Unavailable Candace, Arabella Donnelly Attending Unavailable Candace, Arabella Donnelly Attending Unavailable Candace, Arabella Donnelly Attending Unavailable Candace, Arabella Donnelly Attending Unavailable Medications Current Medications Medication Drug Class(es) Dates Sig (Normalized) Sig (Original) alendronic acid 70 mg oral tablet (1 source) Bisphosphonate Start: 4 Fosamax 70 mg Tab 70 mg = 1 tab(s), Oral, q7day, # 12 tab(s), Refills(s) 3, Pharmacy: [facility], 170, cm, 02/19/24 10:45:00 EDT, Height/Length Dosing, 80.3, kg, 02/19/24 10:45:00 EDT, Weight Dosing Start Date: 02/19/24 Status: Ordered amLODIPine 10 mg oral tablet (3 sources) Dihydropyridine Calcium Channel Varghese Start: 3 take 1 tablet by mouth every twenty-four hours amLODIPine Besylate 10 MG 1 tablet Orally Once a day for 90 days Mar, Active atorvastatin 10 mg oral tablet (5 sources) HMG-CoA Reductase Inhibitor Start: 4 take 1 tablet by mouth once daily atorvastatin 10 mg Tab 10 mg = 1 tab(s), Oral, Daily, # 90 tab(s), Refills(s) 3, Pharmacy: [facility], 169.3, cm, 06/19/23 13:14:00 EST, Height/Length Dosing, 81.1, kg, 06/19/23 13:14:00 EST, Weight Dosing Start Date: 06/19/23 Status: Ordered Calcium Citrate (1 source) Start: 4 take 1 tablet by mouth once daily Citracal + D 1 tab, Oral, Daily, Refill(s) 0 Start Date: 12/13/23 Status: Ordered ferrous sulfate (1 source) Start: 4 take 65 mg by mouth once daily ferrous sulfate 65 mg, Oral, Daily, Refills(s) 0 Start Date: 12/13/23 Status: Ordered furosemide 20 mg oral tablet (5 sources) Loop Diuretic Start: 4 take 1 tablet by mouth once daily furosemide 20 mg Tab 20 mg = 1 tab(s), Oral, Daily, # 90 tab(s), Refills(s) 3, Pharmacy: [facility], 169.3, cm, 06/19/23 13:14:00 EST, Height/Length Dosing, 81.1, kg, 06/19/23 13:14:00 EST, Weight Dosing Start Date: 06/19/23 Status: Ordered hydroCHLOROthiazide 25 mg / lisinopril 20 mg oral tablet (5 sources) Thiazide Diuretic, Angiotensin Converting Enzyme Inhibitor Start: 4 take 1 tablet by mouth once daily hydrochlorothiaz antonio-lisinopril 25 mg-20 mg Tab 1 tab(s), Oral, Daily, 90 tab(s), Refill(s) 3, Oral, 0 Refill(s), [facility], 169.3, cm, 06/19/23 13:14:00 EST, Height/Length Dosing, 81.1, kg, 06/19/23 13:14:00 EST, Weight Dosing Start Date: 06/19/23 Status: Ordered Ketoconazole (4 sources) Azole Antifungal Start: 3 Ketoconazole 1 % 1 application Externally Once a day for 28 days Dec, Active magnesium gluconate 250 mg oral tablet (1 source) Start: 4 take 1 tablet by mouth once daily magnesium gluconate 250 mg oral tablet 250 mg, 1 tab(s), Oral, Daily, Refill(s) 0 Start Date: 12/13/23 Status: Ordered omeprazole 20 mg delayed release oral capsule (5 sources) Proton Pump Inhibitor Start: 4 take 1 capsule by mouth once daily omeprazole 20 mg Cap-DR 20 mg = 1 cap(s), Oral, Daily, # 90 cap(s), Refills(s) 3, Pharmacy: [facility], 169.3, cm, 06/19/23 13:14:00 EST, Height/Length Dosing, 81.1, kg, 06/19/23 13:14:00 EST, Weight Dosing Start Date: 06/19/23 Status: Ordered verapamil hydrochloride 240 mg extended release oral tablet (2 sources) Calcium Channel Varghese Start: 4 End: 4 take 1 tablet by mouth every twelve hours verapamil 240 mg ER Tab 240 mg = 1 tab(s), Oral, q12hr, X 30 day(s), # 60 tab(s), Refills(s) 0, Pharmacy: [facility], 170, cm, 02/19/24 10:45:00 EDT, Height/Length Dosing, 80.3, kg, 02/19/24 10:45:00 EDT, Weight Dosing Start Date: 03/31/24 Stop Date: 04/30/24 Status: Ordered take 1 tablet by deedee th every twelve hours Verapamil HCl ER 240 MG 1 tablet Orally twice a day Active Vitamin D3 (1 source) Start: 12-13-2023 Vitamin D3 See Instructions, 5,000 iu daily, Refills(s) 0 Start Date: 12/13/23 Status: Ordered Completed/Discontinued Medications Medication Drug Class(es) Dates Sig (Normalized) Sig (Original) potassium chloride 20 meq extended release oral tablet (1 source) Start: 06-19-2023 take 1 tablet by mouth once daily potassium chloride 20 mEq ER Tab 20 mEq = 1 tab(s), Oral, Daily, # 90 tab(s), Refills(s) 3, Pharmacy: [facility], 169.3, cm, 06/19/23 13:14:00 EST, Height/Length Dosing, 81.1, kg, 06/19/23 13:14:00 EST, Weight Dosing Start Date: 06/19/23 Status: Ordered Problems Problem Classification Problem Date Documented Da te Episodic/Chronic Deficiency and other anemia (2 sources) Iron deficiency anemia; Translations: [Iron deficiency anemia, unspecified] Episodic Deficiency and other anemia (2 sources) Iron deficiency anemia, unspecified; Translations: [Iron deficiency anemia] Episodic Disorders of lipid metabolism (5 sources) Hyperlipidemia; Translations: [Hyperlipidemia, unspecified] 06-19-2023 Chronic Esophageal disorders (5 sources) Gastroesophageal reflux disease; Translations: [Gastro-esophageal reflux disease without esophagitis] 06-19-2023 Chronic Essential hypertension (6 sources) Essential hypertension; Translations: [Essential (primary) hypertension] Chronic Immunizations and screening for infectious disease (1 source) Encounter for immunization Episodic Menopausal disorders (1 source) Disorder associated with menstruation AND/OR menopause 06-19-2023 Chronic Other bone disease and musculoskeletal deformities (1 source) Osteopenia 07-05-2023 Episodic Other non-traumatic joint disorders (1 source) Pain in right hip Episodic Other nutritional; endocrine; and metabolic disorders (1 source) Overweight in adulthood with body mass index of 25 or more but less than 30 12-13-2023 Episodic Unclassified (1 source) Patient encounter status 06-19-2023 Results Test Name Value Interpretation Reference Range Facility CHEMISTRYOrdered By: SYSTEM SYSTEM on 04-22-2024 Albumin [Mass/Vol] 4.3 g/dL Normal 3.3 - 5.0 gm/dL [facility] Albumin/Globulin [Mass ratio] 1.5 {ratio} Normal 1.1 - 2.2 [facility] ALP [Catalytic activity/Vol] 66 [iU]/d Normal 21 - 98 Int._Unit/L [facility] ALT No additional P-5'-P [Catalytic activity/Vol] 6 [iU]/d Normal 6 - 46 Int._Unit/L [facility] Anion gap [Moles/Vol] 12 mmol/L Normal 6 - 16 mEq/L R [facility] AST [Catalytic activity/Vol] 13 [iU]/d Normal 5 - 43 Int._Unit/L [facility] Bilirubin [Mass/Vol] 0.9 mg/dL Normal 0.0 - 1 .1 mg/dL [facility] Calcium [Mass/Vol] 10.2 mg/dL Normal 8.9 - 11. 1 mg/dL [facility] Chloride [Moles/Vol] 99 mmol/L Low 101 - 1 11 mmol/L [facility] Cholesterol [Mass/Vol] 173 mg/dL Normal 120 - 200 mg/dL [facility] Cholesterol in HDL [Mass/Vol] 61 mg/dL Invalid Interpretation Code [facility] Comment on above: Result Comment: '>= 60 LOW RISK' '<= 40 HIGH RISK' Cholesterol in LDL [Mass/Vol] 91 mg/dL Normal <=129mg/dL [facility] Cholesterol in VLDL [Mass/Vol] 25 mg/dL Normal 7 - 40 mg/dL [facility] CO2 [Moles/Vol] 32 mmol/L High 21 - 31 mmol/L [facility] Creatinine [Mass/Vol] 1.8 mg/dL High 0.5 - 1.3 mg/dL [facility] eGFR 27 mL/min/1.73 m2 Low >=59mL/min /1. 73 m2 [facility] Globulin (S) [Mass/Vol] 2.9 g/dL Normal 1.4 - 4.0 gm/dL [facility] Glucose [Mass/Vol] 92 mg/dL Normal 55 - 199 mg/dL [facility] Potassium [Moles/Vol] 3.8 mmol/L Normal 3.5 - 5.3 mmol/L [facility] Protein [Mass/Vol] 7.2 g/dL Normal 6.0 - 7.8 gm/dL [facility] Sodium [Moles/Vol] 139 mmol/L Normal 135 - 145 mmol/L [facility] Triglyceride [Mass/Vol] 126 mg/dL Normal <=149mg/dL [facility] TSH Qn 1.42 m[IU]/L Normal 0.34 - 5.60 mcIU/mL [facility] Urea nitrogen [Mass/Vol] 44 mg/dL High 5 - 21 mg/dL [facility] Urea nitrogen/Creatinine [Mass ratio] 24 mg/mg High 10 - 20 [facility] Population Health 03-11-20 Population [facility] Case Information Case Priority: None Programs: -- Referral Source: Lifestyle Coordinator Referral Reason: Care coordination Case Type: Transition [...] mg= 1 tab(s), Oral, Daily, 3 refills hydrochlorothiazide- lisinopril 25 mg-20 mg Tab, 1 tab(s), Oral, [...] see tcm note Created By: Danilo Milan [facility] 02-26-20 [facility] Case Information Case Priority: None Programs: -- Referral Source: Lifestyle Coordinator Referral Reason: Care coordination Case Type: Transition [...] mg= 1 tab(s), Oral, Daily, 3 refills hydrochlorothiazide- lisinopril 25 mg-20 mg Tab, 1 tab(s), Oral, [...] see tcm note Created By: Danilo Milan [facility] Family Medicine Office/Clini c Noteon 02-19-2024 Family Medicine Office/Clinic Note Family Medicine Office/Clinic Note HPI Staff Claudette is a 83 year old female presenting with dc'd from the [facility] for rehab and HH has been ordered.... She has not heard anything from them yet ER followup: Hospital: [facility] ( Records are being faxed) Visit date: 01/07/24 Symptoms the patient presented with: fall and fractured right ankle Current concerns: Xrays showed 2 breaks in her her ankle Dr. Deleon did her surgery on her ankle next appt in February 28 History of Present Illness pt presents today for TCM was at [place] for rehab after a fall causing a [...] her right ankle. was in rehab at [place] until 2 days ago. pt is doing well and follows up with surgeon on February 28. Dr. Deleon. RTC 6 months Ordered: TCM [facility] 7 day disch 76011 2. Osteopenia (M85.80: Other specified disorders of bone density and structure, unspecified site) pt needs refill on fosamax Ordered: alendronate, 70 mg = 1 tab(s), Oral, q7day, # 12 tab(s), Refills(s) 3, Pharmacy: [facility]/pharmacy #[id number], 169.3, cm, 06/19/23 13:14:00 EST, Height/Length Dosing, 81.1, kg, 06/19/23 13:14:00 EST, Weight Dosing alendronate, 70 mg = 1 tab(s), Oral, q7day, # 12 tab(s), Refills(s) 3, Pharmacy: [facility], 170, cm, 02/19/24 10:45:00 EDT, Height/Length [...] mg= 1 tab(s), Oral, Daily, 3 refills hydrochlorothiazide- lisinopril 25 mg-20 mg Tab, 1 tab(s), Oral, [...] 3 ref (more content not included)... Normal [facility] Comment on above: Result Comment: Elec tronically Signed By: Arabella Mesa\.br\Date and Time Signed: 02/19/24 11:[facility] Case Information Case Priority: None Programs: -- Referral Source: Lifestyle Coordinator Referral Reason: Care coordination Case Type: Transition [...] mg= 1 tab(s), Oral, Daily, 3 refills hydrochlorothiazide- lisinopril 25 mg-20 mg Tab, 1 tab(s), Oral, [...] Plan Progress Note Admit Date: 01/10/2024 from [facility] to [facility] Date of Discharge: 02/13/24 Follow-up appointment scheduled? [...] yourself? yes Do you have Home Health? [facility] Home Health will be following, per pt they have not been to home at this time Called patient for initial Transitional Care Management Program call. Readmission risk not available. Patient was discharged from [facility] [place] following rehab for fractured right ankle. Patient was admitted to [facility] 01/07/2024 and d/c on 01/09 with dx of: HTN, fall from standing, displaced trimalleolar fracture of right ankle. Patient underwent ORIF 01/09/24. There were no medication changes made upon d/c from [facility]. Patient can not recall if there were any changes while at [facility]. Medication reconciliation will need to be completed TCM f/u. Patient states she is doing 'pretty good.' States she is glad to be home and doesn't want to go any where for a while. Patient denies any dizziness. Denies any further falls since [facility] d/c. Patient states she is getting around really good with her 'cart (walker).' Patient notes she does not believe she needs any further PT, noting that therapy received at [facility] 'went good.' She denies any pain and [...] was obtained from the patient as [facility] d/c has not been received. [facility] hospital records are present in chart. Communication Events Date: February 15, 2024 Method: Phone call Type: Outbound Duration (min): 19 Outcome: Case discussion Contact Type: Patient Contact Name: CLAUDETTE LADD Notes: TCM#1- see tcm note Created By: Danilo Milan [facility] Family Medicine Office/Clini c Noteon 12-26-2023 Family [...] mg= 1 tab(s), Oral, Daily, 3 refills hydrochlorothiazide- lisinopril 25 mg-20 mg Tab, 1 tab(s), Oral, [...] virus vaccine, inactivated 03/02/[address] [facility] Comment on above: Result Comment: Eagle batistaally Signed By: Arabella Mesa\Date and Time Signed: 12/26/23 11:37 EDT Family [...] of clutter to prevent tripping and/or falling. [place] Advance Directives reviewed. Documents remain at home, [...] Pressure and Older Adults from the [employer] [place] [employer] A[employer] provided. Will continue to f/u [...] of fractures. (more content not included)... Normal [facility] Comment on above: Result Comment: Elec tronically Signed By: Arabella Mesa\.br\Date and Time Signed: 12/14/23 12:54 EDT\.br\Electronically Co-Signed By: Blanca Rosas\.br\Date and Time Co-Signed: 12/14/23 11:13 EDT Dexa Scanson 07-05-2023 Dexa Scans [id number] #1.00TIFF [facility] Dexa Scans [id number] #1.00TIFF [facility] Transfer Inon 06-21-2023 Transfer In [id number] #1.00TIFF [facility] Ambulatory Visit Summaryon 0 06-19-2023 Ambulatory Visit Summary CLAUDETTE LADD :1940 Visit Date:06/19/2023 Ambulatory Visit Instructions Your Diagnosis Wellness examination Hypertension Hyperlipidemia GERD (gastroesophageal reflux disease) BMI 28.0-28.9,adult Non-smoker Your Care Team Attending Physician - Arabella Mesa Primary Care Physician - Arabella Mesa This Is Your Medications List atorvastatin (atorvastatin 10 mg Tab) furosemide (furosemide 20 mg Tab) hydrochlorothiazide- lisinopril (hydrochlorothiazide -lisinopril 25 mg-20 mg Tab) omeprazole (omeprazole 20 [...] Mouth Every day Oral, 0 Refill(s) Unchanged hydrochlorothiazide- lisinopril (hydrochlorothiazide -lisinopril 25 mg-20 mg Tab) 1 Tablets By [...] you for choosing us for your care. [facility] Auth for Release of Medical Recordson 06-19-2023 Auth for Release of Medical Records [id number] #1.00TIFF [facility] Family Medicine Office/Clini c Noteon 06-19-2023 Family Medicine Office/Clinic Note HPI Staff Claudette is a 82 year old female presenting to [facility] care Establish Care: History: Any previous diagnosis: HTN, Gerd, edema BLE History of seeing any specialist: [facility] When was your last doctors visit: Last provider: Alisha Grant Any recent labs: 03/2023 [facility](labs requested) Health Maintenance UTD: Colonoscopy: aged out Mammogram: aged out Pelvic/Pap: aged out Acute: Current issues/complaints: pt needs refills on all medications. History of Present Illness pt presents today for annual wellness visit. needs refills on all meds. labs done at [facility] in March. Review of Systems PHQ Score [...] release of info for previous PCP in [place]. Dexa scan ordered to be done at [facility]. RTC 6 months 2. Hypertension (I10: Essential [...] Daily, # 90 tab(s), Refills(s) 3, Pharmacy: [facility]/pharmacy #[id number], 169.3, cm, 06/19/23 13:14:00 EST, Height/Length Dosing, 81.1, kg, 06/19/23 13:14:00 EST, Weight Dosing furosemide, 20 mg = 1 tab(s), Oral, Daily, # 90 tab(s), Refills(s) 3, Pharmacy: [facility]/pharmacy #[id number], 169.3, cm, 06/19/23 13:14:00 EST, Height/Length Dosing, 81.1, kg, 06/19/23 13:14:00 EST, Weight Dosing hydrochlorothiazide- lisinopril, 1 tab(s), Oral, Daily, 90 tab(s), Refill(s) 3, Oral, 0 Refill(s), [facility]/pharmacy #[id number], 169.3, cm, 06/19/23 13:14:00 EST, Height/Length Dosing, 81.1, kg, 06/19/23 13:14:00 EST, Weight Dosing omeprazole, 20 mg = 1 cap(s), Oral, Daily, # 90 cap(s), Refills(s) 3, [id number], 169.3, cm, 06/19/23 13:14:00 EST, Height/Length Dosing, 81.1, kg, 06/19/23 13:14:00 EST, Weight Dosing potassium chloride, 20 mEq = 1 tab(s), Oral, Daily, # 90 tab(s), Refills(s) 3, [id number], 169.3, cm, 06/19/23 13:14:00 EST, Height/Length Dosing, 81.1, kg, 06/19/23 13:14:00 EST, Weight Dosing verapamil, 240 mg = 1 tab(s), Oral, q12hr, # 180 tab(s), Refills(s) 3, [id number], 169.3, cm, 06/19/23 13:14:00 EST, Height/Length [...] mg= 1 tab(s), Oral, Daily, 3 refills hydrochlorothiazide- lisinopril 25 mg-20 mg Tab, 1 tab(s), Oral, [...] influenza virus vaccine, inactivated 03/02/2023 Recorded Normal [facility] Comment on above: Result Comment: Elec tronically Signed By: Candace ERVIN, Arabella Donnelly\.br\Date and Time Signed: 06/19/23 14:21 EST Physician Orderon 06-19-2023 Physician Order [id number]# 1.00TIFF Normal [facility] Vital Signs Date Time Vital Sign Value Performing Clinician Facility 04-04-2023 10:15-0500 Body height 168.91 cm Alisha Bergman Other [facility] Other 04-04-2023 10:15-0500 Body mass index (BMI) [Ratio] 28.12 kg/m2 Alisha Bergman Other [facility] Other 04-04-2023 10:15-0500 Body weight 80.24 kg Alisha Bergman Other [facility] Other 04-04-2023 10:15-0500 Diastolic blood pressure 68 mm[Hg] Alisha Bergman Other [facility] Other 04-04-2023 10:15-0500 Respiratory rate 18 /min Alisha Bergman Other [facility] Other 04-04-2023 10:15-0500 SaO2% (BldA) [Mass fraction] 98 % Alisha Bergman Other [facility] Other 04-04-2023 10:15-0500 Systolic blood pressure 130 mm[Hg] Alisha Bergman Other [facility] Other Encounters Encounter Date Encounter Type Care Provider Facility Start: 12-15-2024 ambulatory Arabella L Candace Facility: [facility] Start: 04-22-2024 End: 04-22-2024 Lab Drop off Arabella L Candace [facility] Start: 04-22-2024 End: 04-22-2024 ambulatory Arabella L Candace Facility:[facility] Start: 02-19-2024 End: 02-19-2024 ambulatory Arabella L Candace Facility:[facility] Start: 02-15-2024 End: 03-17-2024 ambulatory Arabella L Candace Facility:[id number] Start: 12-26-2023 End: 12-26-2023 ambulatory Arabella L Candace Facility:[facility] Start: 12-13-2023 End: 12-13-2023 ambulatory Arabella L Candace Facility:[facility] Start: 06-25-2023 End: 06-25-2023 ambulatory Alisha Pacheco Other [facility] Other Start: 06-25-2023 Telephone encounter Alisha Bergman [facility] Start: 06-19-2023 ambulatory Arabella Candace Facility:[facility] Start: 06-19-2023 End: 06-19-2023 ambulatory Arabella L Candace Facility:[facility] Start: 06-15-2023 End: 06-15-2023 ambulatory Alisha Bergman Other [facility] Other Start: 06-15-2023 Telephone encounter Alisha Bergman [facility] Start: 04-04-2023 End: 04-04-2023 ambulatory Alisha Bergman Other [facility] Other Start: 04-04-2023 Office outpatient vi sit 25 minutes Alisha Bergman [facility] [place] Start: 02-09-2023 End: 02-09-2023 ambulatory Alishacarl Bergman Other [facility] Other Start: 02-09-2023 Telephone encounter Alisha Bergman [facility] Procedures Date Procedure Procedure Detail Performing Clinician Start: 05-28-2019 Bilateral cataract surgery Arabella Candace Surgical procedure Arabella Schw [facility] Immunizations Immunization Date Immunization Notes Care Provider Nancy delgado 04-04-2023 Prevnar 20 Alisha Bergman Other [facility] 03-02-2023 influenza virus vaccine, unspecified formulation Arabella Cnadace [facility] 02-25-2022 influenza, seasonal, injectable Alisha Bergman Other [facility] Other Payers Date Payer Category Payer Unknown [id number] 1940 Unknown [id number] 2.16.8 [id number] 1940 Unknown [id number] 2.16.8 [id number] 1940 Unknown [id number] 2.16.8 [id number] 1940 Unknown [id number] 2.16.8 [id number] 1940 Unknown [id number] 2.16.8 [id number] 1940 Unknown [id number] 2.16.8 [id number] 1940 Unknown [id number] 2.16.8 [id number] Medicare [id number] 2.1 [id number] Medicare [id number] 2.1 [id number] Medicare [id number] 2.1 [id number] Social History Date Type Detail Facility Sex Assigned At [facility] Start: 02-19-2024 Tobacco smoking status Never s moked tobacco (finding) [facility] Comment on above: denies use Tobacco smoking status Never [facility] Comment on above: denies use Clinical Note 04-22-2024 Note Date & Type Note Facility 04-22-2024 Note Nurse Consultation [place] Reason for Visit Here for lab draw Assessment/Plan Adult wellness visit (Z00.00: Encounter for general adult medical examination without abnormal findings) Medications atorvastatin 10 mg Tab, 10 mg= 1 tab(s), Oral, Daily, 3 refills Citracal + D, 1 tab, Oral, Daily ferrous sulfate, 65 mg, Oral, Daily Fosamax 70 mg Tab, 70 mg= 1 tab(s), Oral, q7day, 3 refills furosemide 20 mg Tab, 20 mg= 1 tab(s), Oral, Daily, 3 refills hydrochlorothiazide-lisinopril 25 mg-20 mg Tab, 1 tab(s), Oral, Daily, 3 refills magnesium gluconate 250 mg oral tablet, 250 mg= 1 tab(s), Oral, Daily omeprazole 20 mg Cap-DR, 20 mg= 1 cap(s), Oral, Daily, 3 refills potassium chloride 20 mEq ER Tab, 20 mEq= 1 tab(s), Oral, Daily, 3 refills verapamil 240 mg ER Tab, 240 mg= 1 tab(s), Oral, q12hr Vitamin D3, See Instructions Allergies No Known Allergies Immunizations Vaccine Date Status pneumococcal 20-valent conjugate vaccine 04/04/2023 Recorded influenza virus vaccine, inactivated 03/02/2023 Recorded [facility] Clinical Note 12-13-2023 Note Date & Type [...] if: ? Yo (more content not included)... [facility] Evaluation note 04-04-2023 Note Date & Type [...] continue Mar, Immunization due (ICD-10 - Z23) [facility] Other Evaluation + Plan note Note Date & Type Note Facility Evaluation + Plan note Future Appointments Appointment Date:12/15/2024 01:00:00 PM Scheduled Provider: Location:[facility] Appointment Type: Medicare Wellness Subsequent [facility] Evaluation note Note Date & Type Note Facility Evaluation note No Information [facility] Other History general Narrative - Reported Note Date & Type Note Facility History general Narrative - Reported Type Medical History HTN Surgical History twisted colon sx 2014 Surgical History tonsillectomy Hospitalization History see above Hospitalization History child [facility] Other Hospital course Narrative Note Date & Type Note Facility Hospital course Narrative No data available for this section [facility] Hospital Discharge instructions Note Date & Type Note Facility Hospital Discharge instructions No data available for this section [facility] Progress note Note Date & Type Note Facility Progress note No data available for this section [facility] Reason for Referral Reason right hip pain Diagnosis 1 Right hip pain (M25. 551) Referral Organization [facility] Referring Provider First Name Alisha Referring Provider Last Name [facility] Referring Provider Specialty Family Medi cine Referred Organization Unknown Facility Referred Provider Specialty Chiropractic Referral Priority Routine Summary Purpose Family History No Family History Records Found Advance Directives No Advanced Directives Records Found Additional Source Comments REASON FOR VISIT (unrecogniz ed section and content) refills3 month Follow uplett erletter Patient Care team informatio n (unrecognized section and content) Personnel Name: Arabella Mesa Address: Address: [address] [place] [address]- INFORMATION SOURCE (unrecogn ized section and content) DATE CREATED AUTHOR 04/24/2024 [facility] FOR RECORDS PERTAINING TO PATIENTS WHO [...] BE BASED ON THE PRIMARY CLINICAL RECORDS. [employer] provides no warranty or guarantee of the accuracy or completeness of information in this document.
--- NOTE | 2024-04-25 11:04 | CT_ITS ---
[address] [address] Patient Name: MARIAN LADD MRN: [id number] date: 1940 Sex: F Assigned Patient Location: ER Current Patient Location: ER Accession/Order Number: [id number] Exam Date: 04/25/2024 11:45 Report Date: 04/25/2024 12:43 At the request of: ZION AARON Procedure: CT abdomen pelvis wo con EXAMINATION: CT abdomen pelvis wo con HISTORY: Blood in stool COMPARISON: No relevant comparison available. TECHNIQUE: Axial, Coronal, and Sagittal images were obtained without and/or with IV contrast as indicated by examination type. Dose reduction techniques were achieved by using automated exposure control and/or adjustment of mA and/or kV according to patient size and/or use of iterative reconstruction technique. FINDINGS: LUNG BASES: No visible pulmonary or pleural disease. LIVER: No enlargement, atrophy, suspicious density, or significant focal lesion. BILIARY: Several 5 mm stones within noninflamed gallbladder. PANCREAS: No lesion, fluid collection, or abnormal duct dilatation. SPLEEN: No enlargement or focal lesion. ADRENALS: No mass or enlargement. KIDNEYS: Several 5 mm hypodense and hyperdense lesions within left kidney; statistically favoring simple cysts and complex cysts. No urinary tract calculi or obstructive uropathy. BOWEL/MESENTERY: Prior resection and anastomosis of proximal transverse colon. Fluid-filled distal colon with mild haziness of the pericolonic fat within slight indistinctness of margins. No abnormal bowel dilation or obstruction. AORTA/VASCULAR: No aneurysm or dissection. RETROPERITONEUM: No mass or adenopathy. LYMPH NODES: No adenopathy. URINARY BLADDER: Mild wall thickening up to 7 mm. PELVIC ORGANS: No visible mass. Pelvic organs appropriate for patient age. ABDOMINAL WALL: No mass or hernia. 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 OTHER: Negative. CT/CT abdomen pelvis wo con IMPRESSION: 1. Cholelithiasis. No CT evidence of acute cholecystitis. 2. Several small left renal lesions suspected to represent a mixture of simple cysts and complex cysts. Consider follow-up CT abdomen without and with IV contrast to evaluate enhancement characteristics if clinically indicated. 3.Possible mild colitis of the distal colon. 4. Slight wall thickening of urinary bladder; possible cystitis. Electronically authenticated by: LIZ ALMEIDA Date: 04/25/2024 12:43
[2024-04-25 11:26] LABS: Basophils Absolute Auto 0.1 10^3/uL (0.0-0.1); Basophils Percent Auto 0.5 % (0.2-2.0); Eosinophils Absolute Auto 0.2 10^3/uL (0.0-0.7); Eosinophils Percent Auto 1.5 % (0.9-7.0); Hematocrit 36.2 % (36.0-48.0); Hemoglobin 11.9 g/dL (12.0-16.0); Immature Granulocytes Abs Auto 0.05 10^3/uL (0.00-0.03); Immature Granulocytes Pct Auto 0.4 % (0.0-0.5); Lymphocytes Absolute Auto 1.6 10^3/uL (1.2-3.8); Lymphocytes Percent Auto 13.7 % (20.5-60.0); Mean Corpuscular HGB Conc 32.9 g/dL (29.9-35.2); Mean Corpuscular Hemoglobin 28.8 pg (26.7-34.0); Mean Corpuscular Volume 87.7 fL (81.0-99.0); Mean Platelet Volume 11.3 fL (9.5-13.5); Monocytes Absolute Auto 1.2 10^3/uL (0.3-0.8); Monocytes Percent Auto 10.2 % (1.7-12.0); Neutrophils Absolute Auto 8.6 10^3/uL (1.4-6.5); Neutrophils Percent Auto 73.7 % (43.0-75.0); Platelet Count 195 10^3/uL (150-450); Red Blood Count 4.13 10^6/uL (4.20-5.40); Red Cell Distribution Width 14.3 % (11.0-15.0); White Blood Count 11.7 10^3/uL (4.0-11.0)
[2024-04-25 11:28] LABS: Internal Control Within Normal Limits; Occult Blood Negative
--- NOTE | 2024-04-25 11:32 | ECG_ITS ---
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
[2024-04-25 11:35] LABS: Anion Gap 14.1; BUN Creatinine Ratio 19.1; Calcium 9.7 mg/dL (8.5-10.1); Carbon Dioxide 27.7 mmol/L (21.0-32.0); Chloride 101 mmol/L (98-107); Estimated GFR (African America 20 (>=60 mL/min/1.73m^2); Estimated GFR (Non-African Ame 16 (>=60 mL/min/1.73m^2); Glucose 97 mg/dL (74-106); Potassium 3.8 mmol/L (3.5-5.1); Sodium 139 mmol/L (136-145)
[2024-04-25] MEDS: 0.9 % SODIUM CHLORIDE 1,000 ML 100 ML IV (12:55)
--- NOTE | 2024-04-25 13:43 | ED.GENADUL1 ---
HPI HPI - General Adult General Chief complaint: GI Bleed Stated complaint: ABDOMINAL PAIN Time Seen by Provider: 04/25/24 10:43 Source: patient Mode of arrival: walk-in Limitations: no limitations History of Present Illness HPI narrative: 83-year-old female presents to the emergency department because she saw some blood in her stool. She is worried she has colitis again. She had earlier in the year in [place] and apparently was admitted to the hospital at that point. She does not have complaints to me of abdominal pain or nausea. She states she has been eating and drinking. She is on Lasix and was recently started on lisinopril/hydrochlorothiazide. Related Data Home Medications ?Medication ?Instructions ?Recorded ?Confirmed alendronate 70 mg tablet 70 mg PO .once week 01/07/24 04/25/24 atorvastatin 10 mg tablet 10 mg PO DAILY 01/07/24 04/25/24 furosemide 20 mg tablet 20 mg PO DAILY 01/07/24 04/25/24 omeprazole 20 mg capsule,delayed 20 mg PO .Am 01/07/24 04/25/24 release potassium chloride 20 mEq 20 meq PO DAILY 01/07/24 04/25/24 tablet,extended release verapamil 240 mg tablet,extended 240 mg PO BID 01/07/24 04/25/24 release lisinopril 20 1 tab PO QDAY 04/25/24 04/25/24 mg-hydrochlorothiazide 25 mg tablet Allergies Allergy/AdvReac Type Severity Reaction Status Date / Time No Known Drug Allergies Allergy Verified 04/25/24 10:46 Opioid HPI Opioid Management Most Recent Opioid Data: Last Pain Scale 4 01/10/24 13:35 01/10/24 Last Pain Intensity 1 01/10/24 13:40 01/10/24 Last ORT Total Score 0 01/07/24 22:52 01/07/24 Last ORT Risk Category Low Risk 01/07/24 22:52 01/07/24 Review of Systems ROS Narrative A ten point review of systems is negative except as noted above. [facility] Medical History Hypertension ?I10 - Essential (primary) hypertension (ICD-10) Surgical History (Updated 01/07/24 @ 23:05 by Jaylene Monahan RN) History of cataract surgery ?Z98.49 - Cataract extraction status, unspecified eye (ICD-10) History of colon surgery ?Z98.890 - Other specified postprocedural states (ICD-10) Family History (Updated 01/07/24 @ 23:06 by Jaylene Monahan RN) Father Family history of cancer Mother Family history of cancer Social History (Updated 01/07/24 @ 23:08 by Jaylene Monahan RN) Within the past year, how often did you have a drink containing alcohol: monthly or less Within the past year, how many standard drinks containing alcohol did you have on a typical day: 1 or 2 Within the past year, how often did you have six or more drinks on one occasion: never Total score: 0 Score interpretation: A score less than 3 is consistent with normal alcohol consumption. 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 Highest level of school completed/degree received: high school graduate Are you now , , , , never or living with a partner: In a typical week, how many times do you talk on the telephone with family, friends, or neighbors: 3 or more times per week How often do you get together with friends or relatives: 3 or more times per week Little interest or pleasure in doing things: not at all Feeling down, depressed, or hopeless: not at all Feel stressed/tense/nervous/anxious/difficulty sleeping: not at all Do you think of yourself as: straight/heterosexual Gender Identity: female Exam Narrative Exam Narrative: Nurses note and vital signs reviewed and patient is not hypoxic. General: The patient appears in no apparent distress. Patient is resting comfortably on cart. Skin: Warm, dry, no pallor noted. There is no rash noted. Head: Normocephalic, atraumatic Eye: Normal conjunctiva, no drainage Ears, Nose, Mouth, and Throat: oral mucosa is moist. Nares patent. Cardiovascular: Regular Rate and Rhythm Respiratory: Patient is in no distress, no accessory muscle use, lungs are clear to auscultation, no wheezing, rales or rhonchi Back: non-tender GI: Soft and nontender Musculoskeletal: The patient has no evidence of calf tenderness, no pitting edema, symmetrical pulses noted bilaterally Neurological: A&O, normal speech Psychiatric: Cooperative Constitutional Vital Signs, click to edit/add: Last Vital Signs Temp 97.6 F 04/25/24 10:46 Pulse 83 04/25/24 10:46 Resp 18 04/25/24 10:46 BP 144/72 H 04/25/24 10:46 Pulse Ox 98 04/25/24 10:46 O2 Del Method Room Air 04/25/24 10:46 Course Vital Signs Vital signs: Vital Signs Temperature 97.6 F 04/25/24 10:46 Pulse Rate 83 04/25/24 10:46 Respiratory Rate 18 04/25/24 10:46 Blood Pressure 144/72 H 04/25/24 10:46 Pulse Oximetry 98 04/25/24 10:46 Oxygen Delivery Method Room Air 04/25/24 10:46 Temperature 97.6 F 04/25/24 10:46 Pulse Rate 83 04/25/24 10:46 Respiratory Rate 18 04/25/24 10:46 Blood Pressure 144/72 H 04/25/24 10:46 Pulse Oximetry 98 04/25/24 10:46 Oxygen Delivery Method Room Air 04/25/24 10:46 Medical Decision Making MDM Narrative Medical decision making narrative: Rectal exam showed heme-negative stool. WBC is 11,000. CT scan per radiologist is equivocal for colitis. BUN and creatinine however are well above her baseline and this is likely due to the addition of the hydrochlorothiazide on top of the Lasix. She was given IV hydration here and will be admitted. Findings are discussed with the patient. Differential Diagnosis Differential Diagnosis: Colitis, hemorrhoid, dehydration Lab Data Lab results reviewed: Yes I reviewed the patient's lab results Labs: Lab Results 04/25/24 04/25/24 Range/Units 11:15 11:20 WBC 11.7 H (4.0-11.0) 10^3/uL RBC 4.13 L (4.20-5.40) 10^6/uL Hgb 11.9 L (12.0-16.0) g/dL Hct 36.2 (36.0-48.0) % MCV 87.7 (81.0-99.0) fL MCH 28.8 (26.7-34.0) pg MCHC 32.9 (29.9-35.2) g/dL RDW 14.3 (11.0-15.0) % Plt Count 195 (150-450) 10^3/uL MPV 11.3 (9.5-13.5) fL Neut % (Auto) 73.7 (43.0-75.0) % Lymph % (Auto) 13.7 L (20.5-60.0) % Dickson % (Auto) 10.2 (1.7-12.0) % Eos % (Auto) 1.5 (0.9-7.0) % Baso % (Auto) 0.5 (0.2-2.0) % Neut # (Auto) 8.6 H (1.4-6.5) 10^3/uL Lymph # (Auto) 1.6 (1.2-3.8) 10^3/uL Dickson # (Auto) 1.2 H (0.3-0.8) 10^3/uL Eos # (Auto) 0.2 (0.0-0.7) 10^3/uL Baso # (Auto) 0.1 (0.0-0.1) 10^3/uL Abs Immat Gran (auto) 0.05 H (0.00-0.03) 10^3/uL Imm/Tot Granulo (auto) 0.4 (0.0-0.5) % Sodium 139 (136-145) mmol/L Potassium 3.8 (3.5-5.1) mmol/L Chloride 101 (98-107) mmol/L Carbon Dioxide 27.7 (21.0-32.0) mmol/L Anion Gap 14.1 BUN 53.0 H (7.0-18.0) mg/dL Creatinine 2.77 H (0.55-1.02) mg/dL Est GFR ( Amer) 20 L (>=60 mL/min/1.73m^2) Est GFR (Non-Af Amer) 16 L (>=60 mL/min/1.73m^2) BUN/Creatinine Ratio 19.1 Glucose 97 (74-106) mg/dL Calcium 9.7 (8.5-10.1) mg/dL Stool Occult Blood Negative Imaging Data CT scan - abdomen: Radiologist's impression: ITS Impressions Abdomen/Pelvis CT 04/25/24 11:04 IMPRESSION: 1. Cholelithiasis. No CT evidence of acute cholecystitis. 2. Several small left renal lesions suspected to represent a mixture of simple cysts and complex cysts. Consider follow-up CT abdomen without and with IV contrast to evaluate enhancement characteristics if clinically indicated. 3.Possible mild colitis of the distal colon. 4. Slight wall thickening of urinary bladder; possible cystitis. Electronically authenticated by: LIZ ALMEIDA Date: 04/25/2024 12:43 Discharge Plan Discharge Chief Complaint: GI Bleed Clinical Impression: Acute kidney injury Patient Disposition: Admitted as Observation Time of Disposition Decision: 13:42 Condition: Good
--- OUTSIDE RECORDS SUMMARY | 2024-04-25 14:29 | XMS_ITS | CCD ---
Author Organization [facility] Care Team Providers Care Applique Cutter Name Role Phone BergmanAlisha Unavailable CandaceArabella lopez Primary Care Physician Candace, Arabella Donnelly Attending Unavailable Candace, Arabella Donnelly Attending Unavailable Candace, Arabella Donnelly Attending Unavailable Candace, Arabella Donnelly Admitting Unavailable Candace, Arabella Donnelly Admitting Unavailable Candace, Arabella Donnelly Attending Unavailable Candace, Arabella Donnelly Attending Unavailable Candace, Arabella Donnelly Attending Unavailable Cnadace, Arabella Donnelly Attending Unavailable Candace, Arabella Donnelly Attending Unavailable Candace, Arabella Donnelly Admitting Unavailable Medications Current Medications Medication Drug Class(es) Dates Sig (Normalized) Sig (Original) alendronic acid 70 mg oral tablet (1 source) Bisphosphonate Start: 4 Fosamax 70 mg Tab 70 mg = 1 tab(s), Oral, q7day, # 12 tab(s), Refills(s) 3, Pharmacy: [facility], 170, cm, 02/19/24 10:45:00 EDT, Height/Length [...] Daily, # 90 tab(s), Refills(s) 3, Pharmacy: [facility], 169.3, cm, 06/19/23 13:14:00 EST, Height/Length [...] Daily, # 90 tab(s), Refills(s) 3, Pharmacy: [facility], 169.3, cm, 06/19/23 13:14:00 EST, Height/Length Dosing, 81.1, kg, 06/19/23 13:14:00 EST, Weight Dosing Start Date: 06/19/23 Status: Ordered hydroCHLOROthiazide 25 mg / lisinopril 20 mg oral tablet (5 sources) Thiazide Diuretic, Angiotensin Converting Enzyme Inhibitor Start: 4 take 1 tablet by mouth once daily hydrochlorothiaz antonio-lisinopril 25 mg-20 mg Tab 1 tab(s), Oral, Daily, 90 tab(s), Refill(s) 3, Oral, 0 Refill(s), [facility], 169.3, cm, 06/19/23 13:14:00 EST, Height/Length [...] Daily, # 90 cap(s), Refills(s) 3, Pharmacy: [facility], 169.3, cm, 06/19/23 13:14:00 EST, Height/Length Dosing, 81.1, kg, 06/19/23 13:14:00 EST, Weight Dosing Start Date: 06/19/23 Status: Ordered verapamil hydrochloride 240 mg extended release oral tablet (2 sources) Calcium Channel Varghese Start: End: 4 take 1 tablet by mouth every twelve hours verapamil 240 mg ER Tab 240 mg = 1 tab(s), Oral, q12hr, X 30 day(s), # 60 tab(s), Refills(s) 0, Pharmacy: [facility], 170, cm, 02/19/24 10:45:00 EDT, Height/Length [...] Daily, # 90 tab(s), Refills(s) 3, Pharmacy: [facility], 169.3, cm, 06/19/23 13:14:00 EST, Height/Length [...] mg/mg High 10 - 20 Remisol Chem CMPon 04-22-2024 Albumin [Mass/Vol] 4.3 g/dL Normal 3.3-5.0 [facility] Comment on above: Performed By: #### 2 [id number] #### [facility] Laboratory [address] [place] [address] Albumin/Globulin (S) [Mass conc ratio] 1.5 Normal 1.1-2.2 [facility] Comment on above: Performed By: #### 2 [id number] #### [facility] [address] [place] [address] ALP [Catalytic activity/Vol] 66 Int._Unit/L Normal 21-98 [facility] Comment on above: Performed By: #### 2 [id number] #### [facility] [address] [place] [address] ALT No additional P-5'-P [Catalytic activity/Vol] 6 Int._Unit/L Normal 6-46 [facility] Comment on above: Performed By: #### 2 [id number] #### [facility] [address] [place] [address] Anion gap [Moles/Vol] 12 mmol/L Normal 6-16 [facility] Comment on above: Performed By: #### 2 [id number] #### [facility] [address] [place] [address] AST [Catalytic activity/Vol] 13 Int._Unit/L Normal 5-43 [facility] Comment on above: Performed By: #### 2 [id number] #### [facility] [address] [place] [address] Bilirubin [Mass/Vol] 0.9 mg/dL Normal 0.0-1.1 [facility] Comment on above: Performed By: #### 2 [id number] #### [facility] [address] [place] [address] Calcium [Mass/Vol] 10.2 mg/dL Normal 8.9-11.1 [facility] Comment on above: Performed By: #### 2 [id number] #### [facility] [address] [place] [address] Chloride [Moles/Vol] 99 mmol/L Low 101-111 [facility] Comment on above: Performed By: #### 2 [id number] #### [facility] [address] [place] [address] CO2 [Moles/Vol] 32 mmol/L High 21-31 [facility] Comment on above: Performed By: #### 2 [id number] #### [facility] [address] [place] [address] Creatinine [Mass/Vol] 1.8 mg/dL High 0.5-1.3 [facility] Comment on above: Performed By: #### 2 [id number] #### [facility] [address] [place] [address] Globulin (S) [Mass/Vol] 2.9 g/dL Normal 1.4-4.0 [facility] Comment on above: Performed By: #### 2 [id number] #### [facility] [address] [place] [address] Glucose [Mass/Vol] 92 mg/dL Normal 55-199 [facility] Comment on above: Performed By: #### 2 [id number] #### [facility] [address] [place] [address] Potassium [Moles/Vol] 3.8 mmol/L Normal 3.5-5.3 [facility] Comment on above: Performed By: #### 2 [id number] #### [facility] [address] [place] [address] Protein [Mass/Vol] 7.2 g/dL Normal 6.0-7.8 [facility] Comment on above: Performed By: #### 2 137277 #### [facility] [address] [place] [address] Sodium [Moles/Vol] 139 mmol/L Normal 135-145 [facility] Comment on above: Performed By: #### 2 [id number] #### [facility] [address] [place] [address] Urea nitrogen [Mass/Vol] 44 mg/dL High 5-21 [facility] Comment on above: Performed By: #### 2 [id number] #### [facility] [address] [place] [address] Urea nitrogen/Creatinine [Mass ratio] 24 No Units High 10-20 [facility] Comment on above: Performed By: #### 2 [id number] #### [facility] [address] [place] [address] Lipid Panelon 04-22-2024 Cholesterol [Mass/Vol] 173 mg/dL Normal 120-200 [facility] Comment on above: Performed By: #### 2 [id number] #### [facility] [address] [place] [address] Cholesterol in HDL [Mass/Vol] 61 mg/dL Invalid Interpretation Code [facility] Comment on above: Result Comment: '>= 60 LOW RISK' '<= 40 HIGH RISK' Performed By: #### 2 [id number] #### [facility] [address] [place] [address] Cholesterol in LDL [Mass/Vol] 91 mg/dL Normal <=129 [facility] Comment on above: Performed By: #### 2 [id number] #### [facility] [address] [place] [address] Cholesterol in VLDL [Mass/Vol] 25 mg/dL Normal 7-40 [facility] Comment on above: Performed By: #### 2 [id number] #### [facility] [address] [place] [address] Triglyceride [Mass/Vol] 126 mg/dL Normal <=149 [facility] Comment on above: Performed By: #### 2 [id number] #### [facility] [address] [place] [address] TSHon 04-22-2024 TSH Qn 1.42 m[IU]/L Normal 0.34-5.60 [facility] Comment on above: Performed By: #### 2 [id number] #### [facility] [address] [place] [address] eGFRon 04-22-2024 eGFR 27 mL/min/1.73 m2 Low >=59 [facility] Comment on above: Performed By: #### 1 [id number] #### [facility] [address] [facility] [place] [address] [facility] 03-11-20 [facility] Case Information Case Priority: None Programs: -- Referral Source: Clock Assembler Referral Reason: Care coordination Case Type: Transition [...] Type: Patient Contact Name: CLAUDETTE LADD Notes: NAVID#3- no answer, left vm for return call. [...] see tcm note Created By: Danilo Milan [facility] 02-26-20 [facility] Case Information Case Priority: None Programs: -- Referral Source: Clock Assembler Referral Reason: Care coordination Case Type: Transition [...] discussion Contact Type: Patient Contact Name: CLAUDETTE LDAD Notes: TCM#1- see tcm note Created By: Danilo Milan [facility] Family Medicine Office/Clini c Noteon 02-19-2024 Family Medicine Office/Clinic Note Family Medicine Office/Clinic Note [facility] Staff Claudette is a 83 year old female presenting with [facility] [place] [facility] and HH has been ordered.... She has not heard anything from them yet ER followup: Hospital: [facility] ( Records are being faxed) Visit date: 01/07/24 Symptoms the patient presented with: fall and fractured right ankle Current concerns: Xrays showed 2 breaks in her her ankle Dr. Deleon did her surgery on her ankle next appt in February 28 History of Present Illness pt presents today for TCM was at [facility] for rehab after a fall causing a [...] her right ankle. was in rehab at [facility] until 2 days ago. pt is doing well and follows up with surgeon on February 28. Dr. Deleon. RTC 6 months Ordered: [facility] 7 day disch 30486 2. Osteopenia (M85.80: Other specified disorders of bone density and structure, unspecified site) pt needs refill on fosamax Ordered: alendronate, 70 mg = 1 tab(s), Oral, q7day, # 12 tab(s), Refills(s) 3, Pharmacy: [facility]/pharmacy #[id number], 169.3, cm, 06/19/23 13:14:00 EST, Height/Length Dosing, 81.1, kg, 06/19/23 13:14:00 EST, Weight Dosing alendronate, 70 mg = 1 tab(s), Oral, q7day, # 12 tab(s), Refills(s) 3, [facility], 170, cm, 02/19/24 10:45:00 EDT, Height/Length [...] 3 ref (more content not included)... Normal [facility] Comment on above: Result Comment: Elec tronically Signed By: Arabella Mesa\.br\Date and Time Signed: 02/19/24 11:51 EDT [facility] 02-15-20 [facility] Case Information Case Priority: None Programs: -- Referral Source: Clock Assembler Referral Reason: Care coordination Case Type: Transition [...] Plan Progress Note Admit Date: 01/10/2024 from [facility] to [facility] Date of Discharge: 02/13/24 Follow-up appointment scheduled? [...] yourself? yes Do you have Home Health? [facility] Home Health will be following, per pt they have not been to home at this time Called patient for initial Transitional Care Management Program call. Readmission risk not available. Patient was discharged from [facility] following rehab for fractured right ankle. Patient was admitted to [facility] 01/07/2024 and d/c on 01/09 with dx of: HTN, fall from standing, displaced trimalleolar fracture of right ankle. Patient underwent ORIF 01/09/24. There were no medication changes made upon d/c from [facility]. Patient can not recall if there were any changes while at [facility]. Medication reconciliation will need to be completed TCM f/u. Patient states she is doing 'pretty good.' States she is glad to be home and doesn't want to go any where for a while. Patient denies any dizziness. Denies any further falls since [facility] d/c. Patient states she is getting around really good with her 'cart (walker).' Patient notes she does not believe she needs any further PT, noting that therapy received at [facility] 'went good.' She denies any pain and [...] was obtained from the patient as [facility] d/c has not been received. [facility] hospital records are present in chart. Communication Events Date: February 15, 2024 Method: Phone call Type: Outbound Duration (min): 19 Outcome: Case discussion Contact Type: Patient Contact Name: CLAUDETTE LADD Notes: TCM#1- see tcm note Created By: Danilo Milan [facility] Family Medicine Office/Clini c Noteon 12-26-2023 Family Medicine Office/Clinic Note Family Medicine Office/Clinic Note [facility] Staff Claudette is a 83 year old [...] virus vaccine, inactivated 03/02/2023 Recorded Normal [facility] Comment on above: Result Comment: Elec tronically [...] of clutter to prevent tripping and/or falling. [place] Advance Directives reviewed. Documents remain at home, [...] Pressure and Older Adults from the [employer] [place] [employer] provided. Will continue to f/u [...] of fractures. (more content not included)... Normal [facility] Comment on above: Result Comment: Elec tronically Signed By: Arabella Mesa\.br\Date and Time Signed: 12/14/23 12:54 EDT\.br\Electronically Co-Signed By: Blanca Rosas\.br\Date and Time Co-Signed: 12/14/23 11:13 EDT Dexa Scanson 07-05-2023 Dexa Scans [id number] #1.00TIFF [facility] Dexa Scans [id number] #1.00TIFF [facility] Transfer Inon 06-21-2023 Transfer In [id number] #1.00TIFF [facility] Ambulatory Visit Summaryon 0 06-19-2023 Ambulatory [...] you for choosing us for your care. [facility] Auth for Release of Medical Recordson 06-19-2023 Auth for Release of Medical Records [id number] #1.00TIFF [facility] Family Medicine Office/Clini c Noteon 06-19-2023 Family Medicine Office/Clinic Note HPI Staff Claudette is a 82 year old female presenting to establish care Establish Care: History: Any previous diagnosis: HTN, Gerd, edema BLE History of seeing any specialist: Batter Out When was your last doctors visit: Last provider: Alsiha Grant Any recent labs: 03/2023 [facility](labs requested) Health Maintenance UTD: Colonoscopy: aged out Mammogram: aged out Pelvic/Pap: aged out Acute: Current issues/complaints: pt needs refills on all medications. History of Present Illness pt presents today for annual wellness visit. needs refills on all meds. labs done at [facility] in March. Review of Systems PHQ [...] release of info for previous PCP in [place]. Dexa scan ordered to be done at [facility]. RTC 6 months 2. Hypertension (I10: [...] tab(s), Refills(s) 3, Pharmacy: [facility]/pharmacy #[id number], 169.3, cm, 06/19/23 13:14:00 EST, Height/Length Dosing, 81.1, kg, 06/19/23 13:14:00 EST, Weight Dosing furosemide, 20 mg = 1 tab(s), Oral, Daily, # 90 tab(s), Refills(s) 3, [id number] 169.3, cm, 06/19/23 13:14:00 EST, Height/Length Dosing, 81.1, kg, 06/19/23 13:14:00 EST, Weight Dosing hydrochlorothiazide- lisinopril, 1 tab(s), Oral, Daily, 90 tab(s), Refill(s) 3, Oral, 0 Refill(s), [facility]/pharmacy #[id number], 169.3, cm, 06/19/23 13:14:00 EST, Height/Length Dosing, 81.1, kg, 06/19/23 13:14:00 EST, Weight Dosing omeprazole, 20 mg = 1 cap(s), Oral, Daily, # 90 cap(s), Refills(s) 3, [id number] 169.3, cm, 06/19/23 13:14:00 EST, Height/Length Dosing, 81.1, kg, 06/19/23 13:14:00 EST, Weight Dosing potassium chloride, 20 mEq = 1 tab(s), Oral, Daily, # 90 tab(s), Refills(s) 3, [id number] 169.3, cm, 06/19/23 13:14:00 EST, Height/Length Dosing, 81.1, kg, 06/19/23 13:14:00 EST, Weight Dosing verapamil, 240 mg = 1 tab(s), Oral, q12hr, # 180 tab(s), Refills(s) 3, [id number], 169.3, cm, 06/19/23 13:14:00 [...] influenza virus vaccine, inactivated 03/02/2023 Recorded Normal [facility] Comment on above: Result Comment: Elec tronically Signed By: Arabella Mesa\.br\Date and Time Signed: 06/19/23 14:21 EST Physician Orderon 06-19-2023 Physician Order [id number]# 1.00TIFF Normal [facility] Vital Signs Date Time Vital Sign Value Performing Clinician Facility 04-04-2023 10:15-0500 Body height 168.91 cm Alisha Bergman Other [facility] Other 04-04-2023 10:15-0500 Body mass index (BMI) [Ratio] 28.12 kg/m2 Alisha Bergman Other [facility] Other 04-04-2023 10:15-0500 Body weight 80.24 kg Alisha Bergman Other [facility] Other 04-04-2023 10:15-0500 Diastolic blood pressure 68 mm[Hg] Alisha Bergman Other [facility] Other 04-04-2023 10:15-0500 Respiratory rate 18 /min Alisha Bergman Other [facility] Other 04-04-2023 10:15-0500 SaO2% (BldA) [Mass fraction] 98 % Alisha Bergman Other [facility] Other 04-04-2023 10:15-0500 Systolic blood pressure 130 mm[Hg] Alisha Bergman Other [facility] Other Encounters Encounter Date Encounter Type Care Provider Facility Start: 12-15-2024 ambulatory Arabella L Candace Facility: [facility] Start: 04-22-2024 End: 04-22-2024 Lab Drop off Arabella L Candace [facility] Start: 04-22-2024 End: 04-22-2024 ambulatory Arabella L Candace Facility:[facility] Start: 02-19-2024 End: 02-19-2024 ambulatory Arabella L Candace Facility:[facility] Start: 02-15-2024 End: 03-17-2024 ambulatory Arabella L Candace Facility:[id number] Start: 12-26-2023 End: 12-26-2023 ambulatory Arabella L Candace Facility:[facility] Start: 12-13-2023 End: 12-13-2023 ambulatory Arabella L Candace Facility:[facility] Start: 06-25-2023 End: 06-25-2023 ambulatory Alisha Bergman Other [facility] Other Start: 06-25-2023 Telephone encounter Alisha Bergman [facility] Start: 06-19-2023 ambulatory Arabella Candace Facility:[facility] Start: 06-19-2023 End: 06-19-2023 ambulatory Arabella L Candace Facility:[facility] Start: 06-15-2023 End: 06-15-2023 ambulatory Alishamarta Bergman Other [facility] Other Start: 06-15-2023 Telephone encounter Alishamarta Bergman [facility] Start: 04-04-2023 End: 04-04-2023 ambulatory Alisha Bergman Other [facility] Other Start: 04-04-2023 Office outpatient vi sit 25 minutes Alishacarl Bergman [facility] Start: 02-09-2023 End: 02-09-2023 ambulatory Alishamarta Bergman Other [facility] Other Start: 02-09-2023 Telephone encounter Alishacarl Bergman [facility] Procedures Date Procedure Procedure Detail Performing Clinician Start: 05-28-2019 Bilateral cataract surgery Arabella Candace Surgical procedure Arabella Schw ab Immunizations Immunization Date Immunization Notes Care Provider Nancy delgado 04-04-2023 Prevnar 20 Alishamarta Bergman Other [facility] 03-02-2023 influenza virus vaccine, unspecified formulation Arabella Candace [facility] 02-25-2022 influenza, seasonal, injectable Alishamarta Bergman Other [facility] Other Payers Date Payer Category Payer Unknown [id number] 1938 Unknown [id number] 2.16.8 [id number] 1938 Unknown [id number] 2.16.8 [id number] 1938 Unknown [id number] 2.16.8 [id number] 1938 Unknown [id number] 2.16.8 [id number] 1938 Unknown [id number] 2.16.8 [id number] 1938 Unknown [id number] 2.16.8 [id number] 1938 Unknown [id number] 2.16.8 [id number] Medicare [id number] 2.1 [id number] Medicare [id number] 2.1 [id number] Medicare [id number] 2.1 [id number] Social History Date Type Detail Facility Sex Assigned At [facility] Start: 02-19-2024 Tobacco smoking status Never s moked tobacco (finding) [facility] Comment on above: denies use Tobacco smoking status [facility] Comment on above: denies use Clinical Note [...] Recorded influenza virus vaccine, inactivated 03/02/2023 Recorded [facility] Clinical Note 12-13-2023 Note Date & Type [...] if: ? Yo (more content not included)... [facility] Evaluation note 04-04-2023 Note Date [...] continue Mar, Immunization due (ICD-10 - Z23) [facility] Other Evaluation + Plan note Note Date & Type Note Facility Evaluation + Plan note Future Appointments Appointment Date:12/15/2024 01:00:00 PM Scheduled Provider: Location:[facility] Appointment Type: Medicare Wellness Subsequent [facility] Evaluation note Note Date & Type Note Facility Evaluation note No Information [employer] Other History general Narrative - Reported Note Date & Type Note Facility History general Narrative - Reported Type Medical History HTN Surgical History twisted colon sx 2014 Surgical History tonsillectomy Hospitalization History see above Hospitalization History child [facility] Other Hospital course Narrative Note Date & Type Note Facility Hospital course Narrative No data available for this section [facility] Hospital Discharge instructions Note Date & Type Note Facility Hospital Discharge instructions No data available for this section [facility] Progress note Note Date & Type Note Facility Progress note No data available for this section [facility] Reason for Referral Reason right hip pain Diagnosis 1 Right hip pain (M25. 551) Referral Organization [facility] Referring Provider First Name Alisha Referring Provider Last Name [facility] Referring Provider Specialty Family Medi cine Referred Organization Unknown Facility Referred Provider Specialty Chiropractic Referral Priority Routine Summary Purpose Family History No Family History Records Found Advance Directives No Advanced Directives Records FoundNo Advanced Directives Records FoundNo Advanced Directives Records FoundNo Advanced Directives Records FoundNo Advanced Directives Records Found Additional Source Comments REASON FOR VISIT (unrecogniz ed section and content) refills3 month Follow uplett erletter Patient Care team informatio n (unrecognized section and content) Personnel Name: Arabella Mesa Address: Address: [address] [place] [address]- INFORMATION SOURCE (unrecogn ized section and content) DATE CREATED AUTHOR 04/24/2024 [facility] DATE CREATED AUTHOR AUTHOR'S ORGANIZ ATION 04/25/2024 [facility] FOR RECORDS PERTAINING TO PATIENTS WHO [...] BE BASED ON THE PRIMARY CLINICAL RECORDS. [employer] [facility]. provides no warranty or guarantee of the accuracy or completeness of information in this document.
--- NOTE | 2024-04-25 14:50 | SWNOTE1 ---
Nurse in room completing admission assessment.
[2024-04-25] MEDS: 0.9 % SODIUM CHLORIDE 1,000 ML 125 ML IV (15:42)
[2024-04-25] MEDS: METRONIDAZOLE/SODIUM CHLORIDE 500 MG/100 ML PREMIX 100 MG IV (15:42)
--- NOTE | 2024-04-25 17:08 | P.HP_ITS ---
HPI H&P: HPI History of Present Illness Chief complaint: ABDOMINAL PAIN, DEHYDRATION Narrative: This is a delayed note for my encounter on 04/25/2024. 83-year-old female was in her usual state of health when she noticed bright red blood in the toilet on the day of admission so she decided to come to ED for further evaluation. 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 She had an episode of colitis about a year ago where she had similar presentation and was admitted for 2 to 3 days for IV antibiotics. She also was experiencing mild lower abdominal pain but otherwise denied nausea, vomiting, constipation, diarrhea. She reported good appetite and was eating well and denied poor oral intake. Workup in ER revealed possible colitis on CT scan with evidence of kidney injury with serum creatinine of 2.7 on arrival. Her baseline serum creatinine is 1.3. Patient reports that she had colonoscopy at that time she had colectomy but since then she has not had a colonoscopy. She was admitted for observation for IV fluids to monitor her renal function, serum creatinine and started on IV antibiotics for colitis. Opioid HPI Opioid Management Most Recent Pain and Opioid Data: Last Pain Scale 4 01/10/24 13:35 01/10/24 Last Pain Intensity 1 01/10/24 13:40 01/10/24 Last Pain Assessment 04/26/24 12:00 Last ORT Total Score 0 04/25/24 14:50 04/25/24 Last ORT Risk Category Low Risk 04/25/24 14:50 04/25/24 Review of Systems ROS Status of ROS 10 or more systems reviewed and unremark able except as noted in history and below [facility] Medical History (Updated 04/26/24 @ 13:16 by Shaikh Boogie MD) GERD (gastroesophageal reflux disease) ?K21.9 - Gastro-esophageal reflux disease without esophagitis (ICD-10) Hyperlipidemia ?E78.5 - Hyperlipidemia, unspecified (ICD-10) Syndesmotic disruption of right ankle ?S93.431A - Sprain of tibiofibular ligament of right ankle, initial encounter (ICD-10) Displaced trimalleolar fracture of right ankle (01/07/24) ?S82.851A - Displaced trimalleolar fracture of right lower leg, initial encounter for closed fracture (ICD-10) Bimalleolar fracture of right ankle ?S82.841A - Displaced bimalleolar fracture of right lower leg, initial encounter for closed fracture (ICD-10) Fall from standing ?W19.XXXA - Unspecified fall, initial encounter (ICD-10) Hypertension ?I10 - Essential (primary) hypertension (ICD-10) Surgical History (Updated 04/25/24 @ 14:46 by Bhavna John) History of ankle surgery ?Z98.890 - Other specified postprocedural states (ICD-10) History of cataract surgery ?Z98.49 - Cataract extraction status, unspecified eye (ICD-10) History of colon surgery ?Z98.890 - Other specified postprocedural states (ICD-10) Family History (Updated 01/07/24 @ 23:06 by Jaylene Monahan RN) Father Family history of cancer Mother Family history of cancer Social History (Updated 04/25/24 @ 14:47 by Bhavna John) Within the past year, how often did you have a drink containing alcohol: monthly or less Within the past year, how many standard drinks containing alcohol did you have on a typical day: 1 or 2 Within the past year, how often did you have six or more drinks on one occasion: never Total score: 0 Score interpretation: A score less than 3 is consistent with normal alcohol consumption. 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 Highest level of school completed/degree received: high school graduate Are you now , , , , never or living with a partner: In a typical week, how many times do you talk on the telephone with family, friends, or neighbors: 3 or more times per week How often do you get together with friends or relatives: 3 or more times per week How often do you attend uatsdin or buddhist services: never Do you belong to any clubs or organizations such as uatsdin groups unions, fraternal or athletic groups, or school groups: no Total score: 2 Score interpretation: A score of greater than or equal to 2 indicates the lowest level of social isolation. Little interest or pleasure in doing things: not at all Feeling down, depressed, or hopeless: not at all Feel stressed/tense/nervous/anxious/difficulty sleeping: not at all Do you think of yourself as: straight/heterosexual Gender Identity: female Meds Home Medications and Allergies Home Medications ?Medication ?Instructions ?Recorded ?Confirmed ?Type alendronate 70 mg tablet 70 mg PO .once week 01/07/24 04/25/24 History atorvastatin 10 mg tablet 10 mg PO DAILY 01/07/24 04/25/24 History omeprazole 20 mg capsule,delayed 20 mg PO .Am 01/07/24 04/25/24 History release potassium chloride 20 mEq 20 meq PO DAILY 01/07/24 04/25/24 History tablet,extended release verapamil 240 mg tablet,extended 240 mg PO BID 01/07/24 04/25/24 History release amoxicillin 875 mg-potassium 1 tab PO BID #14 tabs 04/26/24 Rx clavulanate 125 mg tablet Allergies Allergy/AdvReac Type Severity Reaction Status Date / Time No Known Drug Allergies Allergy Verified 04/25/24 10:46 Exam Constitutional Vital Signs, click to edit/add: Last Vital Signs Temp 97.6 F 04/25/24 14:50 Pulse 61 04/25/24 16:48 Resp 16 04/25/24 14:50 BP 108/59 04/25/24 14:50 Pulse Ox 90 L 04/25/24 16:48 O2 Del Method Room Air 04/25/24 16:48 Documenting provider has reviewed patient's vital signs: yes Common normals: no apparent distress and oriented x3 General appearance: cooperative HENMT Common normals: normocephalic and head/scalp atraumatic Head and scalp: normocephalic and atraumatic Eye Common normals: conjunctivae normal and no scleral icterus Conjunctiva: conjunctiva(e) normal Respiratory Common normals: normal respiratory effort and clear to auscultation bilaterally Effort & inspection: able to speak in complete sentences Auscultation: clear to auscultation bilaterally Cardio Common normals: regular rate, S1 normal heart sound and S2 normal heart sound Rate: regular rate Heart sounds: S1 normal and S2 normal GI Common normals: soft to palpation, non-tender and no hepatosplenomegaly Palpation: soft and no hepatosplenomegaly Other: Old surgical scar in midline. Small multiple incisional hernia along surgical scar, but all are soft, non tender. Extremity Common normals: no clubbing, cyanosis or edema Neuro Common normals: oriented x3, moves all extremities and no focal motor deficits Psych Common normals: mental status grossly normal, denies hallucinations, denies homicidal ideation and denies suicidal ideation Results Labs Labs: Short CBC 04/25/24 Range/Units 11:15 WBC 11.7 H (4.0-11.0) 10^3/uL Hgb 11.9 L (12.0-16.0) g/dL Hct 36.2 (36.0-48.0) % Plt Count 195 (150-450) 10^3/uL BMP 04/25/24 11:15 Sodium 139 Potassium 3.8 Chloride 101 Carbon Dioxide 27.7 BUN 53.0 H Creatinine 2.77 H Glucose 97 Calcium 9.7 Assessment and Plan Assessment and Plan (1) Colitis: Assessment and Plan: Started patient on IV Rocephin and Flagyl. Started on IV fluids. Supportive care with antiemetics and pain control. (2) Acute kidney injury: Assessment and Plan: Likely prerenal. Started on IV fluids. Monitor urine output and serum creatinine. (3) Hyperlipidemia: Assessment and Plan: Continue with Lipitor Qualifiers: Hyperlipidemia type: unspecified Qualified Code(s): E78.5 - Hyperlipidemia, unspecified (4) Hypertension: Assessment and Plan: Hold furosemide, lisinopril and hydrochlorothiazide due to dehydration and acute kidney injury Qualifiers: Hypertension type: primary hypertension Qualified Code(s): I10 - Essential (primary) hypertension
[2024-04-25] MEDS: CEFTRIAXONE 1,000 MG in 0.9 % SODIUM CHLORIDE 50 ML 100 MG IV (17:12)
[2024-04-25 21:12] LABS: Hematocrit 31.9 % (36.0-48.0); Hemoglobin 10.5 g/dL (12.0-16.0)
[2024-04-25] MEDS: ATORVASTATIN CALCIUM 10 MG TABLET PO (22:10)
[2024-04-26] MEDS: METRONIDAZOLE/SODIUM CHLORIDE 500 MG/100 ML PREMIX 100 MG IV ×2 (00:11→10:02)
[2024-04-26] MEDS: 0.9 % SODIUM CHLORIDE 1,000 ML 125 ML IV (00:12)
[2024-04-26 04:08] VITALS: BP 110/56; PULSE 68; TEMP 36.6; O2SAT 93
[2024-04-26 04:50] VITALS: O2SAT 93
[2024-04-26 06:09] LABS: Basophils Absolute Auto 0.1 10^3/uL (0.0-0.1); Basophils Percent Auto 0.7 % (0.2-2.0); Eosinophils Absolute Auto 0.2 10^3/uL (0.0-0.7); Eosinophils Percent Auto 3.3 % (0.9-7.0); Hematocrit 31.4 % (36.0-48.0); Hemoglobin 9.9 g/dL (12.0-16.0); Immature Granulocytes Abs Auto 0.03 10^3/uL (0.00-0.03); Immature Granulocytes Pct Auto 0.4 % (0.0-0.5); Lymphocytes Absolute Auto 1.3 10^3/uL (1.2-3.8); Lymphocytes Percent Auto 17.9 % (20.5-60.0); Mean Corpuscular HGB Conc 31.5 g/dL (29.9-35.2); Mean Platelet Volume 11.8 fL (9.5-13.5); Monocytes Absolute Auto 0.7 10^3/uL (0.3-0.8); Neutrophils Absolute Auto 4.9 10^3/uL (1.4-6.5); Neutrophils Percent Auto 67.7 % (43.0-75.0); Platelet Count 159 10^3/uL (150-450); Red Blood Count 3.53 10^6/uL (4.20-5.40); Red Cell Distribution Width 14.6 % (11.0-15.0); White Blood Count 7.3 10^3/uL (4.0-11.0)
[2024-04-26 06:35] LABS: Alanine Aminotransferase 11 U/L (14-59); Albumin Globulin Ratio 0.9; Albumin Level 2.7 g/dL (3.4-5.0); Alkaline Phosphatase 62 U/L (46-116); Aspartate Amino Transferase 9 U/L (15-37); BUN Creatinine Ratio 21.4; Bilirubin Total 0.4 mg/dL (0.2-1.0); Calcium 8.4 mg/dL (8.5-10.1); Carbon Dioxide 27.9 mmol/L (21.0-32.0); Chloride 109 mmol/L (98-107); Estimated GFR (African America 39 (>=60 mL/min/1.73m^2); Estimated GFR (Non-African Ame 32 (>=60 mL/min/1.73m^2); Globulin 2.9 g/dL; Glucose 89 mg/dL (74-106); Potassium 3.9 mmol/L (3.5-5.1); Sodium 143 mmol/L (136-145); Total Protein 5.6 g/dL (6.4-8.2)
[2024-04-26] MEDS: OMEPRAZOLE 20 MG CAPSULE.DR PO (06:38)
[2024-04-26] MEDS: VERAPAMIL HCL ER 240 MG TABLET PO (10:01)
[2024-04-26 11:36] VITALS: O2SAT 94
--- NOTE | 2024-04-26 13:19 | PM.DS1 ---
DS: Providers Provider Date of admission: 04/25/24 14:22 Primary care physician: Non-Staff PhysicianMD Admitting clinician: Shaikh Boogie Attending physician on admission: Shaikh Boogie Consults: 04/25/24 13:12 Physical Therapy Eval and Treat Routine Reason for consultation: Ambulatory dysfunction/weakness Attending physician on discharge: Shaikh Boogie Discharging clinician: Shaikh Boogie Anticipated date of discharge: 04/26/24 DS: Diagnosis Discharge Diagnosis (1) Colitis: (2) Acute kidney injury: (3) Hyperlipidemia: Qualifiers: Hyperlipidemia type: unspecified Qualified Code(s): E78.5 - Hyperlipidemia, unspecified (4) Hypertension: Qualifiers: Hypertension type: primary hypertension Qualified Code(s): I10 - Essential (primary) hypertension DS: Summary Hospital Course Hospital Course: 83-year-old female was in her usual state of health when she noticed bright red blood in the toilet on the day of admission so she decided to come to ED for further evaluation. 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 She had an episode of colitis about a year ago and was admitted for 2 to 3 days for IV antibiotics. She also was experiencing mild lower abdominal pain but otherwise denied nausea, vomiting, constipation, diarrhea. She reported good appetite and was eating well and denied poor oral intake. Workup in ER revealed possible colitis on CT scan with evidence of kidney injury with serum creatinine of 2.7 on arrival. Her baseline serum creatinine is 1.3. Patient reports that she had colonoscopy at that time she had colectomy but since then she has not had a colonoscopy. She was admitted for observation for IV fluids to monitor her renal function, serum creatinine and started on IV antibiotics for colitis. Patient was treated with IV fluids, IV antibiotics. Her renal function improved overnight and her serum creatinine trended down to 1.5. Her blood pressure remained stable during the course of admission. She was instructed to hold Lasix, lisinopril and hydrochlorothiazide and get a basic metabolic panel in 3 to 4 days. She was instructed to follow-up with her PCP after her BMP so that her PCP can determine whether she needs to be on Lasix/lisinopril and hydrochlorothiazide. Patient is medically stable for discharge. I will discharge her on oral Augmentin for colitis. She was instructed to follow-up with PCP in 1 to 2 weeks. Status at Discharge Functional status at discharge: independent ambulation Overall status at discharge: patient is back to baseline Time Spent with Patient Time attestation: Total time spent providing and/or coordinating discharge services: Time spent: greater than 30 minutes Exam Constitutional Vital Signs, click to edit/add: Last Vital Signs Temp 97.9 F 04/26/24 04:08 Pulse 68 04/26/24 04:08 Resp 18 04/26/24 08:00 BP 110/56 04/26/24 04:08 Pulse Ox 94 L 04/26/24 11:36 O2 Del Method Room Air 04/26/24 11:36 Documenting provider has reviewed patient's vital signs: yes Common normals: no apparent distress and oriented x3 General appearance: cooperative Respiratory Common normals: normal respiratory effort and clear to auscultation bilaterally Effort & inspection: able to speak in complete sentences Auscultation: clear to auscultation bilaterally Cardio Common normals: regular rate, S1 normal heart sound and S2 normal heart sound Rate: regular rate Heart sounds: S1 normal and S2 normal GI Common normals: soft to palpation, non-tender and no hepatosplenomegaly Palpation: soft and no hepatosplenomegaly Other: Old surgical scar in midline. Small multiple incisional hernia along surgical scar, but all are soft, non tender. Extremity Common normals: no clubbing, cyanosis or edema Neuro Common normals: oriented x3, moves all extremities and no focal motor deficits Psych Common normals: mental status grossly normal, denies hallucinations, denies homicidal ideation and denies suicidal ideation DS: Data Data Completed and Pending Labs on day of discharge: Labs from last 24 hours 04/26/24 04/25/24 05:53 21:00 WBC 7.3 RBC 3.53 L Hgb 9.9 L 10.5 L Hct 31.4 L 31.9 L MCV 89.0 MCH 28.0 MCHC 31.5 RDW 14.6 Plt Count 159 MPV 11.8 Neut % (Auto) 67.7 Lymph % (Auto) 17.9 L [place] % (Auto) 10.0 Eos % (Auto) 3.3 Baso % (Auto) 0.7 Neut # (Auto) 4.9 Lymph # (Auto) 1.3 [place] # (Auto) 0.7 Eos # (Auto) 0.2 Baso # (Auto) 0.1 Abs Immat Gran (auto) 0.03 Imm/Tot Granulo (auto) 0.4 Sodium 143 Potassium 3.9 Chloride 109 H Carbon Dioxide 27.9 Anion Gap 10.0 BUN 33.0 H Creatinine 1.54 H Est GFR ( Amer) 39 L Est GFR (Non-Af Amer) 32 L BUN/Creatinine Ratio 21.4 Glucose 89 Calcium 8.4 L Total Bilirubin 0.4 AST 9 L ALT 11 L Alkaline Phosphatase 62 Total Protein 5.6 L Albumin 2.7 L Globulin 2.9 Albumin/Globulin Ratio 0.9 Discharge Plan Discharge Disposition: Home, Self-Care Condition: Good Discharge Medications: New amoxicillin-pot clavulanate 875-125 mg tablet 1 tab PO BID Qty: 14 0RF Continued omeprazole 20 mg capsule,delayed release(DR/EC) 20 mg PO .Am verapamil 240 mg tablet extended release 240 mg PO BID atorvastatin 10 mg tablet 10 mg PO DAILY alendronate 70 mg tablet 70 mg PO .once week potassium chloride 20 mEq tablet extended release 20 meq PO DAILY Discontinued furosemide 20 mg tablet 20 mg PO DAILY lisinopril-hydrochlorothiazide 20-25 mg tablet 1 tab PO QDAY Activity: increase activity as tolerated Diet: advance to your usual diet Print Language: Vietnamese Patient Instructions: Amoxicillin/Clavulanate Potassium (By mouth), Acute Kidney Injury (DC) Forms: Portal Instructions Follow Up Appointments: Please call Sunday to schedule f/u with PCP to been seen within one week. Order for Basic Metabolic Panel
== END 2024-04-26 12:50 | disposition home or self-care (01) ==
LOC: ER 13:43 → MS 14:27
PROVIDERS: Admitting Provider Internal Medicine; Emergency Provider Emergency Medicine; Visit Provider Internal Medicine
DX: K52.9 Noninfective gastroenteritis and colitis, unspecified (principal); N17.9 Acute kidney failure, unspecified; E78.5 Hyperlipidemia, unspecified; I10 Essential (primary) hypertension; Z90.49 Acquired absence of other specified parts of digestive tract
CPT/HCPCS: 36415; 74176; 80048; 80053; 81001; 85014; 85018; 85025; 93005; 94761; 96361; 96365; 96366; 96368; 97162; 99285; G0328; G0378; J0696; J1836

== ENCOUNTER 2024-05-14 13:40 | Outpatient (OUT) | payer OTHER, SELFPAY ==
--- NOTE | 2024-05-14 13:43 | MR_ITS ---
[address] [address] Patient Name: MARIAN LADD MRN: [id number] date: 1940 Sex: F Assigned Patient Location: MRI Current Patient Location: Accession/Order Number: [id number] Exam Date: 05/14/2024 14:00 Report Date: 05/15/2024 06:44 At the request of: VICTOR HUGO RIOS Procedure: MR abdomen wo/w con EXAMINATION: MR abdomen wo/w con HISTORY: Multiple Renal Cyst COMPARISON: CT abdomen pelvis 04/25/2024 TECHNIQUE: A comprehensive MRI examination of the abdomen was performed to optimize visualization of suspected pathology. Images were obtained with and/or without intravenous Dotarem contrast as indicated by exam type. FINDINGS: LIVER: No enlargement, atrophy, abnormal signal, or significant focal lesion. BILIARY: Multiple small stones within noninflamed gallbladder. PANCREAS: No lesion, fluid collection, ductal dilatation, or atrophy. SPLEEN: No enlargement or focal lesion. KIDNEYS: A few small simple cysts and proteinaceous cysts. No mass or obstruction. ADRENALS: No mass or enlargement. AORTA/VASCULAR: No aneurysm or dissection. RETROPERITONEUM: No mass or adenopathy. BOWEL/MESENTERY: No visible mass, obstruction, or bowel wall thickening. ABDOMINAL WALL: No mass or hernia. BONES: Scoliotic curvature of lumbar spine. No bony lesion or fracture. LUNG BASES: No visible pleural disease. Lung bases not well assessed with MRI. OTHER: Negative. MR/MR abdomen wo/w con IMPRESSION: 1. Benign-appearing simple and proteinaceous renal cysts. No suspicious findings. 2. Cholelithiasis. Electronically authenticated by: LIZ ALMEIDA Date: 05/15/2024 06:44
--- OUTSIDE RECORDS SUMMARY | 2024-05-14 13:44 | XMS_ITS | CCD ---
Author Organization [facility] Care Team Providers Care Dye House Worker Name Role Phone PachecoAlisha Unavailable CandaceArabella Primary Care Physician Candace, Arabella L Attending Unavailable Candace, Arabella Donnelly Attending Unavailable Candace, Arabella Donnelly Attending Unavailable Candace, Arabella L Admitting Unavailable Candace, Arabella L Admitting Unavailable Candace, Arabella Donnelly Attending Unavailable Candace, Arabella Donnelly Attending Unavailable Candaec, Arabella Donnelly Attending Unavailable Candace, Arabella Donnelly Attending Unavailable Candace, Arabella Donnelly Attending Unavailable Candace, Arabella Donnelly Admitting Unavailable Candace, Arabella Donnelly Attending Unavailable Candace, Arabella Donnelly Admitting Unavailable Candace, Arabella Donnelly Attending Unavailable MD KOFI RAMOS Attending Unav ailable Candace, GIS SOFTWARE DEVELOPER Arabella Donnelly Attending Unavailable Candace, GIS SOFTWARE DEVELOPER Arabella Donnelly Attending Unavailable Candace, GIS SOFTWARE DEVELOPER Arabella Donnelly Attending Unavailable Candace, GIS SOFTWARE DEVELOPER Arabella Donnelly Admitting Unavailable Medications Current Medications Medication Drug Class(es) Dates Sig (Normalized) Sig (Original) alendronic acid 70 mg oral tablet (2 sources) Bisphosphonate Start: 4 Fosamax 70 mg Tab 70 mg = 1 tab(s), Oral, q7day, # 12 tab(s), Refills(s) 3, Pharmacy: [facility], 170, cm, 02/19/24 10:45:00 EDT, Height/Length Dosing, 80.3, kg, 02/19/24 10:45:00 EDT, Weight Dosing Start Date: 02/19/24 Status: Ordered amLODIPine 10 mg oral tablet (3 sources) Dihydropyridine Calcium Channel Varghese Start: 3 take 1 tablet by mouth every twenty-four hours amLODIPine Besylate 10 MG 1 tablet Orally Once a day for 90 days Mar, Active atorvastatin 10 mg oral tablet (6 sources) HMG-CoA Reductase Inhibitor Start: 4 take 1 tablet by mouth once daily atorvastatin 10 mg Tab 10 mg = 1 tab(s), Oral, Daily, # 90 tab(s), Refills(s) 3, Pharmacy: [facility], 169.3, cm, 06/19/23 13:14:00 EST, Height/Length Dosing, 81.1, kg, 06/19/23 13:14:00 EST, Weight Dosing Start Date: 06/19/23 Status: Ordered Calcium Citrate (2 sources) Start: 4 take 1 tablet by mouth once daily Citracal + D 1 tab, Oral, Daily, Refill(s) 0 Start Date: 12/13/23 Status: Ordered ferrous sulfate (2 sources) Start: 4 take 65 mg by mouth once daily ferrous sulfate 65 mg, Oral, Daily, Refills(s) 0 Start Date: 12/13/23 Status: Ordered furosemide 20 mg oral tablet (6 sources) Loop Diuretic Start: 4 take 1 tablet by mouth once daily furosemide 20 mg Tab 20 mg = 1 tab(s), Oral, Daily, # 90 tab(s), Refills(s) 3, Pharmacy: [facility], 169.3, cm, 06/19/23 13:14:00 EST, Height/Length Dosing, 81.1, kg, 06/19/23 13:14:00 EST, Weight Dosing Start Date: 06/19/23 Status: Ordered hydroCHLOROthiazide 25 mg / lisinopril 20 mg oral tablet (6 sources) Thiazide Diuretic, Angiotensin Converting Enzyme Inhibitor Start: 4 take 1 tablet by mouth once daily hydrochlorothiaz antonio-lisinopril 25 mg-20 mg Tab 1 tab(s), Oral, Daily, 90 tab(s), Refill(s) 3, Oral, 0 Refill(s), [facility], 169.3, cm, 06/19/23 13:14:00 EST, Height/Length Dosing, 81.1, kg, 06/19/23 13:14:00 EST, Weight Dosing Start Date: 06/19/23 Status: Ordered Ketoconazole (4 sources) Azole Antifungal Start: 3 Ketoconazole 1 % 1 application Externally Once a day for 28 days Dec, Active magnesium gluconate 250 mg oral tablet (2 sources) Start: 4 take 1 tablet by mouth once daily magnesium gluconate 250 mg oral tablet 250 mg, 1 tab(s), Oral, Daily, Refill(s) 0 Start Date: 12/13/23 Status: Ordered omeprazole 20 mg delayed release oral capsule (6 sources) Proton Pump Inhibitor Start: 4 take 1 capsule by mouth once daily omeprazole 20 mg Cap-DR 20 mg = 1 cap(s), Oral, Daily, # 90 cap(s), Refills(s) 3, Pharmacy: [facility], 169.3, cm, 06/19/23 13:14:00 EST, Height/Length Dosing, 81.1, kg, 06/19/23 13:14:00 EST, Weight Dosing Start Date: 06/19/23 Status: Ordered verapamil hydrochloride 240 mg extended release oral tablet (3 sources) Calcium Channel Varghese Start: 4 End: 4 take 1 tablet by mouth every twelve hours verapamil 240 mg ER Tab 240 mg = 1 tab(s), Oral, q12hr, X 30 day(s), # 60 tab(s), Refills(s) 0, Pharmacy: [facility], 170, cm, 02/19/24 10:45:00 EDT, Height/Length Dosing, 80.3, kg, 02/19/24 10:45:00 EDT, Weight Dosing Start Date: 03/31/24 Stop Date: 04/30/24 Status: Ordered take 1 tablet by deedee th every twelve hours Verapamil HCl ER 240 MG 1 tablet Orally twice a day Active Vitamin D3 (2 sources) Start: 12-13-2023 Vitamin D3 See Instructions, 5,000 iu daily, Refills(s) 0 Start Date: 12/13/23 Status: Ordered Completed/Discontinued Medications Medication Drug Class(es) Dates Sig (Normalized) Sig (Original) potassium chloride 20 meq extended release oral tablet (2 sources) Start: 06-19-2023 take 1 tablet by mouth once daily potassium chloride 20 mEq ER Tab 20 mEq = 1 tab(s), Oral, Daily, # 90 tab(s), Refills(s) 3, Pharmacy: [facility], 169.3, cm, 06/19/23 13:14:00 EST, Height/Length Dosing, 81.1, kg, 06/19/23 13:14:00 EST, Weight Dosing Start Date: 06/19/23 Status: Ordered Problems Problem Classification Problem Date Documented Da te Episodic/Chronic Acute and unspecified renal failure (1 source) Chronic renal failure 04-28-2024 Chronic Acute and unspecified renal failure (1 source) Acute renal failure syndrome 04-28-2024 Episodic Deficiency and other anemia (2 sources) Iron deficiency anemia; Translations: [Iron deficiency anemia, unspecified] Episodic Deficiency and other anemia (2 sources) Iron deficiency anemia, unspecified; Translations: [Iron deficiency anemia] Episodic Disorders of lipid metabolism (6 sources) Hyperlipidemia; Translations: [Hyperlipidemia, unspecified] 06-19-2023 Chronic Esophageal disorders (6 sources) Gastroesophageal reflux disease; Translations: [Gastro-esophageal reflux disease without esophagitis] 06-19-2023 Chronic Essential hypertension (7 sources) Essential hypertension; Translations: [Essential (primary) hypertension] Chronic Genitourinary congenital anomalies (1 source) Multiple renal cysts 04-28-2024 Chronic Immunizations and screening for infectious disease (1 source) Encounter for immunization Episodic Menopausal disorders (2 sources) Disorder associated with menstruation AND/OR menopause 06-19-2023 Chronic Noninfectious gastroenteritis (1 source) Colitis 04-28-2024 Episodic Other bone disease and musculoskeletal deformities (2 sources) Osteopenia 07-05-2023 Episodic Other non-traumatic joint disorders (1 source) Pain in right hip Episodic Other nutritional; endocrine; and metabolic disorders (2 sources) Overweight in adulthood with body mass index of 25 or more but less than 30 12-13-2023 Episodic Unclassified (2 sources) Patient encounter status 06-19-2023 Results Test Name Value Interpretation Reference Range Facility Family Medicine Office/Clini c Noteon 05-06-2024 Family Medicine Office/Clinic Note Family Medicine Office/Clinic Note Chief Complaint Fluid Retention HPI Staff Pt presents today due to fluid retention. SANDEEP 04/28/24- ER follow up- furosemide & lisinopril/HCTZ were DC'd at time of [facility] discharge. 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 (Simple & Complex) Leg was swollen on Sunday. Has resolved. Would like something for diarrhea. History of Present Illness pt presents today for follow up on JOSE CRUZ Review of Systems PHQ Score Initial Depression Screen Score: 0 SCORE Physical Exam Vitals & Measurements HR: 78(Peripheral) RR: 18 BP: 122/76 SpO2: 95% HT: 67 in HT: 170 cm WT: 83 kg WT: 182.983 lb BMI: 28.72 General: alert, no acute distress ENMT: oral mucosa moist, no pharyngeal erythema or exudate Cardiovascular: regular rate and rhythm, normal peripheral perfusion Respiratory: Lungs CTA, respirations non labored Extremities: no deformity, no trauma Neurological: oriented x 4, LOC appropriate for age, CN II-XII intact, motor strength equal & normal bilaterally, speech normal Assessment/Plan 1. JOSE CRUZ (acute kidney injury) (N17.9: Acute kidney failure, unspecified) pt was recently in hospital and diagnosed with JOSE CRUZ. her lisnopril/hctz and lasix was discontinued. will restart lasix every other day. RTC 3 weeks for BMP Ordered: Basic Metabolic Panel 2. 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 referral sent to urologist. scheduled on May 29. CT ordered. waiting for call to schedule Ordered: Basic Metabolic Panel 3. Fluid retention (R60.9: Edema, unspecified) pt to take lasix every other day Ordered: Basic Metabolic Panel 4. BMI 28.0-28.9,adult (Z68.28: Body mass index [BMI] 28.0-28.9, adult) BMI education given Ordered: Basic Metabolic Panel 5. Overweight (BMI 25.0-29.9) (E66.3: Overweight) see above Ordered: Basic Metabolic Panel 6. Non-smoker (Z78.9: Other specified health status) continue not smoking Ordered: Basic Metabolic Panel Follow-up No qualifying data available Problem List/Past Medical History Ongoing JOSE CRUZ (acute kidney injury) BMI 28.0-28.9,adult Colitis Fluid retention GERD (gastroesophageal reflux disease) Hyperlipidemia Hypertension Multiple renal cysts Osteopenia Post menopausal syndrome Wellness examination Historical [...] 20 mg= 1 tab(s), Oral, Daily, 3 refills, Not taking: Per ER instructions hydrochlorothiazide- lisinopril 25 mg-20 mg Tab, 1 tab(s), Oral, Daily, 3 refills, Not taking: Per ER instructions magnesium gluconate 250 mg oral tablet, 250 mg= 1 tab(s), Oral, Daily omeprazole 20 mg Cap-DR, 20 mg= 1 cap(s), Oral, Daily, 3 refills potassium chloride 20 mEq ER Tab, 20 mEq= 1 tab(s), Oral, Daily, 3 refills verapamil 240 mg ER Tab Vitamin D3, See Instructions Allergies No Known [...] Smokeless Tobacco Use:. Cigarettes, Household tobacco concerns: No. Yes, 05/05/2024 Family History Esophageal cancer: Mother. Primary malignant neoplasm of prostate: Father. Immunizations Vaccine Date Status influenza virus vaccine, inactivated 04/12/2024 Recorded pneumococcal 20-valent conjugate vaccine 04/04/2023 Recorded influenza virus vaccine, inactivated 03/02/2023 Recorded Normal [facility] Comment on above: Result Comment: Elec tronically Signed By: Arabella Mesa\.br\Date and Time Signed: 05/06/24 15:40 EST Reminderson 04-29-2024 Reminders Reminders - From: Arabella Mesa To: [facility] - Clinical; Sent: 04/29/2024 11:50:52 EST Show up: 04/29/2024 11:48:00 EST Subject: Ambulatory Reminder Due Date/Time: 04/30/2024 11:47:00 EST kidney function test results are much improved since discharge from hospital. 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 instruct her to not take lisinopril/hctz and lasix. The hospital discontinued these. Encourage her to monitor her blood pressure and swelling. notify me if BP becomes elevated or she starts to retain fluid. Results: Date Result Name Ind Value Ref Range 04/22/2024 11:49 Glucose Lvl 92 mg/dL (55 - 199) 04/22/2024 11:49 BUN ((H)) 44 mg/dL (5 - 21) 04/22/2024 11:49 Creatinine ((H)) 1.8 mg/dL (0.5 - 1.3) 04/22/2024 11:49 eGFR ((L)) 27 mL/min/1.73 m2 (>=59 - ) 04/22/2024 11:49 BUN/Creat Ratio ((H)) 24 (10 - 20) 04/22/2024 11:49 Sodium Lvl 139 mmol/L (135 - 145) 04/22/2024 11:49 Potassium Lvl 3.8 mmol/L (3.5 - 5.3) 04/22/2024 11:49 Chloride ((L)) 99 mmol/L (101 - 111) 04/22/2024 11:49 CO2 ((H)) 32 mmol/L (21 - 31) 04/22/2024 11:49 AGAP 12 mEq/L (6 - 16) 04/22/2024 11:49 Calcium Lvl 10.2 mg/dL (8.9 - 11.1) 04/22/2024 11:49 Alk Phos 66 Int._Unit/L (21 - 98) 04/22/2024 11:49 ALT 6 Int._Unit/L (6 - 46) 04/22/2024 11:49 AST 13 Int._Unit/L (5 - 43) 04/22/2024 11:49 Total Protein 7.2 gm/dL (6.0 - 7.8) 04/22/2024 11:49 Albumin Lvl 4.3 gm/dL (3.3 - 5.0) 04/22/2024 11:49 Globulin 2.9 gm/dL (1.4 - 4.0) 04/22/2024 11:49 A/G Ratio 1.5 (1.1 - 2.2) 04/22/2024 11:49 Bili Total 0.9 mg/dL (0.0 - 1.1) 04/22/2024 11:49 Chol 173 mg/dL (120 - 200) 04/22/2024 11:49 Trig 126 mg/dL ( - <=149) 04/22/2024 11:49 HDL 61 mg/dL 04/22/2024 11:49 LDL Direct 91 mg/dL ( - <=129) 04/22/2024 11:49 VLDL 25 mg/dL (7 - 40) 04/22/2024 11:49 TSH 1.42 mcIU/mL (0.34 - 5.60) 04/28/2024 11:22 Glucose Lvl 83 mg/dL (55 - 199) 04/28/2024 11:22 BUN 18 mg/dL (5 - 21) 04/28/2024 11:22 Creatinine 1.0 mg/dL (0.5 - 1.3) 04/28/2024 11:22 eGFR ((L)) 55 mL/min/1.73 m2 (>=59 - ) 04/28/2024 11:22 BUN/Creat Ratio 18 (10 - 20) 04/28/2024 11:22 Sodium Lvl 138 mmol/L (135 - 145) 04/28/2024 11:22 Potassium Lvl 4.0 mmol/L (3.5 - 5.3) 04/28/2024 11:22 Chloride 104 mmol/L (101 - 111) 04/28/2024 11:22 CO2 28 mmol/L (21 - 31) 04/28/2024 11:22 AGAP 10 mEq/L (6 - 16) 04/28/2024 11:22 Calcium Lvl 9.1 mg/dL (8.9 - 11.1) - From: Catherine Ward M.A. ([facility] - Clinical) To: Arabella Mesa; B - Clinical; Sent: 04/29/2024 15:43:16 EST Show up: 04/29/2024 15:41:00 EST Subject: RE: Ambulatory Reminder Lm on Vm to return our call to relay below message - From: Catherine Ward M.A. (B - Clinical) To: Arabella Mesa; Sent: 04/29/2024 15:56:27 EST Show up: 04/29/2024 15:49:00 EST Subject: RE: Ambulatory Reminder Notified patient of message below Normal [facility] Ambulatory Visit Summaryon 1 06-29-2023 Ambulatory Visit Summary Ambulatory Visit Summary CLAUDETTE LADD :1940 Visit Date:04/28/2024 Ambulatory Visit Instructions Your Diagnosis Multiple renal cysts JOSE CRUZ (acute kidney injury) Colitis BMI 28.0-28.9,adult Overweight (BMI 25.0-29.9) Non-smoker Your Care Team Attending Physician - Arabella Mesa Primary Care Physician - Arabella Mesa This Is Your Medications List alendronate (Fosamax 70 mg Tab) atorvastatin (atorvastatin 10 mg Tab) calcium-vitamin D (Citracal + D) cholecalciferol (Vitamin D3) ferrous sulfate furosemide (furosemide 20 mg Tab) hydrochlorothiazide- lisinopril (hydrochlorothiazide -lisinopril 25 mg-20 mg Tab) magnesium gluconate (magnesium gluconate 250 mg oral tablet) omeprazole (omeprazole 20 mg Cap-DR) potassium chloride (potassium chloride 20 mEq ER Tab) verapamil (verapamil 240 mg ER Tab) Procedures Performed Bilateral cataract surgery (2019), Surgery. Discharge Vitals Temperature (Tympanic) 36.3 ???C Heart Rate (Peripheral) 74 Respiratory Rate 18 Blood Pressure 126/82 Height 170 cm Height 67 in Weight 81 kg Weight 178.574 lb BMI 28.03 What to do next Scheduled Follow-Up Appointments Sunday 1:00 PM EDT Where: [place] [id number]- Medications What How Much When Why Instructions Unchanged alendronate (Fosamax 70 mg Tab) 1 Tablets By Mouth Every 7 days Osteopenia Unchanged atorvastatin (atorvastatin 10 mg Tab) 1 Tablets By Mouth Every day Unchanged calcium-vitamin D (Citracal + D) 1 tab By Mouth Every day Unchanged cholecalciferol (Vitamin D3) See instructions 5,000 iu daily Unchanged ferrous sulfate 65 Milligram By Mouth Every day Unchanged furosemide (furosemide 20 mg Tab) 1 Tablets By Mouth Every day Unchanged hydrochlorothiazide- lisinopril (hydrochlorothiazide -lisinopril 25 mg-20 mg Tab) 1 Tablets By Mouth Every day Oral, 0 Refill(s) Unchanged magnesium gluconate (magnesium gluconate 250 mg oral tablet) 1 Tablets By Mouth Every day Unchanged omeprazole (omeprazole 20 mg Cap-DR) 1 Capsules By Mouth Every day Unchanged potassium chloride (potassium chloride 20 mEq ER Tab) 1 Tablets By Mouth Every day Unchanged verapamil (verapamil 240 mg ER Tab) 1 Tablets By Mouth Every 12 hours Duration: 30 Days Allergies No Known Allergies Problems Ongoing - Any problem that you are currently receiving treatment for. JOSE CRUZ (acute kidney injury) BMI 28.0-28.9,adult Chronic kidney failure Colitis GERD (gastroesophageal reflux disease) Hyperlipidemia Hypertension Multiple renal cysts Osteopenia Post menopausal syndrome Wellness examination Patient Survey You may receive a survey via text or e-mail asking about your office visit. Please share your experience with us by completing your survey. We appreciate your feedback and thank you for choosing us for your care. Normal [facility] BMPon 04-28-2024 Anion gap [Moles/Vol] 10 mmol/L Normal 6-16 [facility] Comment on above: Performed By: #### 2 [id number] #### [facility] [address] [place] [address] Calcium [Mass/Vol] 9.1 mg/dL Normal 8.9-11.1 [facility] Comment on above: Performed By: #### 2 [id number] #### [facility] [address] [place] [address] Chloride [Moles/Vol] 104 mmol/L Normal 101-111 [facility] Comment on above: Performed By: #### 2 [id number] #### [facility] [address] [place] [address] CO2 [Moles/Vol] 28 mmol/L Normal 21-[address] [facility] Comment on above: Performed By: #### 2 [id number] #### [facility] [address] [place] [address] Creatinine [Mass/Vol] 1.0 mg/dL Normal 0.5-1.3 [facility] Comment on above: Performed By: #### 2 [id number] #### [facility] [address] [place] [address] Glucose [Mass/Vol] 83 mg/dL Normal 55-199 [facility] Comment on above: Performed By: #### 2 [id number] #### [facility] [address] [place] [address] Potassium [Moles/Vol] 4.0 mmol/L Normal 3.5-5.3 [facility] Comment on above: Performed By: #### 2 [id number] #### [facility] [address] [place] [address] Sodium [Moles/Vol] 138 mmol/L Normal 135-145 [facility] Comment on above: Performed By: #### 2 [id number] #### [facility] [address] [place] [address] Urea nitrogen [Mass/Vol] 18 mg/dL Normal 5-21 [facility] Comment on above: Performed By: #### 2 [id number] #### [facility] [address] [place] [address] Urea nitrogen/Creatinine [Mass ratio] 18 No Units Normal 10-20 [facility] Comment on above: Performed By: #### 2 [id number] #### [facility] [address] [place] [address] CHEMISTRYOrdered By: SYSTEM SYSTEM on 04-28-2024 Anion gap [Moles/Vol] 10 mmol/L Normal 6 - 16 mEq/L R emisol Chem Calcium [Mass/Vol] 9.1 mg/dL Normal 8.9 - 11. 1 mg/dL [facility] Chloride [Moles/Vol] 104 mmol/L Normal 101 - 1 11 mmol/L [facility] CO2 [Moles/Vol] 28 mmol/L Normal 21 - 31 mmol/L [facility] Creatinine [Mass/Vol] 1.0 mg/dL Normal 0.5 - 1.3 mg/dL [facility] eGFR 55 mL/min/1.73 m2 Low >=59mL/min /1. 73 m2 [facility] Glucose [Mass/Vol] 83 mg/dL Normal 55 - 199 mg/dL [facility] Potassium [Moles/Vol] 4.0 mmol/L Normal 3.5 - 5.3 mmol/L [facility] Sodium [Moles/Vol] 138 mmol/L Normal 135 - 145 mmol/L [facility] Urea nitrogen [Mass/Vol] 18 mg/dL Normal 5 - 21 mg/dL [facility] Urea nitrogen/Creatinine [Mass ratio] 18 mg/mg Normal 10 - 20 [facility] Family Medicine Office/Clini c Noteon 04-28-2024 Family Medicine Office/Clinic Note Family Medicine Office/Clinic Note Chief Complaint ER follow up HPI Staff Pt presents today for ER follow up. ER followup: Hospital: [facility] Visit date:04/25/24 Symptoms the patient presented with:blood in stool Admitted overnight. DC'd home with Amoxicillin. Stopped furosemide & Lisinopril/HCTZ therapy. Current concerns:Does have lab order from ER. Denies rectal bleeding since ER visit. History of Present Illness pt presents today for hospital follow up. Review of Systems PHQ Score Initial Depression Screen Score: 0 SCORE Physical Exam Vitals & Measurements T: 36.3 ???C(Tympanic) HR: 74(Peripheral) RR: 18 BP: 126/82 SpO2: 97% HT: 67 in HT: 170 cm WT: 81 kg WT: 178.574 lb BMI: 28.03 General: alert, no acute distress ENMT: oral mucosa moist, no pharyngeal erythema or exudate Cardiovascular: regular rate and rhythm, normal peripheral perfusion Respiratory: Lungs CTA, respirations non labored Extremities: no deformity, no trauma Neurological: oriented x 4, LOC appropriate for age, CN II-XII intact, motor strength equal & normal bilaterally, speech normal Assessment/Plan 1. 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 was treated for colitis. but on CT scan it was noted that she has multiple cysts on her left kidney. some are simple some are complex. radiologist recommended CT of abdomen with and without contrast for further evaluation. Ordered: Basic Metabolic Panel Body Mass Index (BMI) documented 3008F Current tobacco non-user 1036F Depression Screening Negative 3352F Discharge medications reconciled with current medications in outpatient record 1111F [facility] Referral Influenza immunization status assessed 1030F Lab Specimen Collect [id number] Medication list documented in medical record 1159F Most recent diastolic blood pressure 80-89 mm Hg 3079F Patient screen for fall risk: no falls in last year or 1 fall with no injury in last year 1101F Review of all meds by a prescribing practitioner or clinical pharmacist documented in EHR 1160F Systolic BP <130 mm Hg (Most Recent) 3074F 2. JOSE CRUZ (acute kidney injury) (N17.9: Acute kidney failure, unspecified) eGFR on admission was 16. On discharge it was 32. pt was instructed by hospitalist to hold lisinopril/HCTZ and lasix. she will remain off of those meds for now. Will drawn BMP in office today. BP is WNL today and no swelling noted on exam. Will send referral to nephrology. Dr. Alvarez is also her 's doctor, so she would like to be referred to him. Ordered: [facility] Ambulatory Referral Lab Specimen Collect [id number] 3. Colitis (K52.9: Noninfective gastroenteritis and colitis, unspecified) continues augmentin. is no longer having abdominal pain or rectal bleeding 4. BMI 28.0-28.9,adult (Z68.28: Body mass index [BMI] 28.0-28.9, adult) BMI education given Ordered: Basic Metabolic Panel [facility] [place] Ambulatory Referral 5. Overweight (BMI 25.0-29.9) (E66.3: Overweight) see above Ordered: Basic Metabolic Panel [facility] [place] Ambulatory Referral 6. Non-smoker (Z78.9: Other specified health status) continue not smoking Ordered: Basic Metabolic Panel [facility] [place] Ambulatory Referral Follow-up No qualifying data available Problem List/Past Medical History Ongoing JOSE CRUZ (acute kidney injury) BMI 28.0-28.9,adult Chronic kidney failure Colitis GERD (gastroesophageal reflux disease) Hyperlipidemia Hypertension Multiple renal cysts Osteopenia Post menopausal syndrome Wellness examination Historical [...] 20 mg= 1 tab(s), Oral, Daily, 3 refills, Not taking: as recommended by ER hydrochlorothiazide- lisinopril 25 mg-20 mg Tab, 1 tab(s), Oral, Daily, 3 refills, Not taking: as recommended by ER magnesium gluconate 250 mg oral tablet, 250 [...] Tobacco Use:. Cigarettes, Household tobacco concerns: No., 04/28/2024 Family History Esophageal cancer: (more content not included)... Normal [facility] Comment on above: Result Comment: Elec tronically Signed By: Arabella Mesa\.br\Date and Time Signed: 04/28/24 11:41 EST eGFRon 04-28-2024 eGFR 55 mL/min/1.73 m2 Low >=59 [facility] Comment on above: Performed By: #### 1 [id number] #### [facility] [address] [place] [id number] CHEMISTRYOrdered By: SYSTEM SYSTEM on 04-22-2024 Albumin [...] 04-22-2024 Albumin [Mass/Vol] 4.3 g/dL Normal 3.3-5.0 [facility] Comment on above: Performed By: #### 2 [id number] #### [facility] [address] [place] [address] Albumin/Globulin (S) [Mass conc ratio] 1.5 Normal 1.1-2.2 [facility] Comment on above: Performed By: #### 2 [id number] #### [facility] [address] [place] [address] ALP [Catalytic activity/Vol] 66 Int._Unit/L Normal 21-98 [facility] Comment on above: Performed By: #### 2 [id number] #### [facility] [address] [place] [address] ALT No additional P-5'-P [Catalytic activity/Vol] 6 Int._Unit/L Normal 6-46 [facility] Comment on above: Performed By: #### 2 [id number] #### [facility] [address] [place] [address] Anion gap [Moles/Vol] 12 mmol/L Normal 6-16 [facility] Comment on above: Performed By: #### 2 [id number] #### [facility] [address] [place] [address] AST [Catalytic activity/Vol] 13 Int._Unit/L Normal 5-43 [facility] Comment on above: Performed By: #### 2 [id number] #### [facility] [address] [place] [address] Bilirubin [Mass/Vol] 0.9 mg/dL Normal 0.0-1.1 [facility] Comment on above: Performed By: #### 2 [id number] #### [facility] [address] [place] [address] Calcium [Mass/Vol] 10.2 mg/dL Normal 8.9-11.1 [facility] Comment on above: Performed By: #### 2 [id number] #### [facility] [address] [place] [address] Chloride [Moles/Vol] 99 mmol/L Low 101-111 [facility] Comment on above: Performed By: #### 2 [id number] #### [facility] [address] [place] [address] CO2 [Moles/Vol] 32 mmol/L High 21-[address] [facility] Comment on above: Performed By: #### 2 [id number] #### [facility] [address] [place] [address] Creatinine [Mass/Vol] 1.8 mg/dL High 0.5-1.3 [facility] Comment on above: Performed By: #### 2 [id number] #### [facility] [address] [place] [address] Globulin (S) [Mass/Vol] 2.9 g/dL Normal 1.4-4.0 [facility] Comment on above: Performed By: #### 2 [id number] #### [facility] [address] [place] [address] Glucose [Mass/Vol] 92 mg/dL Normal 55-199 [facility] Comment on above: Performed By: #### 2 [id number] #### [facility] [address] [place] [address] Potassium [Moles/Vol] 3.8 mmol/L Normal 3.5-5.3 [facility] Comment on above: Performed By: #### 2 [id number] #### [facility] [address] [place] [address] Protein [Mass/Vol] 7.2 g/dL Normal 6.0-7.8 [facility] Comment on above: Performed By: #### 2 [id number] #### [facility] [address] [place] [address] Sodium [Moles/Vol] 139 mmol/L Normal 135-145 [facility] Comment on above: Performed By: #### 2 [id number] #### [facility] [address] [place] [address] Urea nitrogen [Mass/Vol] 44 mg/dL High 5-21 [facility] Comment on above: Performed By: #### 2 [id number] #### [facility] [address] [place] [address] Urea nitrogen/Creatinine [Mass ratio] 24 No Units High 10-20 [facility] Comment on above: Performed By: #### 2 [id number] #### [facility] [address] [place] [address] Lipid Panelon 04-22-2024 Cholesterol [Mass/Vol] 173 mg/dL Normal 120-200 [facility] Comment on above: Performed By: #### 2 [id number] #### [facility] [address] [place] [address] Cholesterol in HDL [Mass/Vol] 61 mg/dL Invalid Interpretation Code [facility] Comment on above: Result Comment: '>= 60 LOW RISK' '<= 40 HIGH RISK' Performed By: #### 2 [id number] #### [facility] [address] [place] [address] Cholesterol in LDL [Mass/Vol] 91 mg/dL Normal <=129 [facility] Comment on above: Performed By: #### 2 [id number] #### [facility] [address] [place] [address] Cholesterol in VLDL [Mass/Vol] 25 mg/dL Normal 7-40 [facility] Comment on above: Performed By: #### 2 [id number] #### [facility] [address] [place] [address] Triglyceride [Mass/Vol] 126 mg/dL Normal <=149 [facility] Comment on above: Performed By: #### 2 [id number] #### [facility] [address] [place] [address] TSHon 04-22-2024 TSH Qn 1.42 m[IU]/L Normal 0.34-5.60 [facility] Comment on above: Performed By: #### 2 [id number] #### [facility] [address] [place] [address] eGFRon 04-22-2024 eGFR 27 mL/min/1.73 m2 Low >=59 [facility] Comment on above: Performed By: #### 1 [id number] #### [facility] [address] [place] [address] [facility] 03-11-20 [facility]ly [facility] Case Information Case Priority: None Programs: -- Referral Source: Transfer Clerk Referral Reason: Care coordination Case Type: Transition [...] see tcm note Created By: Danilo Milan [facility] 02-26-20 [facility] Case Information Case Priority: None Programs: -- Referral Source: Transfer Clerk Referral Reason: Care coordination Case Type: Transition [...] see tcm note Created By: Danilo Milan [facility] Family Medicine Office/Clini c Noteon 02-19-2024 Family Medicine Office/Clinic Note Family Medicine Office/Clinic Note HPI Staff Claudette is a 83 year old female presenting with dc'd from [facility] for [facility] and HH has been ordered.... [...] pt presents today for TCM was at [facility] for rehab after a fall causing a [...] her right ankle. was in rehab at [facility] until 2 days ago. pt is doing well and follows up with surgeon on February 28. Dr. Deleon. RTC 6 months Ordered: [facility] 7 day disch 68091 2. Osteopenia (M85.80: Other specified disorders of bone density and structure, unspecified site) pt needs refill on fosamax Ordered: alendronate, 70 mg = 1 tab(s), Oral, q7day, # 12 tab(s), Refills(s) 3, Pharmacy: [facility]/pharmacy #[id number], 169.3, cm, 06/19/23 13:14:00 EST, Height/Length Dosing, 81.1, kg, 06/19/23 13:14:00 EST, Weight Dosing alendronate, 70 mg = 1 tab(s), Oral, q7day, # 12 tab(s), Refills(s) 3, [facility], 170, cm, 02/19/24 10:45:00 EDT, [...] 3 ref (more content not included)... Normal [facility] Comment on above: Result Comment: Elec tronically Signed By: Arabella Mesa\.br\Date and Time Signed: 02/19/24 11:51 EDT [facility] 02-15-20 [facility] Case Information Case Priority: None Programs: -- Referral Source: Transfer Clerk Referral Reason: Care coordination Case Type: Transition [...] Date: 01/10/2024 from [facility] to [facility] Date of Discharge: 02/13/24 Follow-up appointment scheduled? [...] yourself? yes Do you have Home Health? [facility] Home Health will be following, per pt they have not been to home at this time Called patient for initial Transitional Care Management Program call. Readmission risk not available. Patient was discharged from [facility] rehab for fractured right ankle. Patient was admitted to [facility] 01/07/2024 and d/c on 01/09 with dx of: HTN, fall from standing, displaced trimalleolar fracture of right ankle. Patient underwent ORIF 01/09/24. There were no medication changes made upon d/c from [facility]. Patient can not recall if there were any changes while at [facility]. Medication reconciliation will need to be completed [...] PT, noting that therapy received at [facility] 'went good.' She denies any pain and [...] was obtained from the patient as [facility] d/c has not been received. [facility] hospital records are present in chart. Communication Events Date: February 15, 2024 Method: Phone call Type: Outbound Duration (min): 19 Outcome: Case discussion Contact Type: Patient Contact Name: CLAUDETTE LADD Notes: TCM#1- see tcm note Created By: Danilo Milan [facility] Family Medicine Office/Clini c Noteon 12-26-2023 Family Medicine Office/Clinic Note Family Medicine Office/Clinic Note [facility] Staff Claudette is a 83 year old [...] influenza virus vaccine, inactivated 03/02/2023 Recorded Normal [facility] Comment on above: Result Comment: Elec [...] Pressure and Older Adults from the [employer] provided. Will continue to f/u [...] of fractures. (more content not included)... Normal [facility] Comment on above: Result Comment: Elec tronically Signed By: Arabella Mesa\.br\Date and Time Signed: 12/14/23 12:54 EDT\.br\Electronically Co-Signed By: Blanca Rosas\.br\Date and Time Co-Signed: 12/14/23 11:13 EDT Dexa Scanson 07-05-2023 Dexa Scans [id number] #1.00TIFF Normal [facility] Dexa Scans [id number] #1.00TIFF [facility] Transfer Inon 06-21-2023 Transfer In [id number] #1.00TIFF [facility] Ambulatory Visit Summaryon 0 06-19-2023 Ambulatory [...] you for choosing us for your care. [facility] Auth for Release of Medical Recordson 06-19-2023 Auth for Release of Medical Records [id number] #1.00TIFF Jordy Wylie [facility] Family Medicine Office/Clini c Noteon 06-19-2023 Family Medicine Office/Clinic Note HPI Staff Claudette is a 82 year old female presenting to establish care Establish Care: History: Any previous diagnosis: HTN, Gerd, edema BLE History of seeing any specialist: [facility] When was your last doctors visit: Last provider: Alisha Grant Any recent labs: 03/2023 [facility](labs [...] release of info for previous PCP in [place]. Dexa scan ordered to be done at [...] Daily, # 90 tab(s), Refills(s) 3, [id number] 169.3, cm, 06/19/23 13:14:00 EST, Height/Length Dosing, 81.1, kg, 06/19/23 13:14:00 EST, Weight Dosing furosemide, 20 mg = 1 tab(s), Oral, Daily, # 90 tab(s), Refills(s) 3, [id number], 169.3, cm, 06/19/23 13:14:00 EST, Height/Length Dosing, 81.1, kg, 06/19/23 13:14:00 EST, Weight Dosing hydrochlorothiazide- lisinopril, 1 tab(s), Oral, Daily, 90 tab(s), Refill(s) 3, Oral, 0 Refill(s), [facility]/pharmacy #[id number], 169.3, cm, 06/19/23 13:14:00 EST, Height/Length Dosing, 81.1, kg, 06/19/23 13:14:00 EST, Weight Dosing omeprazole, 20 mg = 1 cap(s), Oral, Daily, # 90 cap(s), Refills(s) 3, Pharmacy: [facility]/pharmacy #[id number], 169.3, cm, 06/19/23 13:14:00 EST, Height/Length Dosing, 81.1, kg, 06/19/23 13:14:00 EST, Weight Dosing potassium chloride, 20 mEq = 1 tab(s), Oral, Daily, # 90 tab(s), Refills(s) 3, Pharmacy: [facility]/pharmacy #[id number], 169.3, cm, 06/19/23 13:14:00 EST, Height/Length Dosing, 81.1, kg, 06/19/23 13:14:00 EST, Weight Dosing verapamil, 240 mg = 1 tab(s), Oral, q12hr, # 180 tab(s), Refills(s) 3, Pharmacy: [facility]/pharmacy #[id number], 169.3, cm, 06/19/23 13:14:00 EST, Height/Length [...] influenza virus vaccine, inactivated 03/02/2023 Recorded Normal [facility] Comment on above: Result Comment: Elec tronically Signed By: Arabella Mesa\.br\Date and Time Signed: 06/19/23 14:21 EST Physician Orderon 06-19-2023 Physician Order [id number]# 1.00TIFF Normal [facility] Vital Signs Date Time Vital Sign Value Performing Clinician Facility 04-04-2023 10:15-0500 Body height 168.91 cm Alisha Bergman [facility] Other 04-04-2023 10:15-0500 Body mass index (BMI) [Ratio] 28.12 kg/m2 Alisha Bergman Other [facility] Other 04-04-2023 10:15-0500 Body weight 80.24 kg Alisha Bergman Other [facility] Other 04-04-2023 10:15-0500 Diastolic blood pressure 68 mm[Hg] Alisha Bergman Other [facility] Other 04-04-2023 10:15-0500 Respiratory rate 18 /min Alisha Bergman Other [facility] Other 04-04-2023 10:15-0500 SaO2% (BldA) [Mass fraction] 98 % Alisha Bergman Other [facility] Other 04-04-2023 10:15-0500 Systolic blood pressure 130 mm[Hg] Alisha Bergman Other [facility] Other Encounters Encounter Date Encounter Type Care Provider Facility Start: 12-15-2024 ambulatory Arabella L Candace Facility: [facility] [place] Start: 05-29-2024 ambulatory MD KOFI RAMOS Facility: [facility] Start: 05-26-2024 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 Arabella L Candace Facil ity:[facility] Start: 05-05-2024 End: 05-05-2024 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 Arabella L Candace Facility:[facility] [place] [facility] Start: 05-02-2024 ambulatory MD KOFI RAMOS Facility: [place] Start: 04-28-2024 End: 04-28-2024 Lab Drop off Arabella L Candace [facility] Start: 04-28-2024 End: 04-28-2024 ambulatory Arabella L Candace Facility:[facility] [place] [facility] Start: 04-22-2024 End: 04-22-2024 Lab Drop off Arabella L Candace [facility] Start: 04-22-2024 End: 04-22-2024 ambulatory Arabella L Candace Facility:[facility] [place] [facility] Start: 02-19-2024 End: 02-19-2024 ambulatory Arabella L Candace Facility:[facility] [place] [facility] Start: 02-15-2024 End: 03-17-2024 ambulatory Arabella L Candace Facility:[id number] Start: 12-26-2023 End: 12-26-2023 ambulatory Arabella L Candace Facility:[facility] [place] [facility] Start: 12-13-2023 End: 12-13-2023 ambulatory Arabella L Candace Facility:[facility] [place] [facility] Start: 06-25-2023 End: 06-25-2023 ambulatory Alisha Bergman [facility] Other Start: 06-25-2023 Telephone encounter Alisha Bergman [facility] Start: 06-19-2023 ambulatory Arabella Candace Facility:[facility] [place] Start: 06-19-2023 End: 06-19-2023 ambulatory Arabella L Candace Facility:[facility] [place] [facility] Start: 06-15-2023 End: 06-15-2023 ambulatory Alisha Bergman [facility] Other Start: 06-15-2023 Telephone encounter Alisha Bergman [facility] Start: 04-04-2023 End: 04-04-2023 ambulatory Alisha Bergman [facility] Other Start: 04-04-2023 Office outpatient vi sit 25 minutes Alisha Bergman [facility] [place] Start: 02-09-2023 End: 02-09-2023 ambulatory Alishacarl Bergman [facility] Other Start: 02-09-2023 Telephone encounter Alisha Bergman [facility] Procedures Date Procedure Procedure Detail Performing Clinician Start: 05-28-2019 Bilateral cataract surgery Arabella Candace Surgical procedure Arabella Schw ab Immunizations Immunization Date Immunization Notes Care Provider Fa [facility] 04-12-2024 influenza virus vaccine, unspecified formulation Arabella Candace [facility] 04-04-2023 Prevnar 20 Alishacarl Bergman Other [facility] 03-02-2023 influenza virus vaccine, unspecified formulation Arabella Candace [facility] 02-25-2022 influenza, seasonal, injectable Alishacarl Bergman [facility] Other Payers Date Payer Category Payer Unknown [id number] 1938 Unknown [id number] 2.16.8 [id number] 1938 Unknown [id number] 2.16.8 [id number] 1938 Unknown [id number] 2.16.8 [id number] 1938 Unknown [id number] 2.16.8 40.1.381675.3.579.2.72 1938 Unknown [id number] 2.16.8 [id number] 1938 Unknown [id number] 2.16.8 40.1.796483.3.579.2.727 1938 Unknown [id number] 2.16.8 [id number] 1938 Unknown [id number] 2.16.8 [id number] 1938 Unknown [id number] 2.16.8 40.1.881672.3.579.2.72 1938 Unknown [id number] 2.16.8 40.1.879860.3.579.2.72 1938 Unknown [id number] 2.16.8 [id number] 1938 Unknown [id number] 2.16.8 [id number] Medicare [id number] 2.1 [id number] Medicare [id number] 2.1 [id number] Medicare [id number] 2.1 [id number] Social History Date Type Detail Facility Sex Assigned At [facility] Start: 02-19-2024 End: 04-28-2024 Tobacco smoking status Never smoked tobacco (finding) [facility] Comment on above: denies use Tobacco smoking status Never Fis[facility] Comment on above: denies use Clinical Note [...] Recorded influenza virus vaccine, inactivated 03/02/2023 Recorded [facility] Clinical Note 12-13-2023 Note Date & Type [...] if: ? Yo (more content not included)... [facility] Evaluation note 04-04-2023 Note Date & [...] continue Mar, Immunization due (ICD-10 - Z23) [facility] Other Evaluation + Plan note Note Date & Type Note Facility Evaluation + Plan note Future Appointments Appointment Date:12/15/2024 01:00:00 PM Scheduled Provider: Location:[facility] [place] Appointment Type:FM Medicare Wellness Subsequent [facility] Evaluation note Note Date & Type Note Facility Evaluation note No Information [facility] Other History general Narrative - Reported Note Date & Type Note Facility History general Narrative - Reported Type Medical History HTN Surgical History twisted colon sx 2015 Surgical History tonsillectomy Hospitalization History see above Hospitalization History child [facility] Other Hospital course Narrative Note Date & Type Note Facility Hospital course Narrative No data available for this section [facility] Hospital Discharge instructions Note Date & Type Note Facility Hospital Discharge instructions No data available for this section [facility] Progress note Note Date & Type Note Facility Progress note No data available for this section [facility] Reason for Referral Reason right hip pain Diagnosis 1 Right hip pain (M25. 551) Referral Organization [employer] [facility] Referring Provider First Name Alisha Referring Provider Last Name Pacheco Referring Provider Specialty Family Medi cine Referred [...] content) Personnel Name: Arabella Mesa Address: Address: [address] [place] [address]- Personnel Name: Arabella Mesa Address: Address: [address] [place] [address]- INFORMATION SOURCE (unrecogn ized section and content) DATE CREATED AUTHOR 04/24/2024 [place] [employer] [facility] DATE CREATED AUTHOR AUTHOR'S ORGANIZ ATION 04/25/2024 [facility] [employer] [facility] DATE CREATED AUTHOR AUTHOR'S ORGANIZ ATION 04/30/2024 [facility] [employer] [facility] DATE CREATED AUTHOR AUTHOR'S ORGANIZ ATION 05/07/2024 [facility]OR[facility] PERTAINING TO PATIENTS WHO [...] BE BASED ON THE PRIMARY CLINICAL RECORDS. [facility] [employer] [facility]. provides no warranty or guarantee of the accuracy or completeness of information in this document.
--- OUTSIDE RECORDS SUMMARY | 2024-05-14 13:45 | XMS_ITS | CCD ---
Author Organization [facility] Care Team Providers Care Noodle Press Operator Name Role Phone PachecoAlisha Unavailable CandaceArabella Primary [...] MD KOFI RAMOS Attending Unav ailable Candace, HEARING AND SPEECH ASSISTANT Arabella Donnelly Attending Unavailable Candace, HEARING AND SPEECH ASSISTANT Arabella Donnelly Attending Unavailable Candace, HEARING AND SPEECH ASSISTANT Arabella Donnelly Attending Unavailable Candace, HEARING AND SPEECH ASSISTANT Arabella Donnelly Admitting Unavailable Medications Current Medications Medication Drug Class(es) Dates Sig (Normalized) Sig (Original) alendronic acid 70 mg oral tablet (2 sources) Bisphosphonate Start: 4 Fosamax 70 mg Tab 70 mg = 1 tab(s), Oral, q7day, # 12 tab(s), Refills(s) 3, Pharmacy: [facility], 170, cm, 02/19/24 10:45:00 [...] Daily, # 90 tab(s), Refills(s) 3, Pharmacy: [facility], 169.3, cm, 06/19/23 13:14:00 [...] Daily, # 90 tab(s), Refills(s) 3, Pharmacy: [facility], 169.3, cm, 06/19/23 13:14:00 [...] 90 tab(s), Refill(s) 3, Oral, 0 Refill(s), [facility], 169.3, cm, 06/19/23 13:14:00 [...] Daily, # 90 cap(s), Refills(s) 3, Pharmacy: [facility], 169.3, cm, 06/19/23 13:14:00 [...] day(s), # 60 tab(s), Refills(s) 0, Pharmacy: [facility], 170, cm, 02/19/24 10:45:00 [...] Daily, # 90 tab(s), Refills(s) 3, Pharmacy: [facility], 169.3, cm, 06/19/23 13:14:00 [...] & lisinopril/HCTZ were DC'd at time of [facility] discharge. 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 [...] virus vaccine, inactivated 03/02/2023 Recorded Normal [facility] Comment on above: Result Comment: Elec tronically Signed By: Arabella Mesa\.br\Date and Time Signed: 05/06/24 15:40 EST Reminderson 04-29-2024 Reminders Reminders - From: Arabella Mesa To: [facility] - Clinical; Sent: 04/29/2024 11:50:52 EST Show up: 04/29/2024 11:48:00 EST Subject: Ambulatory Reminder Due Date/Time: 04/30/2024 11:47:00 EST kidney function test results are much improved since discharge from hospital. I still want her to see foster care social worker to evaluate the cysts. instruct her to [...] Reminder Notified patient of message below Normal [facility] Ambulatory Visit Summaryon 1 06-29-2023 Ambulatory Visit [...] Follow-Up Appointments Sunday 1:00 PM EDT Where: [place] [id number]- Medications What How Much When Why Instructions [...] for choosing us for your care. Normal [facility] BMPon 04-28-2024 Anion gap [Moles/Vol] 10 mmol/L Normal 6-16 [facility] Comment on above: Performed By: #### 2 [id number] #### [facility] [address] [place] [address] Calcium [Mass/Vol] 9.1 mg/dL Normal 8.9-11.1 [facility] Comment on above: Performed By: #### 2 [id number] #### [facility] [address] [place] [address] Chloride [Moles/Vol] 104 mmol/L Normal 101-111 [facility] Comment on above: Performed By: #### 2 [id number] #### [facility] [address] [place] [address] CO2 [Moles/Vol] 28 mmol/L Normal 21-31 [facility] Comment on above: Performed By: #### 2 [id number] #### [facility] [address] [place] [address] Creatinine [Mass/Vol] 1.0 mg/dL Normal 0.5-1.3 [facility] Comment on above: Performed By: #### 2 [id number] #### [facility] [address] [place] [address] Glucose [Mass/Vol] 83 mg/dL Normal 55-199 [facility] Comment on above: Performed By: #### 2 [id number] #### [facility] [address] [place] [address] Potassium [Moles/Vol] 4.0 mmol/L Normal 3.5-5.3 [facility] Comment on above: Performed By: #### 2 [id number] #### [facility] [address] [place] [address] Sodium [Moles/Vol] 138 mmol/L Normal 135-145 [facility] Comment on above: Performed By: #### 2 [id number] #### [facility] [address] [place] [address] Urea nitrogen [Mass/Vol] 18 mg/dL Normal 5-21 [facility] Comment on above: Performed By: #### 2 [id number] #### [facility] [address] [place] [address] Urea nitrogen/Creatinine [Mass ratio] 18 No Units Normal 10-20 [facility] Comment on above: Performed By: #### 2 [id number] #### [facility] [address] [place] [address] CHEMISTRYOrdered By: SYSTEM SYSTEM on 04-28-2024 Anion [...] for ER follow up. ER followup: Hospital: [facility] Visit date:04/25/24 Symptoms the patient presented with:blood [...] with current medications in outpatient record [id number] [facility] Internal Ambulatory Referral Influenza immunization status assessed 1030F Lab Specimen Collect [id number] Medication list documented in medical record [id number] [...] like to be referred to him. Ordered: [facility] Internal Ambulatory Referral Lab Specimen Collect [id number] 3. Colitis (K52.9: Noninfective gastroenteritis and colitis, unspecified) continues augmentin. is no longer having abdominal pain or rectal bleeding 4. BMI 28.0-28.9,adult (Z68.28: Body mass index [BMI] 28.0-28.9, adult) BMI education given Ordered: Basic Metabolic Panel [facility] Internal Ambulatory Referral 5. Overweight (BMI 25.0-29.9) (E66.3: Overweight) see above Ordered: Basic Metabolic Panel [facility] Internal Ambulatory Referral 6. Non-smoker (Z78.9: Other specified health status) continue not smoking Ordered: Basic Metabolic Panel [facility] Internal Ambulatory Referral Follow-up No qualifying data [...] Esophageal cancer: (more content not included)... Normal [facility] Comment on above: Result Comment: Elec tronically Signed By: Arabella Mesa\.br\Date and Time Signed: 04/28/24 11:41 EST eGFRon 04-28-2024 eGFR 55 mL/min/1.73 m2 Low >=59 [facility] Comment on above: Performed By: #### 1 [id number] #### [facility] [address] [place] [id number] CHEMISTRYOrdered By: SYSTEM SYSTEM on 04-22-2024 Albumin [...] 04-22-2024 Albumin [Mass/Vol] 4.3 g/dL Normal 3.3-5.0 [facility] Comment on above: Performed By: #### 2 [id number] #### [facility] [address] [place] [address] Albumin/Globulin (S) [Mass conc ratio] 1.5 Normal 1.1-2.2 [facility] Comment on above: Performed By: #### 2 [id number] #### [facility] [address] [place] [address] ALP [Catalytic activity/Vol] 66 Int._Unit/L Normal 21-98 [facility] Comment on above: Performed By: #### 2 [id number] #### [facility] [address] [place] [address] ALT No additional P-5'-P [Catalytic activity/Vol] 6 Int._Unit/L Normal 6-46 [facility] Comment on above: Performed By: #### 2 [id number] #### [facility] [address] [place] [address] Anion gap [Moles/Vol] 12 mmol/L Normal 6-16 [facility] Comment on above: Performed By: #### 2 [id number] #### [facility] [address] [place] [address] AST [Catalytic activity/Vol] 13 Int._Unit/L Normal 5-43 [facility] Comment on above: Performed By: #### 2 [id number] #### [facility] [address] [place] [address] Bilirubin [Mass/Vol] 0.9 mg/dL Normal 0.0-1.1 [facility] Comment on above: Performed By: #### 2 [id number] #### [facility] [address] [place] [address] Calcium [Mass/Vol] 10.2 mg/dL Normal 8.9-11.1 [facility] Comment on above: Performed By: #### 2 161810 #### [facility] [address] [place] [address] Chloride [Moles/Vol] 99 mmol/L Low 101-111 [facility] Comment on above: Performed By: #### 2 [id number] #### [facility] [address] [place] [address] CO2 [Moles/Vol] 32 mmol/L High 21-31 [facility] Comment on above: Performed By: #### 2 [id number] #### [facility] [address] [place] [address] Creatinine [Mass/Vol] 1.8 mg/dL High 0.5-1.3 [facility] Comment on above: Performed By: #### 2 780986 #### [facility] [address] [place] [address] Globulin (S) [Mass/Vol] 2.9 g/dL Normal 1.4-4.0 [facility] Comment on above: Performed By: #### 2 567171 #### [facility] [address] [place] [address] Glucose [Mass/Vol] 92 mg/dL Normal 55-199 [facility] Comment on above: Performed By: #### 2 [id number] #### [facility] [address] [place] [address] Potassium [Moles/Vol] 3.8 mmol/L Normal 3.5-5.3 [facility] Comment on above: Performed By: #### 2 977709 #### [facility] [address] [place] [address] Protein [Mass/Vol] 7.2 g/dL Normal 6.0-7.8 [facility] Comment on above: Performed By: #### 2 653982 #### [facility] [address] [place] [address] Sodium [Moles/Vol] 139 mmol/L Normal 135-145 [facility] Comment on above: Performed By: #### 2 [id number] #### [facility] [address] [place] [address] Urea nitrogen [Mass/Vol] 44 mg/dL High 5-21 [facility] Comment on above: Performed By: #### 2 [id number] #### [facility] [address] [place] [address] Urea nitrogen/Creatinine [Mass ratio] 24 No Units High 10-20 [facility] Comment on above: Performed By: #### 2 189065 #### [facility] [address] [place] [address] Lipid Panelon 04-22-2024 Cholesterol [Mass/Vol] 173 mg/dL Normal 120-200 [facility] Comment on above: Performed By: #### 2 [id number] #### [facility] [address] [place] [address] Cholesterol in HDL [Mass/Vol] 61 mg/dL Invalid Interpretation Code [facility] Comment on above: Result Comment: '>= 60 LOW RISK' '<= 40 HIGH RISK' Performed By: #### 2 [id number] #### [facility] [address] [place] [address] Cholesterol in LDL [Mass/Vol] 91 mg/dL Normal <=129 [facility] Comment on above: Performed By: #### 2 [id number] #### [facility] [address] [place] [address] Cholesterol in VLDL [Mass/Vol] 25 mg/dL Normal 7-40 [facility] Comment on above: Performed By: #### 2 083025 #### [facility] [address] [place] [address] Triglyceride [Mass/Vol] 126 mg/dL Normal <=149 [facility] Comment on above: Performed By: #### 2 172352 #### [facility] [address] [place] [address] TSHon 04-22-2024 TSH Qn 1.42 m[IU]/L Normal 0.34-5.60 [facility] Comment on above: Performed By: #### 2 [id number] #### [facility] [address] [place] [address] eGFRon 04-22-2024 eGFR 27 mL/min/1.73 m2 Low >=59 [facility] Comment on above: Performed By: #### 1 [id number] #### [facility] [address] [place] [address] [facility] 03-11-20 [facility] Case Information Case Priority: None Programs: -- Referral Source: Gamma Ray Operator Referral Reason: Care coordination Case Type: Transition [...] see tcm note Created By: Danilo Milan [facility] 02-26-20 [facility] Case Information Case Priority: None Programs: -- Referral Source: Gamma [employer] Operator Referral Reason: Care coordination Case Type: Transition [...] see tcm note Created By: Danilo Milan [facility] Family Medicine Office/Clini c Noteon 02-19-2024 Family Medicine Office/Clinic Note Family Medicine Office/Clinic Note HPI Staff Claudette is a 83 year old female presenting with dc'd from the [place] for rehab and HH has been ordered.... She has not heard anything from them yet ER followup: Hospital: [facility] ( Records are being faxed) Visit date: 01/07/24 Symptoms the patient presented with: fall and fractured right ankle Current concerns: Xrays showed 2 breaks in her her ankle Dr. Deleon did her surgery on her ankle next appt in February 28 History of Present Illness pt presents today for TCM was at [facility] for rehab after a fall causing a [...] her right ankle. was in rehab at [facility] until 2 days ago. pt is doing well and follows up with surgeon on February 28. Dr. Deleon. RTC 6 months Ordered: [facility] 7 day disch [id number] 2. Osteopenia (M85.80: Other specified disorders of bone density and structure, unspecified site) pt needs refill on fosamax Ordered: alendronate, 70 mg = 1 tab(s), Oral, q7day, # 12 tab(s), Refills(s) 3, Pharmacy: [facility]/pharmacy #[id number], 169.3, cm, 06/19/23 13:14:00 EST, Height/Length Dosing, 81.1, kg, 06/19/23 13:14:00 EST, Weight Dosing alendronate, 70 mg = 1 tab(s), Oral, q7day, # 12 tab(s), Refills(s) 3, [facility], [facility], cm, 02/19/24 10:45:00 [...] 3 ref (more content not included)... Normal [facility] Comment on above: Result Comment: Elec tronically Signed By: Arabella Mesa\.br\Date and Time Signed: 02/19/24 11:51 EDT [facility] 02-15-20 [facility] Case Information Case Priority: None Programs: -- Referral Source: Gamma [employer] Operator Referral Reason: Care coordination Case Type: Transition [...] Plan Progress Note Admit Date: 01/10/2024 from [facility] to [facility] Date of Discharge: 02/13/24 Follow-up appointment scheduled? [...] not available. Patient was discharged from [facility] [place] following rehab for fractured right ankle. Patient was admitted to [facility] 01/07/2024 and d/c on 01/09 with dx of: HTN, fall from standing, displaced trimalleolar fracture of right ankle. Patient underwent ORIF 01/09/24. There were no medication changes made upon d/c from [facility]. Patient can not recall if there were any changes while at [facility]. Medication reconciliation will need to be completed TCM f/u. Patient states she is doing 'pretty good.' States she is glad to be home and doesn't want to go any where for a while. Patient denies any dizziness. Denies any further falls since [facility] d/c. Patient states she is getting around really good with her 'cart (walker).' Patient notes she does not believe she needs any further PT, noting that therapy received at [facility] 'went good.' She denies any pain and [...] was obtained from the patient as [facility] d/c has not been received. [facility] hospital records are present in chart. Communication Events Date: February 15, 2024 Method: Phone call Type: Outbound Duration (min): 19 Outcome: Case discussion Contact Type: Patient Contact Name: CLAUDETTE LADD Notes: TCM#1- see tcm note Created By: Danilo Milan [facility] Family Medicine Office/Clini c Noteon 12-26-2023 Family Medicine Office/Clinic Note Family Medicine Office/Clinic Note [facility] Staff Claudette is a 83 year [...] influenza virus vaccine, inactivated 03/02/2023 Recorded Normal [facility] Comment on above: Result Comment: Elec [...] Pressure and Older Adults from the [employer] [place] [employer] provided. Will continue to f/u [...] of fractures. (more content not included)... Normal [facility] Comment on above: Result Comment: Elec tronically Signed By: Arabella Mesa\.br\Date and Time Signed: 12/14/23 12:54 EDT\.br\Electronically Co-Signed By: Blanca Rosas\.br\Date and Time Co-Signed: 12/14/23 11:13 EDT Dexa Scanson 07-05-2023 Dexa Scans [id number] #1.00TIFF Normal [facility] Dexa Scans [id number] #1.00TIFF [facility] Transfer Inon 06-21-2023 Transfer In [id number] #1.00TIFF [facility] Ambulatory Visit Summaryon 0 06-19-2023 Ambulatory Visit [...] you for choosing us for your care. [facility] Auth for Release of Medical Recordson 06-19-2023 Auth for Release of Medical Records [id number] #1.00TIFF [facility] Family Medicine Office/Clini c Noteon 06-19-2023 Family Medicine Office/Clinic Note HPI Staff Claudette is a 82 year old female presenting to establish care Establish Care: History: Any previous diagnosis: HTN, Gerd, edema BLE History of seeing any specialist: [facility] When was your last doctors visit: Last provider: Alisha Grant Any recent labs: 03/2023 [facility](labs requested) Health Maintenance UTD: Colonoscopy: aged out Mammogram: aged out Pelvic/Pap: aged out Acute: Current issues/complaints: pt needs refills on all medications. History of Present Illness pt presents today for annual wellness visit. needs refills on all meds. labs done at [facility] in March. Review of Systems PHQ Score [...] release of info for previous PCP in [place]. Dexa scan ordered to be done at [facility]. RTC 6 months 2. Hypertension (I10: Essential [...] Daily, # 90 tab(s), Refills(s) 3, [id number].3, cm, 06/19/23 13:14:00 EST, Height/Length Dosing, 81.1, kg, 06/19/23 13:14:00 EST, Weight Dosing furosemide, 20 mg = 1 tab(s), Oral, Daily, # 90 tab(s), Refills(s) 3, [id number], 169.3, cm, 06/19/23 13:14:00 EST, Height/Length Dosing, 81.1, kg, 06/19/23 13:14:00 EST, Weight Dosing hydrochlorothiazide- lisinopril, 1 tab(s), Oral, Daily, 90 tab(s), Refill(s) 3, Oral, 0 Refill(s), [facility]/pharmacy #[id number], 169.3, cm, 06/19/23 13:14:00 EST, Height/Length Dosing, 81.1, kg, 06/19/23 13:14:00 EST, Weight Dosing omeprazole, 20 mg = 1 cap(s), Oral, Daily, # 90 cap(s), Refills(s) 3, Pharmacy: [facility]/pharmacy #[id number], 169.3, cm, 06/19/23 13:14:00 EST, Height/Length Dosing, 81.1, kg, 06/19/23 13:14:00 EST, Weight Dosing potassium chloride, 20 mEq = 1 tab(s), Oral, Daily, # 90 tab(s), Refills(s) 3, Pharmacy: [facility]/pharmacy #[id number], 169.3, cm, 06/19/23 13:14:00 EST, Height/Length Dosing, 81.1, kg, 06/19/23 13:14:00 EST, Weight Dosing verapamil, 240 mg = 1 tab(s), Oral, q12hr, # 180 tab(s), Refills(s) 3, Pharmacy: [facility]/pharmacy #[id number], 169.3, cm, 06/19/23 13:14:00 EST, Height/Length [...] influenza virus vaccine, inactivated 03/02/2023 Recorded Normal [facility] Comment on above: Result Comment: Elec tronically Signed By: Arabella Mesa\.br\Date and Time Signed: 06/19/23 14:21 EST Physician Orderon 06-19-2023 Physician Order [id number]# 1.00TIFF Normal [facility] Vital Signs Date Time Vital Sign Value Performing Clinician Facility 04-04-2023 10:15-0500 Body height 168.91 cm Alisha Bergman Other [facility] Other 04-04-2023 10:15-0500 Body mass index (BMI) [Ratio] 28.12 kg/m2 Alisha Bergman Other [facility] Other 04-04-2023 10:15-0500 Body weight 80.24 kg Alisha Bergman Other [facility] Other 04-04-2023 10:15-0500 Diastolic blood pressure 68 mm[Hg] Alisha Bergman Other [facility] Other 04-04-2023 10:15-0500 Respiratory rate 18 /min Alisha Bergman Other [facility] Other 04-04-2023 10:15-0500 SaO2% (BldA) [Mass fraction] 98 % Alisha Bergman Other [facility] Other 04-04-2023 10:15-0500 Systolic blood pressure 130 mm[Hg] Alisha Bergman Other [facility] Other Encounters Encounter Date Encounter Type Care Provider Facility Start: 12-15-2024 ambulatory Arabella L Candace Facility: [facility] Start: 05-29-2024 ambulatory MD KOFI RAMOS Facility: [place] Start: 05-26-2024 ambulatory HEARING AND SPEECH ASSISTANT Arabella L Candace Facil ity:[facility] Start: 05-05-2024 End: 05-05-2024 ambulatory HEARING AND SPEECH ASSISTANT Arabella L Candace Facility:[facility] [place] Start: 05-02-2024 ambulatory MD KOFI RAMOS Facility: [place] Start: 04-28-2024 End: 04-28-2024 Lab Drop off Arabella L Candace [facility] Start: 04-28-2024 End: 04-28-2024 ambulatory Arabella L Candace [facility] [place] Start: 04-22-2024 End: 04-22-2024 Lab Drop off Arabella L Candace [facility] Start: 04-22-2024 End: 04-22-2024 ambulatory Arabella L Candace Facility:[facility] [place] Start: 02-19-2024 End: 02-19-2024 ambulatory Arabella L Candace Facility:[facility] [place] [facility] Start: 02-15-2024 End: 03-17-2024 ambulatory Arabella L Candace Facility:[id number] Start: 12-26-2023 End: 12-26-2023 ambulatory Arabella L Candace Facility:[facility] [place] [facility] Start: 12-13-2023 End: 12-13-2023 ambulatory Arabella L Candace Facility:[facility] [place] Start: 06-25-2023 End: 06-25-2023 ambulatory Alisha Bergman Other [facility] Other Start: 06-25-2023 Telephone encounter Alisha Bergman [facility] Start: 06-19-2023 ambulatory Arabella Candace Facility:[facility] [place] Start: 06-19-2023 End: 06-19-2023 ambulatory Arabella L Candace Facility:[facility] [place] Start: 06-15-2023 End: 06-15-2023 ambulatory Alisha Bergman Other [facility] Other Start: 06-15-2023 Telephone encounter Alisha Bergman [facility] Start: 04-04-2023 End: 04-04-2023 ambulatory Alisha Bergman Other [facility] Other Start: 04-04-2023 Office outpatient vi sit 25 minutes Alisha Bergman [facility] [place] Start: 02-09-2023 End: 02-09-2023 ambulatory Alishacarl Bergman Other [facility] Other Start: 02-09-2023 Telephone encounter Alisha Bergman [facility] Procedures Date Procedure Procedure Detail Performing Clinician Start: 05-28-2019 Bilateral cataract surgery Arabella Candace Surgical procedure Arabella Schw ab Immunizations Immunization Date Immunization Notes Care Provider Fa [facility] 04-12-2024 influenza virus vaccine, unspecified formulation Arabella Candace [facility] 04-04-2023 Prevnar 20 Alishacarl Bergman Other [facility] 03-02-2023 influenza virus vaccine, unspecified formulation Arabella Candace [facility] 02-25-2022 influenza, seasonal, injectable Alishacarl Bergman Other [facility] Other Payers Date Payer Category Payer Unknown [id number] 1938 Unknown [id number] 2.16.8 [id number] 1938 Unknown [id number] 2.16.8 40.1.060551.3.579.2 1938 Unknown [id number] 2.16.8 40.1.390587.3.579.2 1938 Unknown [id number] 2.16.8 40.1.227382.3.579.2.72 1938 Unknown [id number] 2.16.8 40.1.105203.3.579.2.727 1938 Unknown [id number] 2.16.8 40.1.219628.3.579.2.727 1938 Unknown [id number] 2.16.8 40.1.562342.3.579.2.727 1938 Unknown [id number] 2.16.8 40.1.008023.3.579.2.72 1938 Unknown [id number] 2.16.8 40.1.105453.3.579.2.72 1938 Unknown [id number] 2.16.8 40.1.273117.3.579.2.72 1938 Unknown [id number] 2.16.8 40.1.878851.3.579.2.727 1938 Unknown [id number] 2.16.8 40.1.715619.3.579.2.727 Medicare [id number] 2.1 [id number] Medicare [id number] 2.1 6.840.1.777045.19 Medicare [id number] 2.1 6.840.1.809704.19 Social History Date Type Detail Facility Sex Assigned At [facility] Start: 02-19-2024 End: 04-28-2024 Tobacco smoking status Never smoked tobacco (finding) [facility] Comment on above: denies use Tobacco smoking status Never [facility] Comment on above: denies use [...] Recorded influenza virus vaccine, inactivated 03/02/2023 Recorded [facility] Clinical Note 12-13-2023 Note Date & Type [...] if: ? Yo (more content not included)... [facility] Evaluation note 04-04-2023 Note Date & [...] continue Mar, Immunization due (ICD-10 - Z23) [employer] Other Evaluation + Plan note Note Date & Type Note Facility Evaluation + Plan note Future Appointments Appointment Date:12/15/2024 01:00:00 PM Scheduled Provider: Location:[facility] [place] Appointment Type:FM Medicare Wellness Subsequent [facility] Evaluation note Note Date & Type Note Facility Evaluation note No Information [facility] Other History general Narrative - Reported Note Date & Type Note Facility History general Narrative - Reported Type Medical History HTN Surgical History twisted colon sx 2015 Surgical History tonsillectomy Hospitalization History see above Hospitalization History child [facility] Other Hospital course Narrative Note Date & Type Note Facility Hospital course Narrative No data available for this section [facility] Hospital Discharge instructions Note Date & Type Note Facility Hospital Discharge instructions No data available for this section [facility] Progress note Note Date & Type Note Facility Progress note No data available for this section [facility] Reason for Referral Reason right hip pain Diagnosis 1 Right hip pain (M25. 551) Referral Organization [facility] Referring Provider First Name Alisha [...] content) Personnel Name: Arabella Mesa Address: Address: [address] [place] [address]- Personnel Name: Arabella Mesa Address: Address: [address] [place] [address]- INFORMATION SOURCE (unrecogn ized section and content) DATE CREATED AUTHOR 04/24/2024 [place] A[facility] [employer] [facility] DATE CREATED AUTHOR AUTHOR'S ORGANIZ ATION 04/25/2024 [place] [facility] [employer] [facility] DATE CREATED AUTHOR AUTHOR'S ORGANIZ ATION 04/30/2024 [place] A[facility] [employer] [facility] DATE CREATED AUTHOR AUTHOR'S ORGANIZ ATION 05/07/2024 [place] [facility]AINING TO PATIENTS [...] BE BASED ON THE PRIMARY CLINICAL RECORDS. [facility] [employer] [facility]. provides no warranty or guarantee of the accuracy or completeness of information in this document.
== END 2024-05-14 13:41 | disposition home or self-care (01) ==
LOC: MRI 13:41
PROVIDERS: Visit Provider Nurse Practitioner
DX: N28.1 Cyst of kidney, acquired (principal); K80.20 Calculus of gallbladder without cholecystitis without obstruction
CPT/HCPCS: 74183; A9575

== ENCOUNTER 2024-07-09 10:04 | Outpatient (OUT) | payer OTHER, SELFPAY ==
--- NOTE | 2024-07-09 10:08 | XR_ITS ---
[place] [id number] Patient Name: MARIAN LADD MRN: [id number] date: 1940 Sex: F Assigned Patient Location: [facility] Current Patient Location: Accession/Order Number: [id number] Exam Date: 07/09/2024 10:10 Report Date: 07/10/2024 09:23 At the request of: CRYSTAL URIBE Procedure: XR ankle RT min 3V PROCEDURE: XR ankle RT min 3V HISTORY: Right Ankle Pain COMPARISON: XR ankle right 04/09/2024 FINDINGS: BONES:Prior mechanical repair of distal fibula and medial malleolus; no appreciable hardware fracture loosening. No residual bone fracture. Joint space is maintained. SOFT TISSUES:No visible soft tissue swelling. EFFUSION:None visible. OTHER: Negative. XR/XR ankle RT min 3V IMPRESSION: 1. Stable surgical changes without is of hardware failure or change in alignment. 2. No appreciable residual fracture. Mild degenerative changes. Electronically authenticated by: LIZ ALMEIDA Date: 07/10/2024 09:23
== END 2024-07-09 10:05 | disposition home or self-care (01) ==
LOC: RAD 10:04
PROVIDERS: Visit Provider Podiatrist Foot & Ankle Surgery
DX: M25.571 Pain in right ankle and joints of right foot (principal)
CPT/HCPCS: 73610